=== PATIENT | male | born 1940 | race Caucasian/White ===

== ENCOUNTER 2017-07-20 05:09 | Day surgery (SDC) | payer OTHER, BC ==
[2017-07-07 12:19] VITALS: BMI 23.8
--- NOTE | 2017-07-08 13:02 | PATH ---
Cytology Non-Gynecological Report Patient Name: RAUL DOTY [facility]. Rec. #: [id number] /Age/Gender: 1940 (Age: 77) / M Account: [id number] Location: [facility] Taken: 07/07/2017 Received: 07/07/2017 Reported: 07/08/2017 Physicians: Jesus Bowie M.D. Specimen(s) Received URINE Clinical History Hematuria Final Diagnosis URINE FOR CYTOLOGY: SATISFACTORY FOR EVALUATION. NO MALIGNANT CELLS IDENTIFIED. SCATTERED DEGENERATE UROTHELIAL CELLS. DEGENERATED RED BLOOD CELLS. Electronically Signed Jose Antonio Carrera M.D. Gross Description Received is 15 cc of yellow fluid fresh. Two cytofunnel slides are made.
[~2017-07-20 05:09] MED LIST: POVIDONE-IODINE OINTMENT 10% - 28.4 GM TUBE TP ONE
[2017-07-20] MEDS ORDERED: HEPARIN NA (PORCINE) 5,000 UNITS/ML 1ML VIAL ONE (12:14)
[2017-07-20] MEDS ORDERED: PAPAVERINE HCL 30 MG/1 ML 10 ML VIAL NR ONE (12:14)
[2017-07-20] MEDS ORDERED: LIDOCAINE HCL 1%, 10 MG/ML (20ML VIAL) ONE (12:14)
[2017-07-20] MEDS ORDERED: DESFLURANE GAS 240 ML BOTTLE IH ONE (12:14)
[2017-07-20] MEDS ORDERED: ePHEDrine SULFATE 50 MG/1 ML AMPULE ONE (12:19)
[2017-07-20] MEDS ORDERED: PHENYLEPHRINE HCL 10 MG/1 ML SINGLE DOSE VIAL ONE (12:19)
[2017-07-20] MEDS ORDERED: SUCCINYLCHOLINE CHLORIDE 200 MG/10 ML VIAL ONE (12:20)
[2017-07-20] MEDS ORDERED: PROPOFOL 20 ML ONE ×4 (12:20)
[2017-07-20] MEDS ORDERED: MIDAZOLAM HCL 2 MG/2 ML SINGLE DOSE VIAL ONE (12:20)
[2017-07-20] MEDS ORDERED: LIDOCAINE HCL/PF 2% SDV 5ML VIAL ONE (12:27)
[2017-07-20] MEDS ORDERED: LIDOCAINE HCL 1%, 10 MG/ML (20ML VIAL) INF ONE (13:27)
[2017-07-20] MEDS ORDERED: HEPARIN NA (PORCINE) 5,000 UNITS/ML 1ML VIAL SQ ONE (13:27)
[2017-07-20] MEDS ORDERED: POVIDONE-IODINE OINTMENT 10% - 28.4 GM TUBE ONE (14:08)
[2017-07-20] MEDS ORDERED: POVIDONE-IODINE OINTMENT 10% - 28.4 GM TUBE TP ONE (14:31)
--- NOTE | 2017-07-20 14:42 | OP ---
Operative Note - Note: Operative Date: 07/20/17 Pre-Operative Diagnosis: Renal failure Operation: Creation AV fistula right arm Findings: Patent cephalic and basilic veins Post-Operative Diagnosis: Same as Pre-op Surgeon: Catarino Ribera Timber Robber: Ledy Vazquez Anesthesiologist/ADVERTISING VICE PRESIDENT: Eliud Leon Anesthesia: Fractional
--- NOTE | 2017-07-20 14:44 | HP ---
Satellite [facility] - Chief Complaint History of Present Illness: 77 year old man with renal failure stage 4. He is left handed. History Source: Patient Limitations to Obtaining History: No Limitations - Past Medical History Allergies/Adverse Reactions: Allergies Allergy/AdvReac Type Severity Reaction Status Date / Time No Known Allergies Allergy Verified 07/07/17 12:04 Cardiovascular: Yes: CAD, HTN, Hyperlipdemia - Current Medications Current Medications: Home Medications Medication Instructions Recorded Aspirin [Aspir 81] 81 mg PO DAILY 10/26/16 Amlodipine Besylate [Norvasc -] 10 mg PO DAILY 07/07/17 Isosorbide Mononitrate [Imdur -] 60 mg PO DAILY 07/07/17 Metoprolol Succinate [Toprol Xl -] 25 mg PO DAILY 07/07/17 Simvastatin [Zocor -] 20 mg PO HS 07/07/17 Satellite Physical Exam - Physical Examination Vital Signs: Vital Signs Period Temp Pulse Resp BP Sys/Rausch Pulse Ox Last 24 Hr 98.3 F 62 18 141/79 98 General Appearance: Alert & Oriented x3 ENT: Clear Lung: Clear to auscultation Heart: Regular rate & rhythm Abdomen: Soft Extremities: No edema Satellite Impression/Plan - Impression/Plan Impression: CKD Operative Procedure: Creation AV fistula right arm Date to be Performed: 07/20/17
[2017-07-20] MEDS ORDERED: ACETAMINOPHEN 325 MG TABLET (FP) PO PRN (14:47)
[2017-07-20] MEDS ORDERED: ACETAMINOPHEN WITH CODEINE 300MG/30MG TABLET PO PRN (14:48)
[2017-07-20] MEDS ORDERED: ONDANSETRON 4 MG/2 ML VIAL IVPUSH PRN (14:48)
--- NOTE | 2017-07-20 15:35 | OP ---
DATE OF OPERATION: 07/20/2017 SURGEON: Catarino Ribera MD PATIENT REGISTRATION REPRESENTATIVE: KIRSTEN Carr PROCEDURE: Creation arteriovenous fistula right arm. PREOPERATIVE DIAGNOSIS: Renal failure. POSTOPERATIVE DIAGNOSIS: Renal failure. ANESTHESIA: Fractional. ANESTHESIOLOGIST: Eliud Leon MD OPERATIVE FINDINGS: The right antecubital vein was patent, with runoff to both basilic and cephalic branches in the upper arm. The brachial artery was of normal cerebellar. OPERATIVE PROCEDURE: Following routine patient identification, side and site verification, intravenous sedation was established. The right arm was prepped with ChloraPrep. A Time-out was performed. One percent Xylocaine was infiltrated in the antecubital fossa, and then a longitudinal incision made. The subcutaneous tissues were divided using cautery for hemostasis. The antecubital vein was identified and carefully mobilized from the surrounding tissues. Small side branches were ligated. The cephalic and basilic branches were both preserved proximally. The distal cephalic vein was ligated. The deep communicating branch of the vein was then freed. The wound was deepened over the pulse and the brachial artery was mobilized and secured with a vessel loop. The distal branches were all individually secured. The artery was then occluded with vessel loops and a bulldog clamp. Then a longitudinal arteriotomy was made on the distal brachial artery, measuring approximately 6 mm in length. The vein was then opened through the deep branch and the end spatulated. It was anastomosed [id number] with the artery using running suture of 6-0 Prolene. Prior to completion of the suture line, the artery was allowed to back bleed and flush, and the vein was flushed with heparin solution. The suture line was completed and all vessels were released. There was good flow through the anastomosis with a palpable thrill in the vein proximally. Due to the adequate diameter of the cephalic vein, the decision was made to ligate the basilic vein just proximal to the anastomosis, and this was done with 2-0 silk. The wound was then irrigated and closed with interrupted suture of 3-0 Vicryl on the subcutaneous tissues and skin jacquie. A sterile dressing was applied. The patient was taken to the recovery room in stable condition. Beryl HIGGINBOTHAM/[id number] MTD
[2017-07-20 19:13] VITALS: BP 141/72; PULSE 69; TEMP 97.8
--- NOTE | 2017-07-21 15:54 | SURG ---
Surgery Awning Finisher Note Awning Finisher: Ledy Vazquez PA-C Date of Service: 07/20/17 Diagnosis: Renal failure Procedure: Creation AV fistula right arm I was present for the entirety of the operative procedure. For further detail, please refer to operative report. Visit type - Case Type Case Type: Scheduled Admission - Emergency Emergency Visit: No - New patient This patient is new to me today: Yes Date on this admission: 07/20/17 - Critical Care Critical Care patient: No
== END 2017-07-20 18:30 | disposition home or self-care (01) ==
LOC: JASU-SURG 05:09
PROVIDERS: ATTEND Surgery
PROC: 03170ZD Bypass Right Brachial Artery to Upper Arm Vein, Open Approach (ICD-10-PCS; principal; 2017-07-20 12:00)
DX: I12.0 Hypertensive chronic kidney disease with stage 5 chronic kidney disease or end stage renal disease (principal)
CPT/HCPCS: 88108; 94760; J1644

== ENCOUNTER 2017-07-31 09:13 | Inpatient (IN) | payer OTHER, BC ==
[2017-07-31 09:22] VITALS: BMI 26.9
--- NOTE | 2017-07-31 09:40 | PDOC ---
History of Present Illness <Alen Mcfarlane - Last Filed: 07/31/17 11:50> - General History Source: Patient Exam Limitations: No Limitations - History of Present Illness Initial Comments: 07/31/17 10:31 77 yo male with chronic kidney disease as a result of HTN, Diabetes and Dyslipidemia had fistula placed two weeks ago and saw his nitro worker on this past tuesday. He was feeling well then but feels awful now..... dyspnea, chest discomfort, malaise and fatigue. Called his doctor this morning who told him to come to the ED because he may need dialysis. Timing/Duration: changing over time, other (Getting worse over the past two or three days) Severity: moderate Modifying Factors: improves with: other (Nothing seems to make it worse or better) Associated Symptoms: reports: chest pain, malaise, shortness of breath <Asim Holden - Last Filed: 07/31/17 12:09> - General Chief Complaint: Chest Pain Stated Complaint: KIDNEY COMPLICATIONS Time Seen by Provider: 07/31/17 09:33 Past History <Alen Mcfarlane - Last Filed: 07/31/17 11:50> - Past Medical History Anemia: No Asthma: No Cancer: No Cardiac Disorders: No CVA: No COPD: No CHF: No Dementia: No Diabetes: Yes Dialysis: No (KIDNEY DISEASE) GI Disorders: No Disorders: No HTN: Yes Hypercholesterolemia: Yes Kidney Stones: (ESRD) Liver Disease: No Seizures: No Thyroid Disease: No - Surgical History Abdominal Surgery: Yes (bilat inguinal HERNIA) - Suicide/Smoking/Psychosocial Hx Smoking History: Former smoker Have you smoked in the past 12 months: No If you are a former smoker, when did you quit?: 30 years ago Information on smoking cessation initiated: No Hx Alcohol Use: No Drug/Substance Use Hx: No Substance Use Type: None Hx Substance Use Treatment: No <Asim Holden - Last Filed: 07/31/17 12:09> - Past Medical History Allergies/Adverse Reactions: Allergies Allergy/AdvReac Type Severity Reaction Status Date / Time No Known Allergies Allergy Verified 07/31/17 10:28 Home Medications: Ambulatory Orders Aspirin [Aspir 81] 81 mg PO DAILY 10/26/16 Amlodipine Besylate [Norvasc -] 10 mg PO DAILY 07/07/17 Isosorbide Mononitrate [Imdur -] 60 mg PO DAILY 07/07/17 Metoprolol Succinate [Toprol Xl -] 25 mg PO DAILY 07/07/17 Simvastatin [Zocor -] 20 mg PO HS 07/07/17 Cholecalciferol (Vitamin D3) [Vitamin D3 -] 400 unit PO DAILY 07/31/17 Review of Systems - Review of Systems Able to Perform ROS?: Yes Is the patient limited Urdu proficient: No Constitutional: Yes: See HPI HEENTM: No: Symptoms Reported Respiratory: Yes: See HPI Cardiac (ROS): Yes: See HPI ABD/GI: No: Symptoms Reported : No: Symptoms Reported Musculoskeletal: No: Symptoms Reported Integumentary: No: Symptoms Reported Neurological: No: Symptoms reported Psychiatric: No: Anxiety, Depression Endocrine: No: Symptoms Reported Hematologic/Lymphatic: No: Symptoms Reported All Other Systems: Reviewed and Negative <Asim Holden - Last Filed: 07/31/17 12:09> *Physical Exam - Vital Signs Last Vital Signs Temp Pulse Resp BP Pulse Ox 98.7 F 87 22 157/88 96 07/31/17 09:18 07/31/17 11:11 07/31/17 11:11 07/31/17 11:11 07/31/17 11:11 <Alen Mcfarlane - Last Filed: 07/31/17 11:50> - Vital Signs Last Vital Signs Temp Pulse Resp BP Pulse Ox 98.7 F 101 H 16 159/91 100 07/31/17 09:18 07/31/17 09:18 07/31/17 09:18 07/31/17 09:18 07/31/17 09:18 - Physical Exam Comments: 07/31/17 10:35 No conversational dyspnea // No orthopnea General Appearance: Yes: Nourished, Appropriately Dressed HEENT: positive: Normal ENT Inspection, Pharynx Normal, Other (NO Obvious JVD) Neck: positive: Supple. negative: Tender Respiratory/Chest: positive: Lungs Clear, Normal Breath Sounds. negative: Accessory Muscle Use Cardiovascular: positive: Regular Rhythm, Regular Rate. negative: JVD, Murmur Gastrointestinal/Abdominal: positive: Normal Bowel Sounds, Flat, Soft Lymphatic: negative: Adenopathy, Tenderness Musculoskeletal: positive: Normal Inspection Extremity: positive: Normal Capillary Refill, Normal Inspection Integumentary: positive: Normal Color, Dry, Warm Neurologic: positive: shaft repairer II-XII NML intact, Fully Oriented, Normal Mood/Affect <Asim Holden - Last Filed: 07/31/17 12:09> ED Treatment Course - LABORATORY CBC & Chemistry Diagram: 07/31/17 10:20 07/31/17 10:20 - ADDITIONAL ORDERS Additional order review: Laboratory Results 07/31/17 07/31/17 07/31/17 10:20 10:20 10:20 PT with INR 12.60 H INR 1.14 Sodium 140 Potassium 3.6 Chloride 109 H Carbon Dioxide 17 L D Anion Gap 14 BUN 93 H Creatinine 8.6 H* Creat Clearance w eGFR 6.03 Random Glucose 61 L D Lactic Acid Calcium 8.4 L Total Bilirubin 0.5 D AST 23 D ALT 22 Alkaline Phosphatase 94 Creatine Kinase 217 Troponin I 2.42 H* B-Natriuretic Peptide Cancelled 86688.35 H Total Protein 6.8 Albumin 3.1 L 07/31/17 09:46 PT with INR INR Sodium Potassium Chloride Carbon Dioxide Anion Gap BUN Creatinine Creat Clearance w eGFR Random Glucose Lactic Acid 0.7 Calcium Total Bilirubin AST ALT Alkaline Phosphatase Creatine Kinase Troponin I B-Natriuretic Peptide Total Protein Albumin 07/31/17 10:20 RBC 3.51 L MCV 85.8 MCHC 33.2 RDW 15.4 MPV 8.4 Neutrophils % 81.0 D Lymphocytes % 10.7 D Monocytes % 6.7 Eosinophils % 1.1 Basophils % 0.5 - Medications Given in the ED: ED Medications Discontinued Medications Generic Name Dose Route Start Last Admin Trade Name Freq PRN Reason Stop Dose Admin Metoprolol Tartrate 50 mg 07/31/17 11:31 07/31/17 11:41 Lopressor - PO 07/31/17 11:32 50 mg ONCE ONE Administration Nitroglycerin 0.4 mg 07/31/17 11:28 07/31/17 11:41 Nitrostat - SL 07/31/17 11:29 0.4 mg ONCE ONE Administration Ondansetron HCl 4 mg 07/31/17 09:54 07/31/17 10:36 Zofran Injection IVPUSH 07/31/17 09:55 4 mg ONCE ONE Administration <Alen Mcfarlane - Last Filed: 07/31/17 11:50> - LABORATORY CBC & Chemistry Diagram: 07/31/17 10:20 07/31/17 10:20 <Asim Holden - Last Filed: 07/31/17 12:09> Medical Decision Making - Medical Decision Making 07/31/17 11:[address] Dickens at 11:[address] Subramanian returned the page at 11:37 am Page sent to Dr. Bray at 11:20 am Page returned at 11:30 am Page sent to Dr. Roa at 11:[address] Tsai returned the page at 11:40 am Page sent to Dr. Bhandari at 11:[address] Bhandari returned the page at 11:37 am <Alen Mcfarlane - Last Filed: 07/31/17 11:50> - Medical Decision Making 07/31/17 11:[address] depression in V4-V5, No Old EKG for comparison, Troponin Elevated as well.... will consult Dr. Bray Will speak with PCP (Marlee) for admission Will speak with Nephrology and Vascular Surgery about Dialysis Will work towards admission and Dialysis 07/31/17 12:07 Cardiology wants patient to be totally pain free, Nitro and Lopressor Anticoagulated on Plavix and Heparin Spoke with Dr Jesus Gallo, Nephrology, no need for urgent dialysis (can delay catheter placement) Spoke with Vascular (aware of situation) Tried to speak with Bradford the [employer] in the ICU - still waiting to connect. Will admit to ICU <Asim Holden - Last Filed: 07/31/17 12:09> *DC/Admit/Observation/Transfer <Alen Mcfarlane - Last Filed: 07/31/17 11:50> - Discharge Dispostion Admit: Yes <Asim Holden - Last Filed: 07/31/17 12:09> Diagnosis at time of Disposition: Non-ST elevation RI (NSTEMI), End stage chronic kidney disease, Dyslipidemia Diabetes Qualifiers: Diabetes mellitus type: type 2 Diabetes mellitus complication status: with kidney complications Diabetes mellitus complication detail: with chronic kidney disease Diabetes mellitus terminal gauger insulin use: without terminal gauger use Chronic kidney disease stage: stage 5, not on chronic dialysis Qualified Code(s): E11.22 - Type 2 diabetes mellitus with diabetic chronic kidney disease Volume overload Qualifiers: Hypervolemia type: unspecified Qualified Code(s): E87.70 - Fluid overload, unspecified Hypertension Qualifiers: Hypertension type: essential hypertension Qualified Code(s): I10 - Essential ( primary) hypertension - Discharge Dispostion Condition at time of disposition: Improved
[2017-07-31] MEDS ORDERED: ONDANSETRON 4 MG/2 ML VIAL IVPUSH ONE (09:54)
[2017-07-31 10:30] LABS: BASOPHIL 0.5 % (0-2.0); EOSINOPHIL 1.1 % (0-4.5); MCH 28.5 pg (25.7-33.7); MCHC 33.2 g/dl (32.0-35.9); MEAN CELL VOLUME 85.8 fl (80-96); MEAN PLT VOLUME 8.4 fl (7.5-11.1); PLATELET COUNT 221 K/MM3 (134-434); RDW 15.4 % (11.9-15.9)
[2017-07-31] MEDS ORDERED: ONDANSETRON 4 MG/2 ML VIAL ONE (10:33)
[2017-07-31 10:43] LABS: INR 1.14 (0.82-1.09); PROTHROMBIN TIME (PATIENT) 12.6 SEC (9.98-11.88)
[2017-07-31 10:50] LABS: ALBUMIN 3.1 g/dl (3.4-5.0); ANION GAP 14 (8-16); BILIRUBIN,TOTAL 0.5 mg/dL (0.2-1.0); CALCIUM 8.4 mg/dL (8.5-10.1); CO2 17 mmol/L (21-32); GLUCOSE,RANDOM 61 mg/dL (74-106); SGOT/AST 23 U/L (15-37); SGPT/ALT 22 U/L (12-78); TOT PROT 6.8 g/dl (6.4-8.2)
[2017-07-31 11:04] LABS: ALK PHOS 94 U/L (45-117); CPK 217 IU/L (39-308)
[2017-07-31 11:06] LABS: CREATININE 8.6 mg/dL (0.7-1.3); TROPONIN I 2.42 ng/ml (0.00-0.05)
[2017-07-31] MEDS ORDERED: NITROGLYCERIN SUBLINGUAL 1/150 0.4 MG TAB SL ONE ×3 (11:28→12:39)
[2017-07-31] MEDS ORDERED: METOPROLOL TARTRATE 50 MG TABLET (FP) PO ONE (11:31)
[2017-07-31] MEDS ORDERED: METOPROLOL TARTRATE 50 MG TABLET (FP) ONE (11:37)
[2017-07-31] MEDS ORDERED: HEPARIN NA (PORCINE) 5,000 UNITS/ML 1ML VIAL IVPUSH PRN ×2 (11:47)
[2017-07-31] MEDS ORDERED: CLOPIDOGREL BISULFATE 300 MG TABLET PO ONE (11:47)
[2017-07-31] MEDS ORDERED: CLOPIDOGREL BISULFATE 300 MG TABLET ONE (11:54)
[2017-07-31] MEDS ORDERED: HEPARIN NA (PORCINE) 5,000 UNITS/ML 1ML VIAL ONE (11:55)
[2017-07-31] MEDS: HEPARIN INFUSION - 500 ML IVPB SCH (12:00)
[2017-07-31] MEDS ORDERED: FUROSEMIDE 40 MG/4 ML INJECTABLE VIAL IVPUSH ONE (12:02)
[2017-07-31] MEDS ORDERED: METOLAZONE 10 MG TABLET PO ONE (12:02)
[2017-07-31] MEDS ORDERED: HEPARIN INFUSION - 500 ML IVPB ONE (12:11)
[2017-07-31 12:36] LABS: URINE APPEARANCE CLEAR; URINE BILIRUBIN NEGATIVE (NEGATIVE); URINE BLOOD 1+ (NEGATIVE); URINE COLOR STRAW; URINE GLUCOSE (UA) 1+ (NEGATIVE); URINE KETONE TRACE (NEGATIVE); URINE NITRITE NEGATIVE (NEGATIVE); URINE UROBILINOGEN NEGATIVE mg/dL (0.2-1.0)
[2017-07-31 12:39] LABS: URINE PROTEIN 2+ (NEGATIVE)
[2017-07-31 12:50] LABS: URINE BACTERIA RARE /hpf (NONE SEEN); URINE RBC <1 /hpf (0-3); URINE WBC 1 /hpf (3-5)
[2017-07-31] MEDS ORDERED: FUROSEMIDE 40 MG/4 ML INJECTABLE VIAL IVPB ONE (14:12)
--- NOTE | 2017-07-31 14:41 | CON.NEP ---
Consult - Past Medical History Cardio/Vascular: Yes: CAD, HTN, Hyperlipdemia - Alcohol/Substance Use Hx Alcohol Use: No - Smoking History Smoking history: Former smoker Have you smoked in the past 12 months: No If you are a former smoker, when did you quit?: 30 years ago Home Medications - Allergies Allergies/Adverse Reactions: Allergies Allergy/AdvReac Type Severity Reaction Status Date / Time No Known Allergies Allergy Verified 07/31/17 10:28 - Home Medications Home Medications: Ambulatory Orders Aspirin [Aspir 81] 81 mg PO DAILY 10/26/16 Amlodipine Besylate [Norvasc -] 10 mg PO DAILY 07/07/17 Isosorbide Mononitrate [Imdur -] 60 mg PO DAILY 07/07/17 Metoprolol Succinate [Toprol Xl -] 25 mg PO DAILY 07/07/17 Simvastatin [Zocor -] 20 mg PO HS 07/07/17 Cholecalciferol (Vitamin D3) [Vitamin D3 -] 400 unit PO DAILY 07/31/17 Nephrology Consult - Height Height: 5 ft 3 in - Weight Weight: 152 lb - BMI Body Mass Index (BMI): 26.9 - Lab Results Anion Gap: Anion Gap Anion Gap 14 (8-16) 07/31/17 10:20 - Physical Examination Vital Signs: Vital Signs Temperature 98.5 F 07/31/17 13:23 Pulse Rate 74 07/31/17 13:23 Respiratory Rate 19 07/31/17 13:23 Blood Pressure 140/78 07/31/17 13:23 O2 Sat by Pulse Oximetry (%) 100 07/31/17 13:23 Assessment/Plan CKD5 r/o uremic symptoms- Recent nausea/vomiting on tuesday 5 days ago, not continuous, resolved after one day clinically stable, no urgent indication for dialysis fluid overload with exertional dyspnea and by CXR and BNP levels RUE AVF not yet ready (2 weeks old ACS - st and T wave depression, elevated TNI and BNP can occur in setting of renal failure with fluid overload - no peripheral edema HTN Neuro intact Plan- will need HD during this admission needs access for HD if he goes for cath, he will get HD post cath
[2017-07-31 14:51] LABS: URINE LEUK ESTERASE Negative (NEGATIVE)
--- NOTE | 2017-07-31 14:55 | CONSULT ---
Consult Referred by:: Pulm/CCM Reason for Consultation:: hypoxia, PR, ESRD - History of Present Illness Chief Complaint: chest pain and SOB History of Present Illness: This is a 77 yo man DM, CAD, CKD: stage 5 s/p recent AV fistula, HTN, HLD who developed progressive orthopnea, SOB/JACOBO with intermittent progressive chest pain over the last 24hrs. In ED patient hypertensive ([id number]) w/ CP t/w nitro SL x3 and lopressor 50mg po. Lasix 40mg and zaroxolyn given. Lab significant for SCr: 8.6, BUN: 93, troponin: 2.42, BNP: 17k. EKG: new ST depression v4-5. Cardiology was called. Plavix po and heparin gtt started. Nephrology consulted. - History Source History Provided By: Patient, Family Member, Medical Record - Past Medical History Cardio/Vascular: Yes: CAD, HTN, Hyperlipdemia Renal/: Yes: Renal Inusuff (stage 5) - Alcohol/Substance Use Hx Alcohol Use: No - Smoking History Smoking history: Former smoker Have you smoked in the past 12 months: No If you are a former smoker, when did you quit?: 30 years ago Home Medications - Allergies Allergies/Adverse Reactions: Allergies Allergy/AdvReac Type Severity Reaction Status Date / Time No Known Allergies Allergy Verified 07/31/17 10:28 - Home Medications Home Medications: Ambulatory Orders Aspirin [Aspir 81] 81 mg PO DAILY 10/26/16 Amlodipine Besylate [Norvasc -] 10 mg PO DAILY 07/07/17 Isosorbide Mononitrate [Imdur -] 60 mg PO DAILY 07/07/17 Metoprolol Succinate [Toprol Xl -] 25 mg PO DAILY 07/07/17 Simvastatin [Zocor -] 20 mg PO HS 07/07/17 Cholecalciferol (Vitamin D3) [Vitamin D3 -] 400 unit PO DAILY 07/31/17 Family Disease History - Family Disease History Family History: Unremarkable Review of Systems - Review of Systems Constitutional: reports: Lethargy, Malaise Cardiovascular: reports: Chest Pain, Shortness of Breath, Other (orthopnea, PND) Respiratory: reports: SOB on Exertion Gastrointestinal: reports: Nausea Neurological: reports: No Symptoms Physical Exam Vital Signs: Vital Signs Temperature 98.5 F 07/31/17 13:23 Pulse Rate 74 07/31/17 13:23 Respiratory Rate 19 07/31/17 13:23 Blood Pressure 140/78 07/31/17 13:23 O2 Sat by Pulse Oximetry (%) 100 07/31/17 13:23 Constitutional: Yes: Moderate Distress Eyes: Yes: EOM Intact Cardiovascular: Yes: S1, S2 Respiratory: Yes: On Nasal O2, Rales, Wheezes Gastrointestinal: Yes: Normal Bowel Sounds, Soft Edema: LLE: 1+, RLE: 1+ Integumentary: Yes: WNL Neurological: Yes: Alert, Oriented Labs: CBCD WBC 9.0 K/mm3 (4.0-10.0) D 07/31/17 10:20 RBC 3.51 M/mm3 (4.00-5.60) L 07/31/17 10:20 Hgb 10.0 GM/dL (11.7-16.9) L 07/31/17 10:20 Hct 30.1 % (35.4-49) L 07/31/17 10:20 MCV 85.8 fl (80-96) 07/31/17 10:20 MCHC 33.2 g/dl (32.0-35.9) 07/31/17 10:20 RDW 15.4 % (11.9-15.9) 07/31/17 10:20 Plt Count 221 K/MM3 (134-434) 07/31/17 10:20 MPV 8.4 fl (7.5-11.1) 07/31/17 10:20 CMP Sodium 140 mmol/L (136-145) 07/31/17 10:20 Potassium 3.6 mmol/L (3.5-5.1) 07/31/17 10:20 Chloride 109 mmol/L (98-107) H 07/31/17 10:20 Carbon Dioxide 17 mmol/L (21-32) L D 07/31/17 10:20 Anion Gap 14 (8-16) 07/31/17 10:20 BUN 93 mg/dL (7-18) H 07/31/17 10:20 Creatinine 8.6 mg/dL (0.7-1.3) H* 07/31/17 10:20 Creat Clearance w eGFR 6.03 (>60) 07/31/17 10:20 Random Glucose 61 mg/dL (74-106) L D 07/31/17 10:20 Calcium 8.4 mg/dL (8.5-10.1) L 07/31/17 10:20 Total Bilirubin 0.5 mg/dL (0.2-1.0) D 07/31/17 10:20 AST 23 U/L (15-37) D 07/31/17 10:20 ALT 22 U/L (12-78) 07/31/17 10:20 Alkaline Phosphatase 94 U/L (45-117) 07/31/17 10:20 Total Protein 6.8 g/dl (6.4-8.2) 07/31/17 10:20 Albumin 3.1 g/dl (3.4-5.0) L 07/31/17 10:20 CARDIAC ENZYMES Creatine Kinase 217 IU/L (39-308) 07/31/17 10:20 Troponin I 2.42 ng/ml (0.00-0.05) H* 07/31/17 10:20 Imaging - Results Chest X-ray: Report Reviewed, Image Reviewed (PVC) Problem List - Problems (1) Diabetes Code(s): E11.9 - TYPE 2 DIABETES MELLITUS WITHOUT COMPLICATIONS Qualifiers: Diabetes mellitus type: type 2 Diabetes mellitus complication status: with kidney complications Diabetes mellitus complication detail: with chronic kidney disease Diabetes mellitus termite renewal inspector insulin use: without care home use Chronic kidney disease stage: stage 5, not on chronic dialysis Qualified Code(s): E11.22 - Type 2 diabetes mellitus with diabetic chronic kidney disease; E11.22 - Type 2 diabetes mellitus with diabetic chronic kidney disease; E11.22 - Type 2 diabetes mellitus with diabetic chronic kidney disease; E11.22 - Type 2 diabetes mellitus with diabetic chronic kidney disease; E11.22 - Type 2 diabetes mellitus with diabetic chronic kidney disease; N18.1 - Chronic kidney disease, stage 1; N18.1 - Chronic kidney disease, stage 1; Z79.4 - snf (current) use of insulin; Z79.4 - terminal makeup operator (current) use of insulin; Z79.4 - snf (current) use of insulin; Z79.4 - terminal makeup operator (current) use of insulin (2) Dyslipidemia Code(s): E78.5 - HYPERLIPIDEMIA, UNSPECIFIED (3) End stage chronic kidney disease Code(s): N18.6 - END STAGE RENAL DISEASE Z99.2 - DEPENDENCE ON RENAL DIALYSIS (4) Hypertension Code(s): I10 - ESSENTIAL (PRIMARY) HYPERTENSION Qualifiers: Hypertension type: essential hypertension Qualified Code(s): I10 - Essential (primary) hypertension; I10 - Essential (primary) hypertension; I10 - Essential (primary) hypertension (5) Non-ST elevation PR (NSTEMI) Code(s): I21.4 - NON-ST ELEVATION (NSTEMI) MYOCARDIAL INFARCTION (6) Volume overload Code(s): E87.70 - FLUID OVERLOAD, UNSPECIFIED Qualifiers: Hypervolemia type: unspecified Qualified Code(s): E87.70 - Fluid overload, unspecified; E87.70 - Fluid overload, unspecified (7) Hypoxia Code(s): R09.02 - HYPOXEMIA Assessment/Plan a/p: 77 yo man DM, CKD stage 5 who had progressive orthopnea, JACOBO/SOB and intermittent CP likely w/ recent PR now with hypoxia r/t pulmonary vascular congestion -Cardiology consulted -Lopressor 50mg q6hr Nitro for BP goal 120-140 -Heparin gtt -plavix/ASA/statin -trend troponin -possible transfer for cardiac cath -EKG/TTE -Renal consulted -no acute indication for HD but will likely need this admission, will need stable cardiac exam prior to iHD initiation -will attempt high dose lasix -will need dialysis cath for HD -GI prophylaxis given anticoagulation -CPAP for pulmonary edema -O2 for sat >92% -normal transfusion thresholds Boerem ACNP Pulm/CCM CCT: 45m
[2017-07-31] MEDS ORDERED: FAMOTIDINE 20 MG/50 ML IVPB 50 ML IVPB SCH (15:00)
[2017-07-31] MEDS ORDERED: ASPIRIN 325 MG TABLET PO ONE (15:06)
--- NOTE | 2017-07-31 15:19 | EKG ---
Test Reason : Blood Pressure : / mmHG Vent. Rate : 085 BPM Atrial Rate : 085 BPM P-R Int : 140 ms QRS Dur : 098 ms QT Int : 418 ms P-R-T Axes : 032 -33 020 degrees QTc Int : 497 ms NORMAL SINUS RHYTHM POSSIBLE LEFT ATRIAL ENLARGEMENT (RBBB AND LEFT ANTERIOR FASCICULAR BLOCK) LEFT VENTRICULAR HYPERTROPHY PROLONGED QT ABNORMAL ECG WHEN COMPARED WITH ECG OF 31-JUL-2017 09:30, ST NO LONGER DEPRESSED IN ANTERIOR LEADS NONSPECIFIC T WAVE ABNORMALITY NOW EVIDENT IN INFERIOR LEADS REPEAT EKG IF CLINICALLY INDICATED Confirmed by MEGHANA LOREDO MD ([id number]) on 07/31/2017 3:19:15 PM Referred By: Lashay JEAN-BAPTISTE Confirmed By:MEGHANA LOREDO MD
--- NOTE | 2017-07-31 15:31 | EKG ---
Test Reason : Blood Pressure : / mmHG Vent. Rate : 099 BPM Atrial Rate : 099 BPM P-R Int : 144 ms QRS Dur : 106 ms QT Int : 384 ms P-R-T Axes : 031 -37 082 degrees QTc Int : 492 ms NORMAL SINUS RHYTHM POSSIBLE LEFT ATRIAL ENLARGEMENT LEFT AXIS DEVIATION LEFT ANTERIOR HEMIBLOCK MARKED ST ABNORMALITY, POSSIBLE ANTEROLATERAL SUBENDOCARDIAL INJURY PROLONGED QT ABNORMAL ECG NO PREVIOUS ECGS AVAILABLE FOLLOW EKG AND CLINICAL CORRELATION IS RECOMMENDED Confirmed by MEGHANA LOREDO MD ([id number] on 07/31/2017 3:31:00 PM Referred By: Confirmed By:MEGHANA LOREDO MD
[2017-07-31] MEDS: NITROGLYCERIN 25MG/D5W 250ML 250 ML IVPB SCH (15:50)
--- NOTE | 2017-07-31 18:19 | HP ---
Admitting History and Physical - Primary Care Physician PCP: Rehana Dickens - Admission Chief Complaint: Shortness of breath History of Present Illness: 77 yo male with significant past medical history of DM, CAD, CKD: stage 5 s/p recent AV fistula, HTN, HLD, presented to the ER with shortness of breath on exertion, progressive orthopnea and intermittent progressive chest pain over the last 24hrs. In ED patient hypertensive ([id number]) w/ CP t/w nitro SL x3 and lopressor 50mg po. Lasix 40mg and zaroxolyn given. Lab significant for SCr: 8.6 , BUN: 93, troponin: 2.42, BNP: 17k. EKG: new ST depression v4-5. Cardiology was called. Plavix po and heparin gtt started. Nephrology consulted. History Source: Family Member, Medical Record Limitations to Obtaining History: Clinical Condition, Physical Impairment - Past Medical History Cardiovascular: Yes: CAD, HTN, Hyperlipdemia Renal/: Yes: Renal Inusuff (stage 5) - Smoking History Smoking history: Former smoker Have you smoked in the past 12 months: No If you are a former smoker, when did you quit?: 30 years ago - Alcohol/Substance Use Hx Alcohol Use: No Home Medications - Allergies Allergies/Adverse Reactions: Allergies Allergy/AdvReac Type Severity Reaction Status Date / Time No Known Allergies Allergy Verified 07/31/17 10:28 - Home Medications Home Medications: Ambulatory Orders Aspirin [Aspir 81] 81 mg PO DAILY 10/26/16 Amlodipine Besylate [Norvasc -] 10 mg PO DAILY 07/07/17 Isosorbide Mononitrate [Imdur -] 60 mg PO DAILY 07/07/17 Metoprolol Succinate [Toprol Xl -] 25 mg PO DAILY 07/07/17 Simvastatin [Zocor -] 20 mg PO HS 07/07/17 Cholecalciferol (Vitamin D3) [Vitamin D3 -] 400 unit PO DAILY 07/31/17 Review of Systems - Review of Systems Constitutional: reports: Weakness Eyes: reports: No Symptoms HENT: reports: Hearing Loss Neck: reports: No Symptoms Cardiovascular: reports: Chest Pain, Shortness of Breath Respiratory: reports: Orthopnea, SOB on Exertion Gastrointestinal: reports: No Symptoms Genitourinary: reports: No Symptoms Musculoskeletal: reports: No Symptoms Neurological: reports: No Symptoms Endocrine: reports: No Symptoms Hematology/Lymphatic: reports: No Symptoms Physical Examination Vital Signs: Vital Signs Temperature 98.5 F 07/31/17 13:23 Pulse Rate 74 07/31/17 13:23 Respiratory Rate 19 07/31/17 13:23 Blood Pressure 140/78 07/31/17 13:23 O2 Sat by Pulse Oximetry (%) 99 07/31/17 17:23 Constitutional: Yes: Anxious, Moderate Distress Eyes: Yes: Conjunctiva Clear, EOM Intact HENT: Yes: Atraumatic, Normocephalic Neck: Yes: Supple, Trachea Midline Cardiovascular: Yes: Regular Rate and Rhythm Respiratory: Yes: Dullness (B/L Lung base) Gastrointestinal: Yes: Normal Bowel Sounds, Soft Peripheral Pulses WNL: Yes Neurological: Yes: Alert, Oriented ...Motor Strength: WNL Psychiatric: Yes: Alert, Oriented Imaging - Results Chest X-ray: Report Reviewed Problem List - Problems (1) Non-ST elevation MS (NSTEMI) Assessment/Plan: Abnormal EKG. Elevated Troponins. Cardiology consulted. On Heprain gtt Continue aspirin/plavix/statin. Continue metoprolol. Possible transfer for cardiac cath. Code(s): I21.4 - NON-ST ELEVATION (NSTEMI) MYOCARDIAL INFARCTION (2) End stage chronic kidney disease Assessment/Plan: Renal consult noted. S/P V fistula 2 weeks ago. Not ready yet. Will need dialysis this admission. Code(s): N18.6 - END STAGE RENAL DISEASE Z99.2 - DEPENDENCE ON RENAL DIALYSIS (3) Diabetes Assessment/Plan: Continue ISS and current meds. Code(s): E11.9 - TYPE 2 DIABETES MELLITUS WITHOUT COMPLICATIONS Qualifiers: Diabetes mellitus type: type 2 Diabetes mellitus complication status: with kidney complications Diabetes mellitus complication detail: with chronic kidney disease Diabetes mellitus termite renewal inspector insulin use: without termite renewal inspector use Chronic kidney disease stage: stage 5, not on chronic dialysis Qualified Code(s): E11.22 - Type 2 diabetes mellitus with diabetic chronic kidney disease; E11.22 - Type 2 diabetes mellitus with diabetic chronic kidney disease; E11.22 - Type 2 diabetes mellitus with diabetic chronic kidney disease; E11.22 - Type 2 diabetes mellitus with diabetic chronic kidney disease; E11.22 - Type 2 diabetes mellitus with diabetic chronic kidney disease; N18.1 - Chronic kidney disease, stage 1; N18.1 - Chronic kidney disease, stage 1; Z79.4 - shelter (current) use of insulin; Z79.4 - termite treater (current) use of insulin; Z79.4 - termite treater (current) use of insulin; Z79.4 - termite treater (current) use of insulin (4) Dyslipidemia Assessment/Plan: Continue atorvastatin. Code(s): E78.5 - HYPERLIPIDEMIA, UNSPECIFIED (5) Hypertension Assessment/Plan: Continue metoprolol Code(s): I10 - ESSENTIAL (PRIMARY) HYPERTENSION Qualifiers: Hypertension type: essential hypertension Qualified Code(s): I10 - Essential (primary) hypertension; I10 - Essential (primary) hypertension; I10 - Essential (primary) hypertension (6) ACS (acute coronary syndrome) Code(s): I24.9 - ACUTE ISCHEMIC HEART DISEASE, UNSPECIFIED
--- NOTE | 2017-07-31 18:35 | CON.CARD ---
Cardiology Consult (text) - Consultation Consultation Note: CC: CP/nstemi 77 yo with h/o cad (s/p mild mi 1990 per pt tx with cath/angioplasty), htn, hl, carotid dz s/p left cea 02/2017, ESRD s/p AV fisutula last month in anticipation of HD initiation, htn, hld, dm here with cp/nstemi. Central non-radiating cp. acute onset last night. Intermittent sx's severe enough to prevent him from sleeping. Mild improvement with sitting up and resolution with burping. Similar to pain he had with his last DC in 1990. Recently with renee walking minimal distance, unchanged. Denies orthopnea. Denies recent cp with exertion. In ED was tachycardic, + CP --> nitro SL x3 and lopressor 50mg po with resolution of chest discomfort and resolution of tachycardia. plavix, asa, heparin drip administered. CXR with congestion --> Lasix 40mg iv x 1 and zaroxolyn 10 mg PO x1 given with poor uop response. In ICU, . Currently patient is tachypneic but states his breathing is at baseline. No recurrence of CP since arriving in ICU. In ICU lasix 120 mg IV x 1 given with good uop response. BP's still not at goal so nitroglycerin drip started. pmhx/pshx: per hip Social hx; Former smoker fam hx: no hx of heart disease ros: per hpi Ambulatory Orders Aspirin [Aspir 81] 81 mg PO DAILY 10/26/16 Amlodipine Besylate [Norvasc -] 10 mg PO DAILY 07/07/17 Isosorbide Mononitrate [Imdur -] 60 mg PO DAILY 07/07/17 Metoprolol Succinate [Toprol Xl -] 25 mg PO DAILY 07/07/17 Simvastatin [Zocor -] 20 mg PO HS 07/07/17 Cholecalciferol (Vitamin D3) [Vitamin D3 -] 400 unit PO DAILY 07/31/17 Current Medications Aspirin (Ecotrin -) 81 mg PO DAILY [facility]U Atorvastatin Calcium (Lipitor -) 80 mg PO HS MAU Clopidogrel Bisulfate (Plavix -) 75 mg PO DAILY MAU Heparin Sodium (Porcine) (Heparin -) 1,000 unit IVPUSH PRN PRN PRN Reason: Heparin Heparin Sodium (Porcine) (Heparin -) 5,000 unit IVPUSH PRN PRN PRN Reason: Heparin Last Admin: 07/31/17 12:14 Dose: 5,000 unit Heparin Sodium/Dextrose (Heparin Infusion -) 500 mls @ 20 mls/hr IVPB TITR MAU ; 1,000 UNITS/HR PRN Reason: Protocol Last Admin: 07/31/17 12:00 Dose: 20 mls/hr Famotidine/Sodium Chloride (Pepcid 20 Mg Premixed Ivpb -) 50 mls @ 100 mls/hr IVPB Q2D MAU Last Admin: 07/31/17 15:50 Dose: 100 mls/hr Nitroglycerin/Dextrose (Nitroglycerin 25mg/D5w 250ml) 250 mls @ 6 mls/hr IVPB TITR MAU; 10 MCG/MIN PRN Reason: Protocol Last Admin: 07/31/17 15:50 Dose: 6 mls/hr Sodium Bicarbonate (Sodium Bicarbonate -) 650 mg PO TID MAU Vital Signs - 24 hr 07/31/17 07/31/17 07/31/17 09:18 09:46 09:50 Temperature 98.7 F Pulse Rate 101 H Pulse Rate [ Apical] Respiratory 16 Rate Blood Pressure 159/91 Blood Pressure [Left Arm] O2 Sat by Pulse 100 100 100 Oximetry (%) 07/31/17 07/31/17 07/31/17 11:11 11:55 12:32 Temperature Pulse Rate Pulse Rate [ 87 89 70 Apical] Respiratory 22 24 18 Rate Blood Pressure Blood Pressure 157/88 136/75 133/87 [Left Arm] O2 Sat by Pulse 96 96 Oximetry (%) 07/31/17 07/31/17 13:23 17:23 Temperature 98.5 F Pulse Rate Pulse Rate [ 74 Apical] Respiratory 19 Rate Blood Pressure Blood Pressure 140/78 [Left Arm] O2 Sat by Pulse 100 99 Oximetry (%) Intake & Output 07/29/17 07/30/17 07/31/17 08/01/17 07:59 07:59 07:59 07:59 Intake Total 168 Output Total 100 Balance 68 Weight 152 lb nad, calm tachypneic (RR 30) jvd increased, neck supple bibasilar rales, nl effort rrr nl s1, s2. no mrg. displaced pmi + bs soft nt nd ext without e/c/c diminished dp/pt no carotid bruit aaox3 no jaundice, diaphoresis. CBC, BMP 07/31/17 10:20 07/31/17 10:20 Laboratory Tests 07/31/17 07/31/17 09:46 10:20 Lactic Acid 0.7 Total Bilirubin 0.5 D AST 23 D ALT 22 Alkaline Phosphatase 94 Creatine Kinase 217 Creatine Kinase Index 5.8 H CK-MB (CK-2) 12.766 H Troponin I 2.42 H* B-Natriuretic Peptide 60263.35 H Albumin 3.1 L EKG 07/31 #1: nsr, 99 bpm. lad. prolonged qt. New downsloping STD in the anterolateral leads. EKG 07/31 #2: nsr, 85 bpm. lad. prolonged qt. anterolateral changes still present but much improved. tele: sr cxr: cm. congestion. possible RLL infiltrate. echo 10/2016: nl lv/rv, no sig valve path mibi 10/2016: nl mpi, nl lvef.eg 77 yo with h/o cad (s/p mild mi 1990 per pt tx with cath/angioplasty), htn, hl, carotid dz s/p left cea 02/2017, ESRD s/p AV fisutula last month in anticipation of HD initiation, htn, hld, dm here with cp/nstemi. CP/nstemi/known cad - Initial EKG borderline tachycardic with new ekg changes (improved on follow up ekg after heart rate slowed). - ACS protocol: asa, plavix, heparin, statin. nitroglycerin to keep patient cp free and sys bp < 140. Can add metoprolol tartrate 25 mg or 50 mg (depending on bp) TID to maintain HR < 70. - s/p lasix 120 mg x 1 today with good uop response. Would repeat dose tomorrow. Can use bipap if needed. - discussed recommendation for cardiac catheterization with patient and family. Patient states he would like to be dnr/dni. Counseled patient on the need to temporarily reverse dnr/dni jordy-procedure in order to get cardiac catheterization. However, patient currently declining. --> con't medical management of nstemi per patient preference. - repeat echo in am. - HD initiation per renal and when stable from perspective of nstemi. htn - as above Hl - con't statin s/p L CEA 02/2017 - no neurologic sx's. anti-platelets, statin as above ESRD s/p AV fistula last month in anticipation of HD initiation (not yet mature) - timing of HD intiation per renal. Currently no need for emergent HD. Recommend deferring for today until there is more information on clinical course.
[2017-07-31] MEDS ORDERED: POTASSIUM CHLORIDE TABS 20 MEQ TABLET.ER (FP) PO ONE (19:07)
[2017-07-31 19:53] LABS: TROPONIN I 5.11 ng/ml (0.00-0.05)
[2017-07-31] MEDS: SODIUM BICARBONATE 650 MG TABLET PO SCH (21:49)
[2017-07-31] MEDS: METOPROLOL TARTRATE 25 MG TABLET (FP) PO SCH (21:49)
[2017-07-31] MEDS: ATORVASTATIN CA 80 MG TABLET (FP) PO SCH (21:49)
[2017-08-01 02:06] LABS: TROPONIN I 6.94 ng/ml (0.00-0.05)
[2017-08-01 05:58] LABS: BASOPHIL 0.2 % (0-2.0); EOSINOPHIL 0.6 % (0-4.5); MCH 28.6 pg (25.7-33.7); MCHC 33.2 g/dl (32.0-35.9); MEAN CELL VOLUME 86.2 fl (80-96); NEUTROPHILS 79.9 % (42.8-82.8); PLATELET COUNT 212 K/MM3 (134-434); RDW 15.4 % (11.9-15.9); WHITE BLOOD COUNT 9.6 K/mm3 (4.0-10.0)
[2017-08-01] MEDS: SODIUM BICARBONATE 650 MG TABLET PO SCH ×3 (06:13→21:41)
[2017-08-01] MEDS: METOPROLOL TARTRATE 25 MG TABLET (FP) PO SCH ×3 (06:13→21:41)
--- NOTE | 2017-08-01 09:17 | PN ---
Physical Exam: SUBJECTIVE: Patient seen and examined at bedside. He states he has been experiencing the "gas" pains that caused him to come to hospital. He restates his desire to not have cardiac catheterization at this time. OBJECTIVE: Vital Signs Period Temp Pulse Resp BP Sys/Rausch Pulse Ox Last 24 Hr 98.5 F-100.4 F 70-88 18-26 133-153/74-90 98-100 GENERAL: The patient is awake, alert, and fully oriented, in no acute distress. HEAD: Normal with no signs of trauma. EYES: PERRL, extraocular movements intact, sclera anicteric, conjunctiva clear. No ptosis. NECK: Trachea midline, full range of motion, supple. No JVD. LUNGS: Breath sounds equal, clear to auscultation bilaterally, no wheezes, no crackles, no accessory muscle use. HEART: Regular rate and rhythm, S1, S2 without murmur, rub or gallop. ABDOMEN: Soft, nontender, nondistended, normoactive bowel sounds, no guarding, no rebound, no hepatosplenomegaly, no masses. (+) flatus. EXTREMITIES: 1+ pulses, warm, well-perfused, no edema. NEUROLOGICAL: Cranial nerves II through XII grossly intact. Normal speech, gait not observed. PSYCH: Normal mood, normal affect. SKIN: Warm, dry, normal turgor, no rashes or lesions noted Laboratory Results - last 24 hr 07/31/17 07/31/17 08/01/17 17:54 17:54 01:00 WBC RBC Hgb Hct MCV MCH MCHC RDW Plt Count MPV Neutrophils % Lymphocytes % Monocytes % Eosinophils % Basophils % PTT (Actin FS) 55.3 H Creatine Kinase 259 292 Creatine Kinase Index 8.0 H* 5.4 H CK-MB (CK-2) 20.813 H 16.000 H Troponin I 5.11 H* D 6.94 H* D 08/01/17 05:00 WBC 9.6 RBC 3.51 L Hgb 10.0 L Hct 30.2 L MCV 86.2 MCH 28.6 MCHC 33.2 RDW 15.4 Plt Count 212 MPV 9.0 Neutrophils % 79.9 Lymphocytes % 9.9 Monocytes % 9.4 Eosinophils % 0.6 Basophils % 0.2 PTT (Actin FS) Creatine Kinase Creatine Kinase Index CK-MB (CK-2) Troponin I Active Medications Generic Name Dose Route Start Last Admin Trade Name Freq PRN Reason Stop Dose Admin Aspirin 81 mg 08/01/17 10:00 Ecotrin - PO DAILY MAU Atorvastatin Calcium 80 mg 07/31/17 22:00 07/31/17 21:49 Lipitor - PO 80 mg HS MAU Administration Clopidogrel Bisulfate 75 mg 08/01/17 10:00 Plavix - PO DAILY MAU Furosemide 120 mg 08/01/17 10:00 Lasix Injection - IVPUSH DAILY MAU Heparin Sodium (Porcine) 1,000 unit 07/31/17 11:47 Heparin - IVPUSH PRN PRN Heparin Heparin Sodium (Porcine) 5,000 unit 07/31/17 11:47 07/31/17 12:14 Heparin - IVPUSH 5,000 unit PRN PRN Administration Heparin Heparin Sodium/Dextrose 500 mls @ 20 mls/hr 07/31/17 12:00 07/31/17 12:00 Heparin Infusion - IVPB 20 mls/hr TITR MAU Administration Protocol 1,000 UNITS/HR Nitroglycerin/Dextrose 250 mls @ 6 mls/hr 07/31/17 15:15 07/31/17 15:50 Nitroglycerin 25mg/D5w 250ml IVPB 6 mls/hr TITR MAU Administration Protocol 10 MCG/MIN Metoprolol Tartrate 25 mg 07/31/17 22:00 08/01/17 06:13 Lopressor - PO 25 mg TID MAU Administration Sodium Bicarbonate 650 mg 07/31/17 22:00 08/01/17 06:13 Sodium Bicarbonate - PO 650 mg TID AMU Administration echo 07/31/2017: nl lv/rv, no sig valve path ASSESSMENT/PLAN: A: 77yo man with NSTEMI. Refusing catheterization at this time. Will continue with medical treatment. P: NSTEMI - heparin gtt - metoprolol - Plavix - ASA - continuous cardiac monitoring - Lipitor - pt still refusing Cardiac cath - no significant change to EKG- QT prolonged - echo unchanged CAD - see above ESRD - right forearm AVF present. jacquie removed today. Needs maturation prior to use. - HD per renal - appreciate renal consult HTN - metoprolol - Lasix - Imdur F/E/N - low Na diet - replete prn PPX - heparin gtt Dispo- continues to request medical management of NSTEMI. Refusing cath. Code Status- DNR/DNI Visit type - Emergency Visit Emergency Visit: Yes ED Registration Date: 07/31/17 Care time: The patient presented to the Emergency Department on the above date and was hospitalized for further evaluation of their emergent condition. - New Patient This patient is new to me today: Yes Date on this admission: 08/01/17 - Critical Care Critical Care patient: Yes Total Critical Care Time (in minutes): 30 Critical Care Statement: The care of this patient involved high complexity decision making to prevent further life threatening deterioration of the patient 's condition and/or to evaluate & treat vital organ system(s) failure or risk of failure.
[2017-08-01] MEDS: FUROSEMIDE 40 MG/4 ML INJECTABLE VIAL IVPUSH SCH (09:59)
[2017-08-01] MEDS: CLOPIDOGREL BISULFATE 75 MG TABLET (FP) PO SCH (09:59)
[2017-08-01] MEDS: ASPIRIN COATED 81 MG TABLET.EC PO SCH (10:00)
[2017-08-01] MEDS: HEPARIN INFUSION - 500 ML IVPB SCH (10:00)
[2017-08-01] MEDS: HEPARIN NA (PORCINE) 5,000 UNITS/ML 1ML VIAL IVPUSH PRN (10:03)
[2017-08-01 11:15] LABS: ALBUMIN 2.7 g/dl (3.4-5.0); ANION GAP 14 (8-16); CALCIUM 7.9 mg/dL (8.5-10.1); CO2 20 mmol/L (21-32)
--- NOTE | 2017-08-01 11:16 | PN ---
Progress Note (short form) - Note Progress Note: Consultation Note: CC: CP/nstemi Current Medications Aspirin (Ecotrin -) 81 mg PO DAILY [facility] Last Admin: 08/01/17 10:00 Dose: 81 mg Atorvastatin Calcium (Lipitor -) 80 mg PO HS [facility] Last Admin: 07/31/17 21:49 Dose: 80 mg Clopidogrel Bisulfate (Plavix -) 75 mg PO DAILY [facility] Last Admin: 08/01/17 09:59 Dose: 75 mg Furosemide (Lasix Injection -) 120 mg IVPUSH DAILY [facility] Last Admin: 08/01/17 09:59 Dose: 120 mg Heparin Sodium (Porcine) (Heparin -) 1,000 unit IVPUSH PRN PRN PRN Reason: Heparin Last Admin: 08/01/17 10:03 Dose: 1,000 unit Heparin Sodium (Porcine) (Heparin -) 5,000 unit IVPUSH PRN PRN PRN Reason: Heparin Last Admin: 07/31/17 12:14 Dose: 5,000 unit Heparin Sodium/Dextrose (Heparin Infusion -) 500 mls @ 20 mls/hr IVPB TITR MAU ; 1,000 UNITS/HR PRN Reason: Protocol Last Admin: 07/31/17 12:00 Dose: 20 mls/hr Nitroglycerin/Dextrose (Nitroglycerin 25mg/D5w 250ml) 250 mls @ 6 mls/hr IVPB TITR MAU; 10 MCG/MIN PRN Reason: Protocol Last Admin: 07/31/17 15:50 Dose: 6 mls/hr Metoprolol Tartrate (Lopressor -) 25 mg PO TID [facility] Last Admin: 08/01/17 06:13 Dose: 25 mg Sodium Bicarbonate (Sodium Bicarbonate -) 650 mg PO TID [facility] Last Admin: 08/01/17 06:13 Dose: 650 mg Vital Signs - 24 hr 07/31/17 07/31/17 07/31/17 11:55 12:32 13:23 Temperature 98.5 F Pulse Rate Pulse Rate [ 89 70 74 Apical] Respiratory 24 18 19 Rate Blood Pressure Blood Pressure 136/75 133/87 140/78 [Left Arm] O2 Sat by Pulse 96 100 Oximetry (%) 07/31/17 07/31/17 07/31/17 17:23 20:02 20:40 Temperature 100.4 F H Pulse Rate 80 Pulse Rate [ Apical] Respiratory 23 23 Rate Blood Pressure 136/74 Blood Pressure [Left Arm] O2 Sat by Pulse 99 98 Oximetry (%) 07/31/17 08/01/17 08/01/17 22:00 00:00 02:00 Temperature 99.9 F H 99.8 F H Pulse Rate 86 88 80 Pulse Rate [ Apical] Respiratory 26 H 24 24 Rate Blood Pressure 148/81 141/80 153/90 Blood Pressure [Left Arm] O2 Sat by Pulse Oximetry (%) 08/01/17 08/01/17 08/01/17 04:00 06:00 08:00 Temperature 99.8 F H Pulse Rate 85 88 82 Pulse Rate [ Apical] Respiratory 22 20 33 H Rate Blood Pressure 133/75 143/80 135/76 Blood Pressure [Left Arm] O2 Sat by Pulse Oximetry (%) 08/01/17 08/01/17 09:56 10:00 Temperature 99.0 F Pulse Rate 81 80 Pulse Rate [ Apical] Respiratory 33 H Rate Blood Pressure 142/82 Blood Pressure [Left Arm] O2 Sat by Pulse 95 Oximetry (%) Intake & Output 07/30/17 07/31/17 08/01/17 08/02/17 07:59 07:59 07:59 07:59 Intake Total 480 Output Total 1700 Balance -1220 Weight 145 lb 4.554 oz nad, calm tachypneic (RR 30) jvd increased, neck supple bibasilar rales, nl effort rrr nl s1, s2. no mrg. displaced pmi + bs soft nt nd ext without e/c/c diminished dp/pt no carotid bruit aaox3 no jaundice, diaphoresis. CBC, BMP 08/01/17 05:00 08/01/17 05:00 EKG 07/31 #1: nsr, 99 bpm. lad. prolonged qt. New downsloping STD in the anterolateral leads. EKG 07/31 #2: nsr, 85 bpm. lad. prolonged qt. anterolateral changes still present but much improved. tele: sr cxr: cm. congestion. possible RLL infiltrate. echo 10/2016: nl lv/rv, no sig valve path mibi 10/2016: nl mpi, nl lvef.eg 77 yo with h/o cad (s/p mild mi 1990 per pt tx with cath/angioplasty), htn, hl, carotid dz s/p left cea 02/2017, ESRD s/p AV fisutula last month in anticipation of HD initiation, htn, hld, dm here with cp/nstemi. CP/nstemi/known cad - Initial EKG borderline tachycardic with new ekg changes (improved on follow up ekg after heart rate slowed). - 07/31: ACS protocol: asa, plavix, heparin, statin. nitroglycerin to keep patient cp free and sys bp < 140. Can add metoprolol tartrate 25 mg or 50 mg ( depending on bp) TID to maintain HR < 70. s/p lasix 120 mg x 1 today with good uop response. Would repeat dose tomorrow. Can use bipap if needed. - 08/01: ACS protocol, day 2 of heparin, con't. Echo today to assess EF and evaluate for ischemic MR. Will uptitrate lopressor for goal HR < 70. Begin weaning nitro drip. Addition of anti-anginal/anti-hypertensive depending on EF. Con't lasix 120 mg IV daily for pulmonary edema. - discussed recommendation for cardiac catheterization with patient and family. Patient states he would like to be dnr/dni. Counseled patient on the need to temporarily reverse dnr/dni jordy-procedure in order to get cardiac catheterization. However, patient currently declining. --> con't medical management of nstemi per patient preference. If EF is normal and no ischemic MR than not unreasonable to pursue conservative strategy. - HD initiation per renal and when stable from perspective of nstemi. htn - as above, goal sys < 140 Hl - con't statin s/p L CEA 02/2017 - no neurologic sx's. anti-platelets, statin as above ESRD s/p AV fistula last month in anticipation of HD initiation (not yet mature) - timing of HD intiation per renal. Currently no need for emergent HD. Recommend deferring for today until there is more information on clinical course. prolonged qt - appreciate renal input for electrolyte repletion, K > 4.0, mg > 2.0. - avoid qt prolonging drugs (PPI, zofran). Will d/c famotidine. - close tele monitoring. Repeat ekg in am.
[2017-08-01 11:20] LABS: BILIRUBIN,TOTAL 0.6 mg/dL (0.2-1.0); GLUCOSE,RANDOM 93 mg/dL (74-106); MAGNESIUM 2.1 mg/dL (1.8-2.4); PHOSPHOROUS 6.6 mg/dL (2.5-4.9); SGOT/AST 33 U/L (15-37); SGPT/ALT 21 U/L (12-78); TOT PROT 6.1 g/dl (6.4-8.2)
[2017-08-01] MEDS ORDERED: POTASSIUM CHLORIDE TABS 20 MEQ TABLET.ER (FP) PO ONE ×2 (11:25→13:30)
[2017-08-01] MEDS ORDERED: METOPROLOL TARTRATE 25 MG TABLET (FP) PO ONE (11:26)
--- NOTE | 2017-08-01 11:28 | PN ---
Progress Note, Physician History of Present Illness: Pt seen and examined at bedside. He is awake and alert. He denies chest pain or shortness of breath. - Current Medication List Current Medications: Active Medications Aspirin (Ecotrin -) 81 mg PO DAILY [facility] Last Admin: 08/01/17 10:00 Dose: 81 mg Atorvastatin Calcium (Lipitor -) 80 mg PO HS [facility] Last Admin: 07/31/17 21:49 Dose: 80 mg Clopidogrel Bisulfate (Plavix -) 75 mg PO DAILY [facility] Last Admin: 08/01/17 09:59 Dose: 75 mg Furosemide (Lasix Injection -) 120 mg IVPUSH DAILY [facility] Last Admin: 08/01/17 09:59 Dose: 120 mg Heparin Sodium (Porcine) (Heparin -) 1,000 unit IVPUSH PRN PRN PRN Reason: Heparin Last Admin: 08/01/17 10:03 Dose: 1,000 unit Heparin Sodium (Porcine) (Heparin -) 5,000 unit IVPUSH PRN PRN PRN Reason: Heparin Last Admin: 07/31/17 12:14 Dose: 5,000 unit Heparin Sodium/Dextrose (Heparin Infusion -) 500 mls @ 20 mls/hr IVPB TITR [facility]U ; 1,000 UNITS/HR PRN Reason: Protocol Last Admin: 07/31/17 12:00 Dose: 20 mls/hr Nitroglycerin/Dextrose (Nitroglycerin 25mg/D5w 250ml) 250 mls @ 6 mls/hr IVPB TITR [facility]U; 10 MCG/MIN PRN Reason: Protocol Last Admin: 07/31/17 15:50 Dose: 6 mls/hr Metoprolol Tartrate (Lopressor -) 25 mg PO TID [facility] Last Admin: 08/01/17 06:13 Dose: 25 mg Sodium Bicarbonate (Sodium Bicarbonate -) 650 mg PO TID [facility] Last Admin: 08/01/17 06:13 Dose: 650 mg - Objective Vital Signs: Vital Signs Temperature 99.0 F 08/01/17 10:00 Pulse Rate 80 08/01/17 10:00 Respiratory Rate 33 H 08/01/17 10:00 Blood Pressure 142/82 08/01/17 10:00 O2 Sat by Pulse Oximetry (%) 95 08/01/17 09:56 Constitutional: Yes: Calm Eyes: Yes: Conjunctiva Clear HENT: Yes: Atraumatic Neck: Yes: Supple Cardiovascular: Yes: S1, S2 Respiratory: Yes: On Nasal O2 Gastrointestinal: Yes: Soft Genitourinary: Yes: WNL Extremities: Yes: Other (right arm fistula with thrill and bruit) Edema: No Neurological: Yes: Oriented Psychiatric: Yes: Oriented Labs: CBC, BMP 08/01/17 05:00 08/01/17 05:00 INR, PTT INR 1.14 (0.82-1.09) 07/31/17 10:20 - ....Imaging Chest X-ray: Report Reviewed Problem List - Problems (1) ACS (acute coronary syndrome) Code(s): I24.9 - ACUTE ISCHEMIC HEART DISEASE, UNSPECIFIED (2) Diabetes Code(s): E11.9 - TYPE 2 DIABETES MELLITUS WITHOUT COMPLICATIONS Qualifiers: Diabetes mellitus type: type 2 Diabetes mellitus complication status: with kidney complications Diabetes mellitus complication detail: with chronic kidney disease Diabetes mellitus half-way insulin use: without superintendent terminal use Chronic kidney disease stage: stage 5, not on chronic dialysis Qualified Code(s): E11.22 - Type 2 diabetes mellitus with diabetic chronic kidney disease; E11.22 - Type 2 diabetes mellitus with diabetic chronic kidney disease; E11.22 - Type 2 diabetes mellitus with diabetic chronic kidney disease; E11.22 - Type 2 diabetes mellitus with diabetic chronic kidney disease; E11.22 - Type 2 diabetes mellitus with diabetic chronic kidney disease; N18.1 - Chronic kidney disease, stage 1; N18.1 - Chronic kidney disease, stage 1; Z79.4 - FPC (current) use of insulin; Z79.4 - extermination supervisor (current) use of insulin; Z79.4 - extermination supervisor (current) use of insulin; Z79.4 - FPC (current) use of insulin (3) Dyslipidemia Code(s): E78.5 - HYPERLIPIDEMIA, UNSPECIFIED (4) Hypertension Code(s): I10 - ESSENTIAL (PRIMARY) HYPERTENSION Qualifiers: Hypertension type: essential hypertension Qualified Code(s): I10 - Essential (primary) hypertension; I10 - Essential (primary) hypertension; I10 - Essential (primary) hypertension (5) Non-ST elevation PR (NSTEMI) Code(s): I21.4 - NON-ST ELEVATION (NSTEMI) MYOCARDIAL INFARCTION (6) CKD (chronic kidney disease) stage 5, 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 ml/min Code(s): N18.5 - CHRONIC KIDNEY DISEASE, STAGE 5 Assessment/Plan Current Medications Generic Name Dose Route Start Last Admin Trade Name Tru PRN Reason Stop Dose Admin Aspirin 81 mg 08/01/17 10:00 08/01/17 10:00 Ecotrin - PO 81 mg DAILY [facility] Administration Atorvastatin Calcium 80 mg 07/31/17 22:00 07/31/17 21:49 Lipitor - PO 80 mg HS [facility] Administration Clopidogrel Bisulfate 75 mg 08/01/17 10:00 08/01/17 09:59 Plavix - PO 75 mg DAILY [facility] Administration Furosemide 120 mg 08/01/17 10:00 08/01/17 09:59 Lasix Injection - IVPUSH 120 mg DAILY [facility] Administration Heparin Sodium (Porcine) 1,000 unit 07/31/17 11:47 08/01/17 10:03 Heparin - IVPUSH 1,000 unit PRN PRN Administration Heparin Heparin Sodium (Porcine) 5,000 unit 07/31/17 11:47 07/31/17 12:14 Heparin - IVPUSH 5,000 unit PRN PRN Administration Heparin Heparin Sodium/Dextrose 500 mls @ 20 mls/hr 07/31/17 12:00 07/31/17 12:00 Heparin Infusion - IVPB 20 mls/hr TITR [facility] Administration Protocol 1,000 UNITS/HR Nitroglycerin/Dextrose 250 mls @ 6 mls/hr 07/31/17 15:15 07/31/17 15:50 Nitroglycerin 25mg/D5w 250ml IVPB 6 mls/hr TITR [facility] Administration Protocol 10 MCG/MIN Metoprolol Tartrate 25 mg 07/31/17 22:00 08/01/17 06:13 Lopressor - PO 25 mg TID [facility] Administration Sodium Bicarbonate 650 mg 07/31/17 22:00 08/01/17 06:13 Sodium Bicarbonate - PO 650 mg TID [facility] Administration Impression 1. CKD 2. NSTEMI 3. HTN 4. hyperlipidemia 5. CAD Plan - will continue to monitor - no need for emergent HD - cardiology follow up - troponin continues to rise - discussed possibility of HD in the near future, will hold off until he stabilizes from a cardiac point of view - discussed with Dr Díaz as well - will follow Dr Roa
[2017-08-01 11:35] LABS: ALK PHOS 81 U/L (45-117); CPK 280 IU/L (39-308)
[2017-08-01 11:41] LABS: CREATININE 9.1 mg/dL (0.7-1.3); TROPONIN I 6.57 ng/ml (0.00-0.05)
--- NOTE | 2017-08-01 12:33 | PN ---
Teaching Attending Note Name of Resident: Bran Ayoub ATTENDING PHYSICIAN STATEMENT I saw and evaluated the patient. I reviewed the resident's note and discussed the case with the resident. I agree with the resident's findings and plan as documented. SUBJECTIVE: Pt seen and examined in the ICU. Remains on nitro gtt. Denies shortness of breath or chest pain but visibly tachypneic. OBJECTIVE: Last Vital Signs Temp Pulse Resp BP Pulse Ox 99.0 F 80 33 H 142/82 95 08/01/17 10:00 08/01/17 10:00 08/01/17 10:00 08/01/17 10:00 08/01/17 09:56 Intake & Output 07/29/17 07/30/17 07/31/17 08/01/17 23:59 23:59 23:59 23:59 Intake Total 168 312 Output Total 1300 400 Balance -1132 -88 Weight 152 lb 145 lb 4.554 oz Gen: mildly tachypneic at rest Heart: RRR Lung: decreased breath sounds at the bases Abd: soft, nontender Ext: no edema CBC, BMP 08/01/17 05:00 08/01/17 05:00 Active Medications Aspirin (Ecotrin -) 81 mg PO DAILY [facility] Last Admin: 08/01/17 10:00 Dose: 81 mg Atorvastatin Calcium (Lipitor -) 80 mg PO HS [facility] Last Admin: 07/31/17 21:49 Dose: 80 mg Clopidogrel Bisulfate (Plavix -) 75 mg PO DAILY [facility] Last Admin: 08/01/17 09:59 Dose: 75 mg Furosemide (Lasix Injection -) 120 mg IVPUSH DAILY [facility] Last Admin: 08/01/17 09:59 Dose: 120 mg Heparin Sodium (Porcine) (Heparin -) 1,000 unit IVPUSH PRN PRN PRN Reason: Heparin Last Admin: 08/01/17 10:03 Dose: 1,000 unit Heparin Sodium (Porcine) (Heparin -) 5,000 unit IVPUSH PRN PRN PRN Reason: Heparin Last Admin: 07/31/17 12:14 Dose: 5,000 unit Heparin Sodium/Dextrose (Heparin Infusion -) 500 mls @ 20 mls/hr IVPB TITR [facility] ; 1,000 UNITS/HR PRN Reason: Protocol Last Admin: 07/31/17 12:00 Dose: 20 mls/hr Nitroglycerin/Dextrose (Nitroglycerin 25mg/D5w 250ml) 250 mls @ 6 mls/hr IVPB TITR [facility]; 10 MCG/MIN PRN Reason: Protocol Last Admin: 07/31/17 15:50 Dose: 6 mls/hr Metoprolol Tartrate (Lopressor -) 50 mg PO TID [facility] Sodium Bicarbonate (Sodium Bicarbonate -) 650 mg PO TID [facility] Last Admin: 08/01/17 06:13 Dose: 650 mg ASSESSMENT AND PLAN: Acute NSTEMI Acute Pulmonary Edema Hypertensive Urgency CKD 5 DM - IV lasix - monitor urine output, creatinine - monitor CXR - resume home imdur - taper off nitro gtt - echocardiogram - trend cardiac enzymes to document peak - O2 to keep SpO2 >90% - discussed benefits of cardiac catheterization but pt continues to decline intervention - ASA, plavix - beta angelina, statin - heparin gtt per cardiology - HD per renal - continue ICU monitoring critical care time spent in reviewing chart, evaluating patient and formulating plan 35 min
--- NOTE | 2017-08-01 15:02 | PN ---
Physical Exam: SUBJECTIVE: 77 yo with h/o HTN, CAD s/p angioplasty 1990, HLD, s/p L carotid endaterectomy , ESRD s/p AV fisutula who presents with CP/NSTEMI. Patient with no complaints overnight. Patient hemodynamically stable and afebrile. Currently denies SOB, cough, pain, N/V, fevers/chills, dysuria, or urinary complaints. OBJECTIVE: Vital Signs Period Temp Pulse Resp BP Sys/Rausch Pulse Ox Last 24 Hr 99.0 F-100.4 F 78-88 20-33 133-153/74-90 95-99 GENERAL: The patient is awake, alert, and fully oriented, in no acute distress. HEAD: Normal with no signs of trauma. NECK: Trachea midline, full range of motion, supple. LUNGS: Breath sounds equal, clear to auscultation bilaterally, no wheezes, no crackles, no accessory muscle use. HEART: Regular rate and rhythm, S1, S2 without murmur, rub or gallop. ABDOMEN: Soft, nontender, nondistended, normoactive bowel sounds, no guarding, no rebound, no hepatosplenomegaly, no masses. EXTREMITIES: 2+ pulses, warm, well-perfused, no edema. PSYCH: Normal mood, normal affect. SKIN: Warm, dry, normal turgor, no rashes or lesions noted Laboratory Results - last 24 hr 07/31/17 07/31/17 08/01/17 17:54 17:54 01:00 WBC RBC Hgb Hct MCV MCH MCHC RDW Plt Count MPV Neutrophils % Lymphocytes % Monocytes % Eosinophils % Basophils % PTT (Actin FS) 55.3 H Sodium Potassium Chloride Carbon Dioxide Anion Gap BUN Creatinine Creat Clearance w eGFR Random Glucose Calcium Phosphorus Magnesium Total Bilirubin AST ALT Alkaline Phosphatase Creatine Kinase 259 292 Creatine Kinase Index 8.0 H* 5.4 H CK-MB (CK-2) 20.813 H 16.000 H Troponin I 5.11 H* D 6.94 H* D Total Protein Albumin 08/01/17 08/01/17 08/01/17 05:00 05:00 08:20 WBC 9.6 RBC 3.51 L Hgb 10.0 L Hct 30.2 L MCV 86.2 MCH 28.6 MCHC 33.2 RDW 15.4 Plt Count 212 MPV 9.0 Neutrophils % 79.9 Lymphocytes % 9.9 Monocytes % 9.4 Eosinophils % 0.6 Basophils % 0.2 PTT (Actin FS) 47.5 H Sodium 140 Potassium 3.5 Chloride 106 Carbon Dioxide 20 L Anion Gap 14 BUN 98 H Creatinine 9.1 H* Creat Clearance w eGFR 5.88 Random Glucose 93 D Calcium 7.9 L Phosphorus 6.6 H Magnesium 2.1 Total Bilirubin 0.6 AST 33 D ALT 21 Alkaline Phosphatase 81 Creatine Kinase 280 Creatine Kinase Index 4.8 CK-MB (CK-2) 13.712 H Troponin I 6.57 H* Total Protein 6.1 L Albumin 2.7 L Active Medications Generic Name Dose Route Start Last Admin Trade Name Freq PRN Reason Stop Dose Admin Aspirin 81 mg 08/01/17 10:00 08/01/17 10:00 Ecotrin - PO 81 mg DAILY [facility] Administration Atorvastatin Calcium 80 mg 07/31/17 22:00 07/31/17 21:49 Lipitor - PO 80 mg HS [facility] Administration Clopidogrel Bisulfate 75 mg 08/01/17 10:00 08/01/17 09:59 Plavix - PO 75 mg DAILY [facility] Administration Furosemide 120 mg 08/01/17 10:00 08/01/17 09:59 Lasix Injection - IVPUSH 120 mg DAILY [facility] Administration Heparin Sodium (Porcine) 1,000 unit 07/31/17 11:47 08/01/17 10:03 Heparin - IVPUSH 1,000 unit PRN PRN Administration Heparin Heparin Sodium (Porcine) 5,000 unit 07/31/17 11:47 07/31/17 12:14 Heparin - IVPUSH 5,000 unit PRN PRN Administration Heparin Heparin Sodium/Dextrose 500 mls @ 20 mls/hr 07/31/17 12:00 08/01/17 10:00 Heparin Infusion - IVPB 0.44 mls/hr TITR [facility] Administration Protocol 1,000 UNITS/HR Nitroglycerin/Dextrose 250 mls @ 6 mls/hr 07/31/17 15:15 07/31/17 15:50 Nitroglycerin 25mg/D5w 250ml IVPB 6 mls/hr TITR [facility] Administration Protocol 10 MCG/MIN Metoprolol Tartrate 50 mg 08/01/17 14:00 08/01/17 14:21 Lopressor - PO 50 mg TID [facility] Administration Sodium Bicarbonate 650 mg 07/31/17 22:00 08/01/17 14:20 Sodium Bicarbonate - PO 650 mg TID [facility] Administration ASSESSMENT/PLAN: 77 yo with h/o HTN, CAD s/p angioplasty 1990, HLD, s/p L carotid endaterectomy , ESRD s/p AV fisutula who presents with CP/NSTEMI. Cardiac: NSTEMI/Angina - ED EKG borderline revealed tachycardic with new ekg changes. - (07/31) Per ACS protocol started ASA, Statin, Heparin, Plavix. - S/p lasix 120 mg x 1 today with increased UOP. - Will uptitrate lopressor for goal HR < 70. Begin weaning nitro drip. Addition of anti-anginal/anti-hypertensive depending on EF. Con't lasix 120 mg IV daily for pulmonary edema. - Echo (08/01) Global hypokinesis - Patient continues to refuse cardiac catherization ( 08/01). States he would like to remain DNR/DNI. - Pt. was counseled on need to temporarily reverse DNR/DNI procedure in order to get cardiac catheterization,but patient continuously declines - Cont medical management of NSTEMI per patient preference. - HD initiation per renal and when stable from perspective of NSTEMI. Plan: -Cont lasix 120 mg IV QD for pulmonary edema. - Consider Metoprolol tartrate 25 mg - 50 mg TID to maintain HR < 70 - Bipap PRN - Echo HTN - Maintain SBP < 140 with Imdur HLD: Cont Statin ESRD s/p AV fistula 1 month ago - HD intiation per renal. - Currently non emergent HD. FEN: No IVF, Lytes PRN K > 4.0, mg > 2.0. , Dispo: Continue ICU Course Visit type - Emergency Visit Emergency Visit: Yes ED Registration Date: 07/31/17 Care time: The patient presented to the Emergency Department on the above date and was hospitalized for further evaluation of their emergent condition. - New Patient This patient is new to me today: Yes Date on this admission: 08/01/17 - Critical Care Critical Care patient: Yes Total Critical Care Time (in minutes): 35 Critical Care Statement: The care of this patient involved high complexity decision making to prevent further life threatening deterioration of the patient 's condition and/or to evaluate & treat vital organ system(s) failure or risk of failure.
--- NOTE | 2017-08-01 15:09 | EKG ---
Test Reason : Blood Pressure : / mmHG Vent. Rate : 076 BPM Atrial Rate : 076 BPM P-R Int : 138 ms QRS Dur : 104 ms QT Int : 454 ms P-R-T Axes : 025 -41 -55 degrees QTc Int : 510 ms NORMAL SINUS RHYTHM POSSIBLE LEFT ATRIAL ENLARGEMENT LEFT AXIS DEVIATION LEFT VENTRICULAR HYPERTROPHY WITH REPOLARIZATION ABNORMALITY PROLONGED QT ABNORMAL ECG WHEN COMPARED WITH ECG OF 31-JUL-2017 15:08, NO SIGNIFICANT CHANGE WAS FOUND Confirmed by RICH PALUMBO, SARA ([id number]) on 08/01/2017 3:09:04 PM Referred By: Confirmed By:ASRA VILLANUEVA MD
[2017-08-01] MEDS: ISOSORBIDE MONONITRATE 30 MG TAB.SR.24H (FP) PO SCH ×2 (17:09→21:41)
[2017-08-01] MEDS ORDERED: ACETAMINOPHEN 325 MG TABLET (FP) PO PRN (17:15)
[2017-08-01] MEDS: NITROGLYCERIN 25MG/D5W 250ML 250 ML IVPB SCH (18:29)
[2017-08-01 18:38] LABS: TROPONIN I 4.69 ng/ml (0.00-0.05)
[2017-08-01] MEDS: ATORVASTATIN CA 80 MG TABLET (FP) PO SCH (21:41)
[2017-08-01] MEDS: hydrALAZINE HCL 10 MG TABLET PO SCH (22:17)
[2017-08-02 06:09] LABS: BASOPHIL 0.5 % (0-2.0); EOSINOPHIL 4.7 % (0-4.5); MCH 28.9 pg (25.7-33.7); MCHC 33.9 g/dl (32.0-35.9); MEAN CELL VOLUME 85.5 fl (80-96); MEAN PLT VOLUME 9.2 fl (7.5-11.1); NEUTROPHILS 69.2 % (42.8-82.8); PLATELET COUNT 208 K/MM3 (134-434); RDW 15.2 % (11.9-15.9); WHITE BLOOD COUNT 7.8 K/mm3 (4.0-10.0)
[2017-08-02] MEDS: SODIUM BICARBONATE 650 MG TABLET PO SCH ×3 (06:30→21:18)
[2017-08-02] MEDS: METOPROLOL TARTRATE 25 MG TABLET (FP) PO SCH ×3 (06:30→21:17)
[2017-08-02 07:53] LABS: ANION GAP 19 (8-16); CALCIUM 7.6 mg/dL (8.5-10.1); CO2 20 mmol/L (21-32); GLUCOSE,RANDOM 116 mg/dL (74-106); MAGNESIUM 2.3 mg/dL (1.8-2.4); PHOSPHOROUS 8.3 mg/dL (2.5-4.9)
[2017-08-02] MEDS: HEPARIN NA (PORCINE) 5,000 UNITS/ML 1ML VIAL IVPUSH PRN (08:21)
[2017-08-02 08:26] LABS: CREATININE 9.6 mg/dL (0.7-1.3)
[2017-08-02] MEDS: FUROSEMIDE 40 MG/4 ML INJECTABLE VIAL IVPUSH SCH (09:08)
[2017-08-02] MEDS ORDERED: PT OWN MED DRAWER 7, Y5N ONE (09:18)
[2017-08-02] MEDS: ASPIRIN COATED 81 MG TABLET.EC PO SCH (09:20)
[2017-08-02] MEDS: CLOPIDOGREL BISULFATE 75 MG TABLET (FP) PO SCH (09:20)
[2017-08-02] MEDS: ISOSORBIDE MONONITRATE 30 MG TAB.SR.24H (FP) PO SCH ×2 (09:21→21:18)
[2017-08-02] MEDS: hydrALAZINE HCL 10 MG TABLET PO SCH ×2 (09:21→21:18)
[2017-08-02] MEDS ORDERED: POTASSIUM CHLORIDE TABS 20 MEQ TABLET.ER (FP) PO ONE (10:00)
--- NOTE | 2017-08-02 11:00 | PN ---
Progress Note, Physician Chief Complaint: Mr Araya is without complaint. No cp, sob, n/v. Says he is feeling fine. - Current Medication List Current Medications: Active Medications Acetaminophen (Tylenol -) 325 mg PO Q4H PRN PRN Reason: FEVER OR PAIN Aspirin (Ecotrin -) 81 mg PO DAILY [facility] Last Admin: 08/02/17 09:20 Dose: 81 mg Atorvastatin Calcium (Lipitor -) 80 mg PO HS [facility] Last Admin: 08/01/17 21:41 Dose: 80 mg Clopidogrel Bisulfate (Plavix -) 75 mg PO DAILY [facility] Last Admin: 08/02/17 09:20 Dose: 75 mg Furosemide (Lasix Injection -) 120 mg IVPUSH DAILY [facility] Last Admin: 08/02/17 09:08 Dose: 120 mg Heparin Sodium (Porcine) (Heparin -) 1,000 unit IVPUSH PRN PRN PRN Reason: Heparin Last Admin: 08/02/17 08:21 Dose: 1,000 unit Heparin Sodium (Porcine) (Heparin -) 5,000 unit IVPUSH PRN PRN PRN Reason: Heparin Last Admin: 07/31/17 12:14 Dose: 5,000 unit Hydralazine HCl (Apresoline -) 10 mg PO BID [facility] Last Admin: 08/02/17 09:21 Dose: 10 mg Heparin Sodium/Dextrose (Heparin Infusion -) 500 mls @ 20 mls/hr IVPB TITR [facility] ; 1,000 UNITS/HR PRN Reason: Protocol Last Titration: 08/02/17 08:11 Dose: 24 units/hr Nitroglycerin/Dextrose (Nitroglycerin 25mg/D5w 250ml) 250 mls @ 6 mls/hr IVPB TITR [facility]; 10 MCG/MIN PRN Reason: Protocol Last Admin: 08/01/17 18:29 Dose: Not Given Isosorbide Mononitrate (Imdur -) 30 mg PO BID [facility] Last Admin: 08/02/17 09:21 Dose: 30 mg Metoprolol Tartrate (Lopressor -) 50 mg PO TID [facility] Last Admin: 08/02/17 06:30 Dose: 50 mg Sodium Bicarbonate (Sodium Bicarbonate -) 650 mg PO TID [facility] Last Admin: 08/02/17 06:30 Dose: 650 mg - Objective Vital Signs: Vital Signs Temperature 36.9 C 08/02/17 08:00 Pulse Rate 68 08/02/17 08:00 Respiratory Rate 20 08/02/17 06:00 Blood Pressure 143/79 08/02/17 08:00 O2 Sat by Pulse Oximetry (%) 100 08/02/17 10:17 Constitutional: Yes: Well Nourished, No Distress, Calm Cardiovascular: Yes: Regular Rate and Rhythm. No: Gallop, Murmur, Rub Respiratory: Yes: Regular, CTA Bilaterally. No: Rales, Rhonchi, Wheezes Gastrointestinal: Yes: Normal Bowel Sounds, Soft. No: Distention, Tenderness Extremities: Yes: WNL Edema: No Labs: CBC, BMP 08/02/17 05:00 08/02/17 05:00 INR, PTT INR 1.14 (0.82-1.09) 07/31/17 10:20 Problem List - Problems (1) Non-ST elevation NC (NSTEMI) Assessment/Plan: -being followed by cardiology and trending troponin -patient does not want cardiac catheterization at this time -continue medical management including aspirin, plavix, lipitor, metoprolol, imdur, and heparin gtt -defer to cardiology when can safely stop heparin gtt Code(s): I21.4 - NON-ST ELEVATION (NSTEMI) MYOCARDIAL INFARCTION (2) End stage chronic kidney disease Assessment/Plan: -nephrology following -no emergent need for HD pending medical treatment of NSTEMI -continue sodium bicarbonate Code(s): N18.6 - END STAGE RENAL DISEASE Z99.2 - DEPENDENCE ON RENAL DIALYSIS (3) Diabetes Assessment/Plan: -continue diabetic diet Code(s): E11.9 - TYPE 2 DIABETES MELLITUS WITHOUT COMPLICATIONS Qualifiers: Diabetes mellitus type: type 2 Diabetes mellitus complication status: with kidney complications Diabetes mellitus complication detail: with chronic kidney disease Diabetes mellitus termite treater helper insulin use: without termite treater helper use Chronic kidney disease stage: stage 5, not on chronic dialysis Qualified Code(s): E11.22 - Type 2 diabetes mellitus with diabetic chronic kidney disease; E11.22 - Type 2 diabetes mellitus with diabetic chronic kidney disease; E11.22 - Type 2 diabetes mellitus with diabetic chronic kidney disease; E11.22 - Type 2 diabetes mellitus with diabetic chronic kidney disease; E11.22 - Type 2 diabetes mellitus with diabetic chronic kidney disease; N18.1 - Chronic kidney disease, stage 1; N18.1 - Chronic kidney disease, stage 1; Z79.4 - residential (current) use of insulin; Z79.4 - watermelon inspector (current) use of insulin; Z79.4 - watermelon inspector (current) use of insulin; Z79.4 - residential (current) use of insulin (4) Hypertension Assessment/Plan: -controlled -continue hydralazine -continue metoprolol and imdur -on IV lasix Code(s): I10 - ESSENTIAL (PRIMARY) HYPERTENSION Qualifiers: Hypertension type: essential hypertension Qualified Code(s): I10 - Essential (primary) hypertension; I10 - Essential (primary) hypertension; I10 - Essential (primary) hypertension (5) CHF (congestive heart failure) Assessment/Plan: -secondary to NSTEMI/ACS -ECHO showing systolic dysfunction -treating underlying ACS -continue IV lasix Code(s): I50.9 - HEART FAILURE, UNSPECIFIED Qualifiers: Congestive heart failure type: systolic Congestive heart failure chronicity: acute Qualified Code(s): I50.21 - Acute systolic (congestive ) heart failure; I50.21 - Acute systolic (congestive) heart failure; I50.21 - Acute systolic (congestive) heart failure; I50.21 - Acute systolic (congestive) heart failure
[2017-08-02 11:01] LABS: TROPONIN I 3.83 ng/ml (0.00-0.05)
--- NOTE | 2017-08-02 12:05 | PN ---
Teaching Attending Note Name of Resident: Bran Ayoub ATTENDING PHYSICIAN STATEMENT I saw and evaluated the patient. I reviewed the resident's note and discussed the case with the resident. I agree with the resident's findings and plan as documented. SUBJECTIVE: Pt seen and examined in the ICU. Denies shortness of breath or chest pain. No fevers or chills. Good urine output. OBJECTIVE: Last Vital Signs Temp Pulse Resp BP Pulse Ox 97.8 F 70 20 133/75 100 08/02/17 10:00 08/02/17 10:00 08/02/17 10:00 08/02/17 10:00 08/02/17 10:17 Intake & Output 07/30/17 07/31/17 08/01/17 08/02/17 23:59 23:59 23:59 23:59 Intake Total 168 1282 504 Output Total 1300 1925 1200 Balance -1132 -643 -696 Weight 152 lb 145 lb 4.554 oz 143 lb 1.28 oz Gen: less tachypneic Heart: RRR Lung: decreased breath sounds at the bases Abd: soft, nontender Ext: no edema CBC, BMP 08/02/17 05:00 08/02/17 05:00 Active Medications Acetaminophen (Tylenol -) 325 mg PO Q4H PRN PRN Reason: FEVER OR PAIN Aspirin (Ecotrin -) 81 mg PO DAILY [facility] Last Admin: 08/02/17 09:20 Dose: 81 mg Atorvastatin Calcium (Lipitor -) 80 mg PO HS [facility] Last Admin: 08/01/17 21:41 Dose: 80 mg Clopidogrel Bisulfate (Plavix -) 75 mg PO DAILY [facility] Last Admin: 08/02/17 09:20 Dose: 75 mg Furosemide (Lasix Injection -) 120 mg IVPUSH DAILY [facility] Last Admin: 08/02/17 09:08 Dose: 120 mg Heparin Sodium (Porcine) (Heparin -) 1,000 unit IVPUSH PRN PRN PRN Reason: Heparin Last Admin: 08/02/17 08:21 Dose: 1,000 unit Heparin Sodium (Porcine) (Heparin -) 5,000 unit IVPUSH PRN PRN PRN Reason: Heparin Last Admin: 07/31/17 12:14 Dose: 5,000 unit Hydralazine HCl (Apresoline -) 10 mg PO BID [facility] Last Admin: 08/02/17 09:21 Dose: 10 mg Heparin Sodium/Dextrose (Heparin Infusion -) 500 mls @ 20 mls/hr IVPB TITR [facility] ; 1,000 UNITS/HR PRN Reason: Protocol Last Titration: 08/02/17 08:11 Dose: 24 units/hr Isosorbide Mononitrate (Imdur -) 30 mg PO BID [facility] Last Admin: 08/02/17 09:21 Dose: 30 mg Metoprolol Tartrate (Lopressor -) 50 mg PO TID [facility] Last Admin: 08/02/17 06:30 Dose: 50 mg Sodium Bicarbonate (Sodium Bicarbonate -) 650 mg PO TID [facility] Last Admin: 08/02/17 06:30 Dose: 650 mg ASSESSMENT AND PLAN: Acute NSTEMI Acute Pulmonary Edema Hypertensive Urgency Acute on CKD 5 DM - continue IV lasix - monitor urine output, creatinine - monitor CXR - monitoring off antibiotics as pt afebrile with normal WBC - O2 to keep SpO2 >90% - discussed benefits of cardiac catheterization but pt continues to decline intervention - ASA, plavix - beta angelina, statin - heparin gtt per cardiology - HD per renal - can monitor on telemetry critical care time spent in reviewing chart, evaluating patient and formulating plan 35 min
[2017-08-02] MEDS ORDERED: NITROGLYCERIN SUBLINGUAL 1/150 0.4 MG TAB SL ONE (12:21)
[2017-08-02] MEDS ORDERED: HEMOQUE TEST 1 EACH EACH ONE (12:22)
[2017-08-02] MEDS: HEPARIN INFUSION - 500 ML IVPB SCH (12:45)
--- NOTE | 2017-08-02 13:00 | PN ---
Physical Exam: SUBJECTIVE: 77 yo with h/o HTN, CAD s/p angioplasty 1990, HLD, s/p L carotid endaterectomy , ESRD s/p AV fisutula who presents with CP/NSTEMI. Patient with no acute events overnight. Patient hemodynamically stable and afebrile. He endorses extremity cramping this morning and last night. Currently denies SOB, lightheadedness, cough, pain, N/V, fevers/chills, dysuria, or urinary complaints. Maintaining adequate urinary output. OBJECTIVE: Vital Signs Period Temp Pulse Resp BP Sys/Rausch Pulse Ox Last 24 Hr 97.6 F-98.8 F 66-80 17-22 78-155/56-86 93-100 GENERAL: The patient is awake, alert, and fully oriented, in no acute distress. HEAD: Normal with no signs of trauma. NECK: Trachea midline, full range of motion, supple. LUNGS: Minimal bibasilar rales with normal respiratory effort, no wheezes, no accessory muscle use. HEART: Regular rate and rhythm, S1, S2 without murmur, rub or gallop. ABDOMEN: Soft, nontender, nondistended, normoactive bowel sounds, no guarding, no rebound, no hepatosplenomegaly, no masses. EXTREMITIES: 2+ pulses, warm, well-perfused, no edema. PSYCH: Normal mood, normal affect. SKIN: Warm, dry, normal turgor, no rashes or lesions noted Laboratory Results - last 24 hr 08/01/17 08/01/17 08/02/17 15:30 16:00 05:00 WBC RBC Hgb Hct MCV MCH MCHC RDW Plt Count MPV Neutrophils % Lymphocytes % Monocytes % Eosinophils % Basophils % PTT (Actin FS) 56.5 H 45.1 H Sodium Potassium Chloride Carbon Dioxide Anion Gap BUN Creatinine Random Glucose Lactic Acid Calcium Phosphorus Magnesium Creatine Kinase 280 Creatine Kinase Index 3.9 CK-MB (CK-2) 11.043 H Troponin I 4.69 H* 08/02/17 08/02/17 08/02/17 05:00 05:00 09:45 WBC 7.8 RBC 3.36 L Hgb 9.7 L Hct 28.7 L MCV 85.5 MCH 28.9 MCHC 33.9 RDW 15.2 Plt Count 208 MPV 9.2 Neutrophils % 69.2 Lymphocytes % 16.1 D Monocytes % 9.5 Eosinophils % 4.7 H D Basophils % 0.5 PTT (Actin FS) Sodium 137 Potassium 3.3 L Chloride 98 Carbon Dioxide 20 L Anion Gap 19 H BUN 114 H* Creatinine 9.6 H* Random Glucose 116 H D Lactic Acid 1.1 Calcium 7.6 L Phosphorus 8.3 H D Magnesium 2.3 Creatine Kinase Creatine Kinase Index CK-MB (CK-2) Troponin I 08/02/17 09:45 WBC RBC Hgb Hct MCV MCH MCHC RDW Plt Count MPV Neutrophils % Lymphocytes % Monocytes % Eosinophils % Basophils % PTT (Actin FS) Sodium Potassium Chloride Carbon Dioxide Anion Gap BUN Creatinine Random Glucose Lactic Acid Calcium Phosphorus Magnesium Creatine Kinase 240 Creatine Kinase Index 3.2 CK-MB (CK-2) 7.723 H Troponin I 3.83 H* Active Medications Generic Name Dose Route Start Last Admin Trade Name Freq PRN Reason Stop Dose Admin Acetaminophen 325 mg 08/01/17 17:15 Tylenol - PO Q4H PRN FEVER OR PAIN Aspirin 81 mg 08/01/17 10:00 08/02/17 09:20 Ecotrin - PO 81 mg DAILY [facility]U Administration Atorvastatin Calcium 80 mg 07/31/17 22:00 08/01/17 21:41 Lipitor - PO 80 mg HS MAU Administration Clopidogrel Bisulfate 75 mg 08/01/17 10:00 08/02/17 09:20 Plavix - PO 75 mg DAILY MAU Administration Furosemide 120 mg 08/01/17 10:00 08/02/17 09:08 Lasix Injection - IVPUSH 120 mg DAILY MAU Administration Heparin Sodium (Porcine) 1,000 unit 07/31/17 11:47 08/02/17 08:21 Heparin - IVPUSH 1,000 unit PRN PRN Administration Heparin Heparin Sodium (Porcine) 5,000 unit 07/31/17 11:47 07/31/17 12:14 Heparin - IVPUSH 5,000 unit PRN PRN Administration Heparin Hydralazine HCl 10 mg 08/01/17 22:00 08/02/17 09:21 Apresoline - PO 10 mg BID MAU Administration Heparin Sodium/Dextrose 500 mls @ 20 mls/hr 07/31/17 12:00 08/02/17 12:45 Heparin Infusion - IVPB 0.48 mls/hr TITR MAU Administration Protocol 1,000 UNITS/HR Isosorbide Mononitrate 30 mg 08/01/17 15:15 08/02/17 09:21 Imdur - PO 30 mg BID MAU Administration Metoprolol Tartrate 50 mg 08/01/17 14:00 08/02/17 06:30 Lopressor - PO 50 mg TID MAU Administration Sodium Bicarbonate 650 mg 07/31/17 22:00 08/02/17 06:30 Sodium Bicarbonate - PO 650 mg TID MAU Administration ASSESSMENT/PLAN: 77 yo with h/o HTN, CAD s/p angioplasty 1990, HLD, s/p L carotid endaterectomy , ESRD s/p AV fisutula who presents with CP/NSTEMI. Cardiac: NSTEMI/Angina - ED EKG borderline revealed tachycardic with new ekg changes. - (07/31) Per ACS protocol started ASA, Statin, Heparin, Plavix. - S/p lasix 120 mg x 1 today with increased UOP. - Will titrate lopressor for goal HR < 70. - Echo (08/01) Global hypokinesis - Patient continues to refuse cardiac catherization ( 08/01). States he would like to remain DNR/DNI. - Pt. was counseled on need to temporarily reverse DNR/DNI procedure in order to get cardiac catheterization,but patient continuously declines - Cont medical management of NSTEMI per patient preference. - HD initiation per renal and when stable from perspective of NSTEMI. Plan: -Cont lasix 120 mg IV QD for pulmonary edema. - Cont Metoprolol 50 mg TID to maintain HR < 70 - Bipap PRN - Echo - D/c Nitro gtt - Trend trop HTN - Maintain SBP < 140 with Imdur - Cont Metoprolol - Cont Hydralazine - IV lasix HLD: Cont Statin Nephrology: ESRD s/p AV fistula 1 month ago - HD intiation per renal. - Currently non emergent HD. - Sodium Bicarbonate FEN: No IVF, Lytes PRN K > 4.0, mg > 2.0. PPx: Heparin 5000 U Dispo: Transfer to Telemetry Visit type - Emergency Visit Emergency Visit: Yes ED Registration Date: 07/31/17 Care time: The patient presented to the Emergency Department on the above date and was hospitalized for further evaluation of their emergent condition. - New Patient This patient is new to me today: No - Critical Care Critical Care patient: Yes Total Critical Care Time (in minutes): 30 Critical Care Statement: The care of this patient involved high complexity decision making to prevent further life threatening deterioration of the patient 's condition and/or to evaluate & treat vital organ system(s) failure or risk of failure.
[2017-08-02] MEDS ORDERED: HEPARIN INFUSION - 500 ML IVPB SCH (14:00)
[2017-08-02] MEDS ORDERED: HEPARIN NA (PORCINE) 5,000 UNITS/ML 1ML VIAL IVPUSH PRN ×3 (14:00)
[2017-08-02] MEDS ORDERED: ACETAMINOPHEN 325 MG TABLET (FP) PO PRN (14:00)
--- NOTE | 2017-08-02 15:48 | PN ---
Progress Note, Physician History of Present Illness: Pt seen and examined at bedside. He is more drowsy today than yesterday. He has poor appetite. - Current Medication List Current Medications: Active Medications Acetaminophen (Tylenol -) 325 mg PO Q4H PRN PRN Reason: FEVER OR PAIN Aspirin (Ecotrin -) 81 mg PO DAILY [facility]U Atorvastatin Calcium (Lipitor -) 80 mg PO HS MAU Clopidogrel Bisulfate (Plavix -) 75 mg PO DAILY [facility]U Furosemide (Lasix Injection -) 120 mg IVPUSH DAILY MAU Heparin Sodium (Porcine) (Heparin -) 5,000 unit IVPUSH PRN PRN PRN Reason: Heparin Heparin Sodium (Porcine) (Heparin -) 1,000 unit IVPUSH PRN PRN PRN Reason: Heparin Heparin Sodium (Porcine) (Heparin -) 5,000 unit IVPUSH PRN PRN PRN Reason: Heparin Hydralazine HCl (Apresoline -) 10 mg PO BID MAU Heparin Sodium/Dextrose (Heparin Infusion -) 500 mls @ 20 mls/hr IVPB TITR MAU ; 1,000 UNITS/HR PRN Reason: Protocol Isosorbide Mononitrate (Imdur -) 30 mg PO BID MAU Metoprolol Tartrate (Lopressor -) 50 mg PO TID MAU Sodium Bicarbonate (Sodium Bicarbonate -) 650 mg PO TID MAU - Objective Vital Signs: Vital Signs Temperature 98.5 F 08/02/17 14:16 Pulse Rate 68 08/02/17 14:16 Respiratory Rate 16 08/02/17 14:16 Blood Pressure 139/71 08/02/17 14:16 O2 Sat by Pulse Oximetry (%) 100 08/02/17 10:17 Constitutional: Yes: Calm Eyes: Yes: Conjunctiva Clear HENT: Yes: Atraumatic Cardiovascular: Yes: S1, S2 Respiratory: Yes: On Nasal O2 Gastrointestinal: Yes: Soft Genitourinary: Yes: WNL Musculoskeletal: Yes: WNL Edema: No Neurological: Yes: Oriented Psychiatric: Yes: Oriented Labs: CBC, BMP 08/02/17 05:00 08/02/17 05:00 INR, PTT INR 1.14 (0.82-1.09) 07/31/17 10:20 Problem List - Problems (1) ACS (acute coronary syndrome) Code(s): I24.9 - ACUTE ISCHEMIC HEART DISEASE, UNSPECIFIED (2) Diabetes Code(s): E11.9 - TYPE 2 DIABETES MELLITUS WITHOUT COMPLICATIONS Qualifiers: Diabetes mellitus type: type 2 Diabetes mellitus complication status: with kidney complications Diabetes mellitus complication detail: with chronic kidney disease Diabetes mellitus longterm insulin use: without termite technician use Chronic kidney disease stage: stage 5, not on chronic dialysis Qualified Code(s): E11.22 - Type 2 diabetes mellitus with diabetic chronic kidney disease; E11.22 - Type 2 diabetes mellitus with diabetic chronic kidney disease; E11.22 - Type 2 diabetes mellitus with diabetic chronic kidney disease; E11.22 - Type 2 diabetes mellitus with diabetic chronic kidney disease; E11.22 - Type 2 diabetes mellitus with diabetic chronic kidney disease; N18.1 - Chronic kidney disease, stage 1; N18.1 - Chronic kidney disease, stage 1; Z79.4 - termite treater (current) use of insulin; Z79.4 - termite treater (current) use of insulin; Z79.4 - termite treater (current) use of insulin; Z79.4 - FPC (current) use of insulin (3) Dyslipidemia Code(s): E78.5 - HYPERLIPIDEMIA, UNSPECIFIED (4) Hypertension Code(s): I10 - ESSENTIAL (PRIMARY) HYPERTENSION Qualifiers: Hypertension type: essential hypertension Qualified Code(s): I10 - Essential (primary) hypertension; I10 - Essential (primary) hypertension; I10 - Essential (primary) hypertension (5) Non-ST elevation [place] (NSTEMI) Code(s): I21.4 - NON-ST ELEVATION (NSTEMI) MYOCARDIAL INFARCTION (6) CKD (chronic kidney disease) stage 5, 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 ml/min Code(s): N18.5 - CHRONIC KIDNEY DISEASE, STAGE 5 Assessment/Plan Current Medications Generic Name Dose Route Start Last Admin Trade Name Freq PRN Reason Stop Dose Admin Acetaminophen 325 mg 08/02/17 14:00 Tylenol - PO Q4H PRN FEVER OR PAIN Aspirin 81 mg 08/03/17 10:00 Ecotrin - PO DAILY [facility] Atorvastatin Calcium 80 mg 08/02/17 22:00 Lipitor - PO HS MAU Clopidogrel Bisulfate 75 mg 08/03/17 10:00 Plavix - PO DAILY [facility] Furosemide 120 mg 08/03/17 10:00 Lasix Injection - IVPUSH DAILY [facility] Heparin Sodium (Porcine) 5,000 unit 08/02/17 14:00 Heparin - IVPUSH PRN PRN Heparin Heparin Sodium (Porcine) 1,000 unit 08/02/17 14:00 Heparin - IVPUSH PRN PRN Heparin Heparin Sodium (Porcine) 5,000 unit 08/02/17 14:00 Heparin - IVPUSH PRN PRN Heparin Hydralazine HCl 10 mg 08/02/17 22:00 Apresoline - PO BID MAU Heparin Sodium/Dextrose 500 mls @ 20 mls/hr 08/02/17 14:00 08/02/17 15:46 Heparin Infusion - IVPB Not Given TITR [facility] Protocol 1,000 UNITS/HR Isosorbide Mononitrate 30 mg 08/02/17 22:00 Imdur - PO BID MAU Metoprolol Tartrate 50 mg 08/02/17 14:00 08/02/17 15:41 Lopressor - PO 50 mg TID MAU Administration Sodium Bicarbonate 650 mg 08/02/17 14:00 08/02/17 15:42 Sodium Bicarbonate - PO 650 mg TID MAU Administration Impression 1. CKD 2. NSTEMI 3. HTN 4. hyperlipidemia 5. CAD Plan - renal function is worse today - discussed HD with pt and family - called vascular surgery for access - will likely start HD tomorrow - ptis refusing cardiac cath - monitor troponin level - discussed with Dr Díaz - will follow Dr Roa
--- NOTE | 2017-08-02 16:14 | PN ---
Progress Note (short form) - Note Progress Note: CC: CP/nstemi S: No recurrence of chest discomfort. no sob, is comfortable and out of bed to chair. no palps, dizziness. Current Medications Acetaminophen (Tylenol -) 325 mg PO Q4H PRN PRN Reason: FEVER OR PAIN Aspirin (Ecotrin -) 81 mg PO DAILY [facility] Atorvastatin Calcium (Lipitor -) 80 mg PO HS MAU Clopidogrel Bisulfate (Plavix -) 75 mg PO DAILY MAU Furosemide (Lasix Injection -) 120 mg IVPUSH DAILY MAU Heparin Sodium (Porcine) (Heparin -) 5,000 unit IVPUSH PRN PRN PRN Reason: Heparin Heparin Sodium (Porcine) (Heparin -) 1,000 unit IVPUSH PRN PRN PRN Reason: Heparin Heparin Sodium (Porcine) (Heparin -) 5,000 unit IVPUSH PRN PRN PRN Reason: Heparin Hydralazine HCl (Apresoline -) 10 mg PO BID [facility] Heparin Sodium/Dextrose (Heparin Infusion -) 500 mls @ 20 mls/hr IVPB TITR MAU ; 1,000 UNITS/HR PRN Reason: Protocol Last Admin: 08/02/17 15:46 Dose: Not Given Isosorbide Mononitrate (Imdur -) 30 mg PO BID [facility] Metoprolol Tartrate (Lopressor -) 50 mg PO TID [facility] Last Admin: 08/02/17 15:41 Dose: 50 mg Sodium Bicarbonate (Sodium Bicarbonate -) 650 mg PO TID [facility] Last Admin: 08/02/17 15:42 Dose: 650 mg Vital Signs - 24 hr 08/01/17 08/01/17 08/01/17 18:00 20:00 20:53 Temperature Pulse Rate 72 80 Respiratory 20 18 18 Rate Blood Pressure 142/78 145/86 O2 Sat by Pulse 95 Oximetry (%) 08/01/17 08/02/17 08/02/17 22:00 00:00 02:10 Temperature 98.8 F 98.6 F Pulse Rate 74 66 68 Respiratory 18 17 22 Rate Blood Pressure 155/82 132/71 114/61 O2 Sat by Pulse Oximetry (%) 08/02/17 08/02/17 08/02/17 04:00 06:00 08:00 Temperature 97.6 F 98.5 F Pulse Rate 70 72 68 Respiratory 18 20 Rate Blood Pressure 124/68 124/70 143/79 O2 Sat by Pulse Oximetry (%) 08/02/17 08/02/17 08/02/17 08:58 10:00 : Temperature 97.8 F Pulse Rate 70 Respiratory 20 Rate Blood Pressure 133/75 O2 Sat by Pulse 93 L 100 Oximetry (%) Intake & Output 07/31/17 08/01/17 08/02/17 08/03/17 07:59 07:59 07:59 07:59 Intake Total 480 1234 240 Output Total 1700 2425 950 Balance -1220 -1191 -710 Weight 145 lb 4.554 oz 143 lb 1.28 oz nad, calm jvd increased, neck supple trace bibasilar rales, nl effort rrr nl s1, s2. no mrg. displaced pmi + bs soft nt nd ext without e/c/c diminished dp/pt no carotid bruit aaox3 no jaundice, diaphoresis. CBC, BMP 08/02/17 05:00 08/02/17 05:00 EKG 07/31 #1: nsr, 99 bpm. lad. prolonged qt. New downsloping STD in the anterolateral leads. EKG 07/31 #2: nsr, 85 bpm. lad. prolonged qt. anterolateral changes still present but much improved. tele: sr cxr: cm. congestion. possible RLL infiltrate. echo 10/2016: nl lv/rv, no sig valve path mibi 10/2016: nl mpi, nl lvef.eg 77 yo with h/o cad (s/p mild mi 1990 per pt tx with cath/angioplasty), htn, hl, carotid dz s/p left cea 02/2017, ESRD s/p AV fisutula last month in anticipation of HD initiation, htn, hld, dm here with cp/nstemi. CP/nstemi/known cad - Initial EKG borderline tachycardic with new ekg changes (improved on follow up ekg after heart rate slowed). - 07/31: ACS protocol: asa, plavix, heparin, statin. nitroglycerin to keep patient cp free and sys bp < 140. Can add metoprolol tartrate 25 mg or 50 mg ( depending on bp) TID to maintain HR < 70. s/p lasix 120 mg x 1 today with good uop response. Would repeat dose tomorrow. Can use bipap if needed. - 08/01: ACS protocol, day 2 of heparin, con't. Echo today to assess EF and evaluate for ischemic MR. Will uptitrate lopressor for goal HR < 70. Begin weaning nitro drip. Addition of anti-anginal/anti-hypertensive depending on EF. Con't lasix 120 mg IV daily for pulmonary edema. - discussed recommendation for cardiac catheterization with patient and family. Patient states he would like to be dnr/dni. Counseled patient on the need to temporarily reverse dnr/dni jordy-procedure in order to get cardiac catheterization and patient declining. --> con't medical management of nstemi per patient preference. If EF is normal and no ischemic MR than not unreasonable to pursue conservative strategy. - 08/02: ACS protocol continues with heparin and dapt. Pt remains cp free. Echo with only mild LV dysfunction, no significant MR. Pursuing medical mgm't of nstemi per patient preference. Discussed timing of HD initiation with renal. From CV perspective, will be high risk but patient with need for HD. Would recommend completing 72 hours of heparin drip if possible (to be d/c tomorrow at noon). Can go for permacath afterwards. If procedure needs to be done sooner, reasonable to stop heparin drip sooner (already s/p 48 hours). htn - con't current regimen, HR/bp reasonable overall control on metoprolol, imdur , hydralazine. Hl - con't statin s/p L CEA 02/2017 - no neurologic sx's. anti-platelets, statin as above ESRD s/p AV fistula last month in anticipation of HD initiation (not yet mature) - timing of HD intiation per renal as discussed above. prolonged qt - appreciate renal input for electrolyte repletion, K > 4.0, mg > 2.0. - avoid qt prolonging drugs (PPI, zofran). Will d/c famotidine. - close tele monitoring. Repeat ekg in am to reassess qt prior to anesthesia.
--- NOTE | 2017-08-02 19:02 | PN ---
Progress Note (short form) - Note Progress Note: Temporary dialysis catheter requested by Dr. Roa. Patient currently on Heparin drip. i will arrange for catheter placement in the morning after holding drip.
[2017-08-02] MEDS: ATORVASTATIN CA 80 MG TABLET (FP) PO SCH (21:18)
--- NOTE | 2017-08-02 21:52 | EKG ---
Test Reason : Blood Pressure : / mmHG Vent. Rate : 069 BPM Atrial Rate : 069 BPM P-R Int : 140 ms QRS Dur : 094 ms QT Int : 468 ms P-R-T Axes : 270 -49 -73 degrees QTc Int : 501 ms UNUSUAL P AXIS, POSSIBLE ECTOPIC ATRIAL RHYTHM , PROBABLE INTERMITTENT ATRIAL PACING LEFT ANTERIOR FASCICULAR BLOCK LEFT VENTRICULAR HYPERTROPHY WITH REPOLARIZATION ABNORMALITY PROLONGED QT ABNORMAL ECG WHEN COMPARED WITH ECG OF 02-AUG-2017 08:54, ECTOPIC ATRIAL RHYTHM HAS REPLACED SINUS RHYTHM CLINICAL CORRELATION IS RECOMMENDED Confirmed by MEGHANA LOREDO MD ([id number]) on 08/02/2017 9:51:55 PM Referred By: CARMEN MARIA DR Confirmed By:MEGHANA LOREDO MD
[2017-08-03] MEDS: SODIUM BICARBONATE 650 MG TABLET PO SCH (05:24)
[2017-08-03] MEDS: METOPROLOL TARTRATE 25 MG TABLET (FP) PO SCH ×3 (05:24→21:33)
[2017-08-03 06:42] LABS: BASOPHIL 0.4 % (0-2.0); EOSINOPHIL 5.2 % (0-4.5); MCH 28.7 pg (25.7-33.7); MEAN CELL VOLUME 84.4 fl (80-96); MEAN PLT VOLUME 9.1 fl (7.5-11.1); NEUTROPHILS 64.3 % (42.8-82.8); PLATELET COUNT 224 K/MM3 (134-434)
--- NOTE | 2017-08-03 08:41 | PROC ---
Central Line Insertion Indication: Other (Dialysis access) Risks and Benefits Explained: Yes Consent on Chart: Yes Central Line: Dialysis Cath, Dual Lumen Anesthesia: 1% Lidocaine Sterile Technique: Yes Ultrasound Guided Assistance: No Position: Right Femoral Sterile Dressing Applied: Yes
[2017-08-03 09:22] LABS: ANION GAP 19 (8-16); CALCIUM 7.7 mg/dL (8.5-10.1); CO2 21 mmol/L (21-32); GLUCOSE,RANDOM 102 mg/dL (74-106); MAGNESIUM 2.4 mg/dL (1.8-2.4)
[2017-08-03 09:28] LABS: PHOSPHOROUS 2.4 mg/dL (2.5-4.9)
[2017-08-03 09:45] LABS: CPK 180 IU/L (39-308)
[2017-08-03 10:00] LABS: CREATININE 10.4 mg/dL (0.7-1.3); TROPONIN I 2.54 ng/ml (0.00-0.05)
[2017-08-03] MEDS: ASPIRIN COATED 81 MG TABLET.EC PO SCH (10:24)
[2017-08-03] MEDS: CLOPIDOGREL BISULFATE 75 MG TABLET (FP) PO SCH (10:25)
[2017-08-03] MEDS: ISOSORBIDE MONONITRATE 30 MG TAB.SR.24H (FP) PO SCH ×2 (10:25→21:33)
[2017-08-03] MEDS: hydrALAZINE HCL 10 MG TABLET PO SCH ×2 (10:26→21:33)
[2017-08-03] MEDS: FUROSEMIDE 40 MG/4 ML INJECTABLE VIAL IVPUSH SCH (10:26)
--- NOTE | 2017-08-03 10:36 | PN ---
Progress Note (short form) - Note Progress Note: Progress Note: CC: CP/nstemi S: No recurrence of chest discomfort. no sob, is comfortable and out of bed to chair. no palps, dizziness. had femoral line placed for HD access. ex cigs Current Medications Generic Name Dose Route Start Last Admin Trade Name Freq PRN Reason Stop Dose Admin Acetaminophen 325 mg 08/02/17 14:00 Tylenol - PO Q4H PRN FEVER OR PAIN Aspirin 81 mg 08/03/17 10:00 08/03/17 10:24 Ecotrin - PO 81 mg DAILY [facility] Administration Atorvastatin Calcium 80 mg 08/02/17 22:00 08/02/17 21:18 Lipitor - PO 80 mg HS [facility]U Administration Clopidogrel Bisulfate 75 mg 08/03/17 10:00 08/03/17 10:25 Plavix - PO 75 mg DAILY [facility]U Administration Furosemide 120 mg 08/03/17 10:00 08/03/17 10:26 Lasix Injection - IVPUSH Not Given DAILY [facility]U Hydralazine HCl 10 mg 08/02/17 22:00 08/03/17 10:26 Apresoline - PO Not Given BID MAU Isosorbide Mononitrate 30 mg 08/02/17 22:00 08/03/17 10:25 Imdur - PO 30 mg BID [facility]U Administration Metoprolol Tartrate 50 mg 08/02/17 14:00 08/03/17 05:24 Lopressor - PO 50 mg TID MAU Administration Sodium Bicarbonate 650 mg 08/02/17 14:00 08/03/17 05:24 Sodium Bicarbonate - PO 650 mg TID MAU Administration Vital Signs Temp 98.5 F 08/03/17 06:00 Pulse 66 08/03/17 06:00 Resp 16 08/03/17 06:00 BP 137/73 08/03/17 06:00 Pulse Ox 96 08/02/17 20:39 Intake & Output 08/02/17 08/02/17 08/03/17 11:59 23:59 11:59 Intake Total 504 120 96 Output Total 1200 650 Balance -696 -530 96 Weight 143 lb 1.28 oz 140 lb Intake: IV 264 120 96 Heparin Infusion - 500 ml 264 @ 1,000 UNITS/HR 20 mls/ hr IVPB TITR [facility] Rx#: [id number] Heparin Infusion - 500 ml 120 96 @ 1,000 UNITS/HR 20 mls/ hr IVPB TITR [facility] Rx#: [id number] Oral Supplement 240 Output: Urine 1200 650 Void 1200 650 Other: Voiding Method Urinal Urinal Weight Measurement Method Built in Bedscale Standing Scale nad, calm jvd increased, neck supple trace bibasilar rales, nl effort rrr nl s1, s2. no mrg. displaced pmi + bs soft nt nd ext without e/c/c no carotid bruit aaox3 no jaundice, diaphoresis. Laboratory Last Values WBC 8.0 K/mm3 (4.0-10.0) 08/03/17 06:05 RBC 3.59 M/mm3 (4.00-5.60) L 08/03/17 06:05 Hgb 10.3 GM/dL (11.7-16.9) L 08/03/17 06:05 Hct 30.3 % (35.4-49) L 08/03/17 06:05 MCV 84.4 fl (80-96) 08/03/17 06:05 MCH 28.7 pg (25.7-33.7) 08/03/17 06:05 MCHC 34.0 g/dl (32.0-35.9) 08/03/17 06:05 RDW 15.0 % (11.9-15.9) 08/03/17 06:05 Plt Count 224 K/MM3 (134-434) 08/03/17 06:05 MPV 9.1 fl (7.5-11.1) 08/03/17 06:05 Neutrophils % 64.3 % (42.8-82.8) 08/03/17 06:05 Lymphocytes % 20.3 % (8-40) D 08/03/17 06:05 Monocytes % 9.8 % (3.8-10.2) 08/03/17 06:05 Eosinophils % 5.2 % (0-4.5) H 08/03/17 06:05 Basophils % 0.4 % (0-2.0) 08/03/17 06:05 PT with INR 12.60 SEC (9.98-11.88) H 07/31/17 10:20 INR 1.14 (0.82-1.09) 07/31/17 10:20 PTT (Actin FS) 47.0 SECONDS (26.9-34.4) H 08/03/17 06:05 Sodium 135 mmol/L (136-145) L 08/03/17 06:05 Potassium 3.4 mmol/L (3.5-5.1) L 08/03/17 06:05 Chloride 95 mmol/L (98-107) L 08/03/17 06:05 Carbon Dioxide 21 mmol/L (21-32) 08/03/17 06:05 Anion Gap 19 (8-16) H 08/03/17 06:05 BUN 122 mg/dL (7-18) H* 08/03/17 06:05 Creatinine 10.4 mg/dL (0.7-1.3) H* 08/03/17 06:05 Creat Clearance w eGFR 5.88 (>60) 08/01/17 05:00 POC Glucometer 80.35794 UNITS (()) 07/31/17 09:40 Random Glucose 102 mg/dL (74-106) 08/03/17 06:05 Lactic Acid 1.1 mmol/L (0.4-2.0) 08/02/17 09:45 Calcium 7.7 mg/dL (8.5-10.1) L 08/03/17 06:05 Phosphorus 2.4 mg/dL (2.5-4.9) L D 08/03/17 06:05 Magnesium 2.4 mg/dL (1.8-2.4) 08/03/17 06:05 Total Bilirubin 0.6 mg/dL (0.2-1.0) 08/01/17 05:00 AST 33 U/L (15-37) D 08/01/17 05:00 ALT 21 U/L (12-78) 08/01/17 05:00 Alkaline Phosphatase 81 U/L (45-117) 08/01/17 05:00 Creatine Kinase 180 IU/L (39-308) 08/03/17 06:05 Creatine Kinase Index 3.2 % (0.0-5.0) 08/03/17 06:05 CK-MB (CK-2) 5.850 ng/mL (0.5-3.6) H 08/03/17 06:05 Troponin I 2.54 ng/ml (0.00-0.05) H* D 08/03/17 06:05 B-Natriuretic Peptide 56301.35 pg/ml (5-450) H 07/31/17 10:20 Total Protein 6.1 g/dl (6.4-8.2) L 08/01/17 05:00 Albumin 2.7 g/dl (3.4-5.0) L 08/01/17 05:00 Urine Color Straw 07/31/17 10:25 Urine Appearance Clear 07/31/17 10:25 Urine pH 5.0 (5.0-8.0) 07/31/17 10:25 Ur Specific [place] 1.015 (1.005-1.025) 07/31/17 10:25 Urine Protein 2+ (NEGATIVE) H 07/31/17 10:25 Urine Glucose (UA) 1+ (NEGATIVE) H 07/31/17 10:25 Urine Ketones Trace (NEGATIVE) H 07/31/17 10:25 Urine Blood 1+ (NEGATIVE) H 07/31/17 10:25 Urine Nitrite Negative (NEGATIVE) 07/31/17 10:25 Urine Bilirubin Negative (NEGATIVE) 07/31/17 10:25 Urine Urobilinogen Negative mg/dL (0.2-1.0) 07/31/17 10:25 Ur Leukocyte Esterase Negative (NEGATIVE) 07/31/17 10:25 Urine RBC <1 /hpf (0-3) 07/31/17 10:25 Urine WBC 1 /hpf (3-5) 07/31/17 10:25 Urine Bacteria Rare /hpf (NONE SEEN) 07/31/17 10:25 EKG 07/31 #1: nsr, 99 bpm. lad. prolonged qt. New downsloping STD in the anterolateral leads. EKG 07/31 #2: nsr, 85 bpm. lad. prolonged qt. anterolateral changes still present but much improved. tele: sr cxr: cm. congestion. possible RLL infiltrate. echo 10/2016: nl lv/rv, no sig valve path mibi 10/2016: nl mpi, nl lvef.eg a/p: 77 yo with h/o cad (s/p mild mi 1990 per pt tx with cath/angioplasty), htn , hl, carotid dz s/p left cea 02/2017, ESRD s/p AV fisutula last month in anticipation of HD initiation, htn, hld, dm here with cp/nstemi. CP/nstemi/known cad - Initial EKG borderline tachycardic with new ekg changes (improved on follow up ekg after heart rate slowed). - 07/31: ACS protocol: asa, plavix, heparin, statin. nitroglycerin to keep patient cp free and sys bp < 140. Can add metoprolol tartrate 25 mg or 50 mg ( depending on bp) TID to maintain HR < 70. s/p lasix 120 mg x 1 today with good uop response. Would repeat dose tomorrow. Can use bipap if needed. - 08/01: ACS protocol, day 2 of heparin, con't. Echo today to assess EF and evaluate for ischemic MR. Will uptitrate lopressor for goal HR < 70. Begin weaning nitro drip. Addition of anti-anginal/anti-hypertensive depending on EF. Con't lasix 120 mg IV daily for pulmonary edema. - discussed recommendation for cardiac catheterization with patient and family. Patient states he would like to be dnr/dni. Counseled patient on the need to temporarily reverse dnr/dni jordy-procedure in order to get cardiac catheterization and patient declining. --> con't medical management of nstemi per patient preference. If EF is normal and no ischemic MR than not unreasonable to pursue conservative strategy. - 08/02-: ACS protocol continues with heparin and dapt. Pt remains cp free. Echo with only mild LV dysfunction, no significant MR. Pursuing medical mgm't of nstemi per patient preference. Hep gtt can now be stopped as it has been 72 hours. htn - con't current regimen, HR/bp reasonable overall control on metoprolol, imdur , hydralazine. Hld - con't statin s/p L CEA 02/2017 - no neurologic sx's. anti-platelets, statin as above ESRD s/p AV fistula last month in anticipation of HD initiation (not yet mature) - has femoral line access, may proceed with HD from cardiac pov
--- NOTE | 2017-08-03 10:51 | PN ---
Progress Note, Physician History of Present Illness: pulmonary alert,feeling better,-c/o cp,-sob - Current Medication List Current Medications: Active Medications Acetaminophen (Tylenol -) 325 mg PO Q4H PRN PRN Reason: FEVER OR PAIN Aspirin (Ecotrin -) 81 mg PO DAILY [facility] Last Admin: 08/03/17 10:24 Dose: 81 mg Atorvastatin Calcium (Lipitor -) 80 mg PO HS [facility] Last Admin: 08/02/17 21:18 Dose: 80 mg Clopidogrel Bisulfate (Plavix -) 75 mg PO DAILY [facility] Last Admin: 08/03/17 10:25 Dose: 75 mg Furosemide (Lasix Injection -) 120 mg IVPUSH DAILY [facility] Last Admin: 08/03/17 10:26 Dose: Not Given Hydralazine HCl (Apresoline -) 10 mg PO BID [facility] Last Admin: 08/03/17 10:26 Dose: Not Given Isosorbide Mononitrate (Imdur -) 30 mg PO BID [facility] Last Admin: 08/03/17 10:25 Dose: 30 mg Metoprolol Tartrate (Lopressor -) 50 mg PO TID [facility] Last Admin: 08/03/17 05:24 Dose: 50 mg Sodium Bicarbonate (Sodium Bicarbonate -) 650 mg PO TID [facility] Last Admin: 08/03/17 05:24 Dose: 650 mg - Objective Vital Signs: Vital Signs Temperature 98.5 F 08/03/17 06:00 Pulse Rate 66 08/03/17 06:00 Respiratory Rate 16 08/03/17 06:00 Blood Pressure 137/73 08/03/17 06:00 O2 Sat by Pulse Oximetry (%) 96 08/02/17 20:39 Constitutional: Yes: Well Nourished, Calm Eyes: Yes: WNL HENT: Yes: WNL Neck: Yes: WNL Cardiovascular: Yes: Regular Rate and Rhythm, S1, S2 Respiratory: Yes: Rales (bibasilar crackles) Gastrointestinal: Yes: Normal Bowel Sounds, Soft Extremities: Yes: WNL Edema: No Labs: CBC, BMP 08/03/17 06:05 08/03/17 06:05 INR, PTT INR 1.14 (0.82-1.09) 07/31/17 10:20 Problem List - Problems (1) ACS (acute coronary syndrome) Code(s): I24.9 - ACUTE ISCHEMIC HEART DISEASE, UNSPECIFIED (2) CHF (congestive heart failure) Code(s): I50.9 - HEART FAILURE, UNSPECIFIED Qualifiers: Congestive heart failure type: systolic Congestive heart failure chronicity: acute Qualified Code(s): I50.21 - Acute systolic (congestive ) heart failure; I50.21 - Acute systolic (congestive) heart failure; I50.21 - Acute systolic (congestive) heart failure; I50.21 - Acute systolic (congestive) heart failure (3) CKD (chronic kidney disease) stage 5, 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 ml/min Code(s): N18.5 - CHRONIC KIDNEY DISEASE, STAGE 5 (4) Diabetes Code(s): E11.9 - TYPE 2 DIABETES MELLITUS WITHOUT COMPLICATIONS Qualifiers: Diabetes mellitus type: type 2 Diabetes mellitus complication status: with kidney complications Diabetes mellitus complication detail: with chronic kidney disease Diabetes mellitus terminal operator insulin use: without fdc use Chronic kidney disease stage: stage 5, not on chronic dialysis Qualified Code(s): E11.22 - Type 2 diabetes mellitus with diabetic chronic kidney disease; E11.22 - Type 2 diabetes mellitus with diabetic chronic kidney disease; E11.22 - Type 2 diabetes mellitus with diabetic chronic kidney disease; E11.22 - Type 2 diabetes mellitus with diabetic chronic kidney disease; E11.22 - Type 2 diabetes mellitus with diabetic chronic kidney disease; N18.1 - Chronic kidney disease, stage 1; N18.1 - Chronic kidney disease, stage 1; Z79.4 - alf (current) use of insulin; Z79.4 - alf (current) use of insulin; Z79.4 - alf (current) use of insulin; Z79.4 - termite control servicer (current) use of insulin (5) End stage chronic kidney disease Code(s): N18.6 - END STAGE RENAL DISEASE Z99.2 - DEPENDENCE ON RENAL DIALYSIS (6) Hypoxia Code(s): R09.02 - HYPOXEMIA (7) Non-ST elevation [place] (NSTEMI) Code(s): I21.4 - NON-ST ELEVATION (NSTEMI) MYOCARDIAL INFARCTION Assessment/Plan ASSESSMENT AND PLAN: Acute NSTEMI Acute Pulmonary Edema clinically improving Hypertensive Urgency Acute on CKD 5 DM - IV lasix - monitor urine output, creatinine - monitor CXR - monitoring off antibiotics as pt afebrile with normal WBC - O2 to keep SpO2 >90% - ASA, plavix - HD per renal DR LOUISE
--- NOTE | 2017-08-03 13:23 | PN ---
Progress Note, Physician History of Present Illness: Pt seen and examined at bedside. He is awake and alert. He denies chest pain. He denies shortness of breath. - Current Medication List Current Medications: Active Medications Acetaminophen (Tylenol -) 325 mg PO Q4H PRN PRN Reason: FEVER OR PAIN Aspirin (Ecotrin -) 81 mg PO DAILY [facility] Last Admin: 08/03/17 10:24 Dose: 81 mg Atorvastatin Calcium (Lipitor -) 80 mg PO HS [facility] Last Admin: 08/02/17 21:18 Dose: 80 mg Clopidogrel Bisulfate (Plavix -) 75 mg PO DAILY [facility] Last Admin: 08/03/17 10:25 Dose: 75 mg Furosemide (Lasix Injection -) 120 mg IVPUSH DAILY [facility] Last Admin: 08/03/17 10:26 Dose: Not Given Hydralazine HCl (Apresoline -) 10 mg PO BID [facility] Last Admin: 08/03/17 10:26 Dose: Not Given Isosorbide Mononitrate (Imdur -) 30 mg PO BID [facility] Last Admin: 08/03/17 10:25 Dose: 30 mg Metoprolol Tartrate (Lopressor -) 50 mg PO TID [facility] Last Admin: 08/03/17 05:24 Dose: 50 mg Sodium Bicarbonate (Sodium Bicarbonate -) 650 mg PO TID [facility] Last Admin: 08/03/17 05:24 Dose: 650 mg - Objective Vital Signs: Vital Signs Temperature 98.8 F 08/03/17 08:00 Pulse Rate 62 08/03/17 08:00 Respiratory Rate 16 08/03/17 09:00 Blood Pressure 136/70 08/03/17 08:00 O2 Sat by Pulse Oximetry (%) 96 08/03/17 09:00 Constitutional: Yes: Calm Eyes: Yes: Conjunctiva Clear HENT: Yes: Atraumatic Neck: Yes: Supple Cardiovascular: Yes: S1, S2 Respiratory: Yes: CTA Bilaterally Gastrointestinal: Yes: Soft Genitourinary: Yes: WNL Musculoskeletal: Yes: WNL Edema: No Neurological: Yes: Oriented Psychiatric: Yes: Oriented Labs: CBC, BMP 08/03/17 06:05 08/03/17 06:05 INR, PTT INR 1.14 (0.82-1.09) 07/31/17 10:20 Problem List - Problems (1) ACS (acute coronary syndrome) Code(s): I24.9 - ACUTE ISCHEMIC HEART DISEASE, UNSPECIFIED (2) Diabetes Code(s): E11.9 - TYPE 2 DIABETES MELLITUS WITHOUT COMPLICATIONS Qualifiers: Diabetes mellitus type: type 2 Diabetes mellitus complication status: with kidney complications Diabetes mellitus complication detail: with chronic kidney disease Diabetes mellitus penitentiary insulin use: without equipment operator intermodal yard use Chronic kidney disease stage: stage 5, not on chronic dialysis Qualified Code(s): E11.22 - Type 2 diabetes mellitus with diabetic chronic kidney disease; E11.22 - Type 2 diabetes mellitus with diabetic chronic kidney disease; E11.22 - Type 2 diabetes mellitus with diabetic chronic kidney disease; E11.22 - Type 2 diabetes mellitus with diabetic chronic kidney disease; E11.22 - Type 2 diabetes mellitus with diabetic chronic kidney disease; N18.1 - Chronic kidney disease, stage 1; N18.1 - Chronic kidney disease, stage 1; Z79.4 - penitentiary (current) use of insulin; Z79.4 - penitentiary (current) use of insulin; Z79.4 - terminologist (current) use of insulin; Z79.4 - terminologist (current) use of insulin (3) Dyslipidemia Code(s): E78.5 - HYPERLIPIDEMIA, UNSPECIFIED (4) Hypertension Code(s): I10 - ESSENTIAL (PRIMARY) HYPERTENSION Qualifiers: Hypertension type: essential hypertension Qualified Code(s): I10 - Essential (primary) hypertension; I10 - Essential (primary) hypertension; I10 - Essential (primary) hypertension (5) Non-ST elevation [place] (NSTEMI) Code(s): I21.4 - NON-ST ELEVATION (NSTEMI) MYOCARDIAL INFARCTION (6) CKD (chronic kidney disease) stage 5, 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 ml/min Code(s): N18.5 - CHRONIC KIDNEY DISEASE, STAGE 5 Assessment/Plan Current Medications Generic Name Dose Route Start Last Admin Trade Name Freq PRN Reason Stop Dose Admin Acetaminophen 325 mg 08/02/17 14:00 Tylenol - PO Q4H PRN FEVER OR PAIN Aspirin 81 mg 08/03/17 10:00 08/03/17 10:24 Ecotrin - PO 81 mg DAILY [facility] Administration Atorvastatin Calcium 80 mg 08/02/17 22:00 08/02/17 21:18 Lipitor - PO 80 mg HS [facility] Administration Clopidogrel Bisulfate 75 mg 08/03/17 10:00 08/03/17 10:25 Plavix - PO 75 mg DAILY [facility] Administration Furosemide 120 mg 08/03/17 10:00 08/03/17 10:26 Lasix Injection - IVPUSH Not Given DAILY [facility] Hydralazine HCl 10 mg 08/02/17 22:00 08/03/17 10:26 Apresoline - PO Not Given BID [facility] Isosorbide Mononitrate 30 mg 08/02/17 22:00 08/03/17 10:25 Imdur - PO 30 mg BID [facility] Administration Metoprolol Tartrate 50 mg 08/02/17 14:00 08/03/17 05:24 Lopressor - PO 50 mg TID [facility] Administration Sodium Bicarbonate 650 mg 08/02/17 14:00 08/03/17 05:24 Sodium Bicarbonate - PO 650 mg TID [facility] Administration Impression 1. CKD 2. NSTEMI 3. HTN 4. hyperlipidemia 5. CAD Plan - will arrange for HD today - will evaluate again for HD in am - can hold lasix - pt will get HD through [facility] - can stop PO bicarb - ptis refusing cardiac cath - cardio follow up - will follow Dr Roa
--- NOTE | 2017-08-03 14:54 | PN ---
Progress Note, Physician Chief Complaint: Mr Araya says he feels tired today. No cp, sob, n/v. - Current Medication List Current Medications: Active Medications Acetaminophen (Tylenol -) 325 mg PO Q4H PRN PRN Reason: FEVER OR PAIN Aspirin (Ecotrin -) 81 mg PO DAILY [facility] Last Admin: 08/03/17 10:24 Dose: 81 mg Atorvastatin Calcium (Lipitor -) 80 mg PO HS [facility] Last Admin: 08/02/17 21:18 Dose: 80 mg Clopidogrel Bisulfate (Plavix -) 75 mg PO DAILY [facility] Last Admin: 08/03/17 10:25 Dose: 75 mg Furosemide (Lasix Injection -) 120 mg IVPUSH DAILY [facility] Last Admin: 08/03/17 10:26 Dose: Not Given Hydralazine HCl (Apresoline -) 10 mg PO BID [facility] Last Admin: 08/03/17 10:26 Dose: Not Given Isosorbide Mononitrate (Imdur -) 30 mg PO BID [facility] Last Admin: 08/03/17 10:25 Dose: 30 mg Metoprolol Tartrate (Lopressor -) 50 mg PO TID [facility] Last Admin: 08/03/17 14:01 Dose: Not Given - Objective Vital Signs: Vital Signs Temperature 37.1 C 08/03/17 08:00 Pulse Rate 68 08/03/17 10:31 Respiratory Rate 16 08/03/17 09:00 Blood Pressure 136/70 08/03/17 08:00 O2 Sat by Pulse Oximetry (%) 96 08/03/17 10:31 Constitutional: Yes: Well Nourished, No Distress, Calm Cardiovascular: Yes: Regular Rate and Rhythm. No: Gallop, Murmur, Rub Respiratory: Yes: Regular, CTA Bilaterally. No: Rales, Rhonchi, Wheezes Gastrointestinal: Yes: Normal Bowel Sounds, Soft. No: Distention, Tenderness Extremities: Yes: WNL Edema: No Labs: CBC, BMP 08/03/17 06:05 08/03/17 06:05 INR, PTT INR 1.14 (0.82-1.09) 07/31/17 10:20 Problem List - Problems (1) Non-ST elevation [place] (NSTEMI) Code(s): I21.4 - NON-ST ELEVATION (NSTEMI) MYOCARDIAL INFARCTION (2) End stage chronic kidney disease Code(s): N18.6 - END STAGE RENAL DISEASE Z99.2 - DEPENDENCE ON RENAL DIALYSIS (3) Diabetes Code(s): E11.9 - TYPE 2 DIABETES MELLITUS WITHOUT COMPLICATIONS Qualifiers: Diabetes mellitus type: type 2 Diabetes mellitus complication status: with kidney complications Diabetes mellitus complication detail: with chronic kidney disease Diabetes mellitus machine long goods helper insulin use: without machine long goods helper use Chronic kidney disease stage: stage 5, not on chronic dialysis Qualified Code(s): E11.22 - Type 2 diabetes mellitus with diabetic chronic kidney disease; E11.22 - Type 2 diabetes mellitus with diabetic chronic kidney disease; E11.22 - Type 2 diabetes mellitus with diabetic chronic kidney disease; E11.22 - Type 2 diabetes mellitus with diabetic chronic kidney disease; E11.22 - Type 2 diabetes mellitus with diabetic chronic kidney disease; N18.1 - Chronic kidney disease, stage 1; N18.1 - Chronic kidney disease, stage 1; Z79.4 - halfway (current) use of insulin; Z79.4 - intermediate teacher (current) use of insulin; Z79.4 - halfway (current) use of insulin; Z79.4 - intermediate teacher (current) use of insulin (4) Hypertension Code(s): I10 - ESSENTIAL (PRIMARY) HYPERTENSION Qualifiers: Hypertension type: essential hypertension Qualified Code(s): I10 - Essential (primary) hypertension; I10 - Essential (primary) hypertension; I10 - Essential (primary) hypertension (5) CHF (congestive heart failure) Code(s): I50.9 - HEART FAILURE, UNSPECIFIED Qualifiers: Congestive heart failure type: systolic Congestive heart failure chronicity: acute Qualified Code(s): I50.21 - Acute systolic (congestive ) heart failure; I50.21 - Acute systolic (congestive) heart failure; I50.21 - Acute systolic (congestive) heart failure; I50.21 - Acute systolic (congestive) heart failure Assessment/Plan (1) Non-ST elevation [place] (NSTEMI) Assessment/Plan: -cardiology following -heparin gtt stopped -troponins trending down -continue metoprolol, lipitor, aspirin, plavix, and imdur -? if would benefit from ACEI/ARB Code(s): I21.4 - NON-ST ELEVATION (NSTEMI) MYOCARDIAL INFARCTION (2) End stage chronic kidney disease Assessment/Plan: -nephrology following and case discused -planning for HD today Code(s): N18.6 - END STAGE RENAL DISEASE Z99.2 - DEPENDENCE ON RENAL DIALYSIS (3) Diabetes Assessment/Plan: -continue diabetic diet Code(s): E11.9 - TYPE 2 DIABETES MELLITUS WITHOUT COMPLICATIONS Qualifiers: Diabetes mellitus type: type 2 Diabetes mellitus complication status: with kidney complications Diabetes mellitus complication detail: with chronic kidney disease Diabetes mellitus machine long goods helper insulin use: without machine long goods helper use Chronic kidney disease stage: stage 5, not on chronic dialysis Qualified Code(s): E11.22 - Type 2 diabetes mellitus with diabetic chronic kidney disease; E11.22 - Type 2 diabetes mellitus with diabetic chronic kidney disease; E11.22 - Type 2 diabetes mellitus with diabetic chronic kidney disease; E11.22 - Type 2 diabetes mellitus with diabetic chronic kidney disease; E11.22 - Type 2 diabetes mellitus with diabetic chronic kidney disease; N18.1 - Chronic kidney disease, stage 1; N18.1 - Chronic kidney disease, stage 1; Z79.4 - halfway (current) use of insulin; Z79.4 - intermediate teacher (current) use of insulin; Z79.4 - halfway (current) use of insulin; Z79.4 - halfway (current) use of insulin (4) Hypertension Assessment/Plan: -controlled -continue hydralazine -continue metoprolol and imdur Code(s): I10 - ESSENTIAL (PRIMARY) HYPERTENSION Qualifiers: Hypertension type: essential hypertension Qualified Code(s): I10 - Essential (primary) hypertension; I10 - Essential (primary) hypertension; I10 - Essential (primary) hypertension (5) CHF (congestive heart failure) Assessment/Plan: -secondary to NSTEMI/ACS -ECHO showing systolic dysfunction -treating underlying ACS -? if needs IV lasix with HD, will defer to nephrology and cardiology Code(s): I50.9 - HEART FAILURE, UNSPECIFIED Qualifiers: Congestive heart failure type: systolic Congestive heart failure chronicity: acute Qualified Code(s): I50.21 - Acute systolic (congestive ) heart failure; I50.21 - Acute systolic (congestive) heart failure; I50.21 - Acute systolic (congestive) heart failure; I50.21 - Acute systolic (congestive) heart failure
[2017-08-03] MEDS: ATORVASTATIN CA 80 MG TABLET (FP) PO SCH (21:33)
[2017-08-03] MEDS ORDERED: ACETAMINOPHEN 325 MG TABLET (FP) ONE (21:38)
[2017-08-04] MEDS: METOPROLOL TARTRATE 25 MG TABLET (FP) PO SCH ×3 (06:30→21:19)
[2017-08-04 06:56] LABS: MCH 28.6 pg (25.7-33.7); MCHC 33.9 g/dl (32.0-35.9); MEAN CELL VOLUME 84.4 fl (80-96); MEAN PLT VOLUME 9.2 fl (7.5-11.1); PLATELET COUNT 241 K/MM3 (134-434); RDW 14.8 % (11.9-15.9); WHITE BLOOD COUNT 7.5 K/mm3 (4.0-10.0)
[2017-08-04 07:10] LABS: ANION GAP 14 (8-16); CALCIUM 8.2 mg/dL (8.5-10.1); CO2 25 mmol/L (21-32); GLUCOSE,RANDOM 109 mg/dL (74-106); MAGNESIUM 2.2 mg/dL (1.8-2.4); PHOSPHOROUS 7.8 mg/dL (2.5-4.9)
[2017-08-04 07:43] LABS: CREATININE 8.4 mg/dL (0.7-1.3)
[2017-08-04] MEDS: CLOPIDOGREL BISULFATE 75 MG TABLET (FP) PO SCH (09:13)
[2017-08-04] MEDS: hydrALAZINE HCL 10 MG TABLET PO SCH ×2 (09:13→21:19)
[2017-08-04] MEDS: ISOSORBIDE MONONITRATE 30 MG TAB.SR.24H (FP) PO SCH ×2 (09:13→21:19)
[2017-08-04] MEDS: ASPIRIN COATED 81 MG TABLET.EC PO SCH (09:13)
[2017-08-04] MEDS: FUROSEMIDE 40 MG/4 ML INJECTABLE VIAL IVPUSH SCH (09:14)
--- NOTE | 2017-08-04 10:16 | PN ---
Progress Note (short form) - Note Progress Note: Progress Note: CC: CP/nstemi S: No recurrence of chest discomfort. no sob, is comfortable and out of bed to chair. no palps, dizziness. tolerated hd yesterday Current Medications Generic Name Dose Route Start Last Admin Trade Name Tru PRN Reason Stop Dose Admin Acetaminophen 325 mg 08/02/17 14:00 Tylenol - PO Q4H PRN FEVER OR PAIN Aspirin 81 mg 08/03/17 10:00 08/04/17 09:13 Ecotrin - PO 81 mg DAILY [facility] Administration Atorvastatin Calcium 80 mg 08/02/17 22:00 08/03/17 21:33 Lipitor - PO 80 mg HS [facility] Administration Clopidogrel Bisulfate 75 mg 08/03/17 10:00 08/04/17 09:13 Plavix - PO 75 mg DAILY [facility] Administration Furosemide 120 mg 08/03/17 10:00 08/04/17 09:14 Lasix Injection - IVPUSH 120 mg DAILY [facility] Administration Hydralazine HCl 10 mg 08/02/17 22:00 08/04/17 09:13 Apresoline - PO 10 mg BID [facility]U Administration Isosorbide Mononitrate 30 mg 08/02/17 22:00 08/04/17 09:13 Imdur - PO 30 mg BID [facility]U Administration Metoprolol Tartrate 50 mg 08/02/17 14:00 08/04/17 06:30 Lopressor - PO 50 mg TID [facility] Administration Vital Signs Period Temp Pulse Resp BP Sys/Rausch Pulse Ox Last 24 Hr 97.8 F-98.7 F 62-71 17-20 115-145/63-79 96-97 nad, calm jvd increased, neck supple trace bibasilar rales, nl effort rrr nl s1, s2. no mrg. displaced pmi + bs soft nt nd ext without e/c/c aaox3 no jaundice, diaphoresis. CBC, BMP 08/04/17 06:15 08/04/17 06:15 EKG 07/31 #1: nsr, 99 bpm. lad. prolonged qt. New downsloping STD in the anterolateral leads. EKG 07/31 #2: nsr, 85 bpm. lad. prolonged qt. anterolateral changes still present but much improved. tele: sr, occ pvcs echo 10/2016: nl lv/rv, no sig valve path mibi 10/2016: nl mpi, nl lvef.eg a/p: 77 yo with h/o cad (s/p mild mi 1990 per pt tx with cath/angioplasty), htn , hl, carotid dz s/p left cea 02/2017, ESRD s/p AV fisutula last month in anticipation of HD initiation, htn, hld, dm here with cp/nstemi. CP/nstemi/known cad - Initial EKG borderline tachycardic with new ekg changes (improved on follow up ekg after heart rate slowed). - 07/31: ACS protocol: asa, plavix, heparin, statin. nitroglycerin to keep patient cp free and sys bp < 140. Can add metoprolol tartrate 25 mg or 50 mg ( depending on bp) TID to maintain HR < 70. s/p lasix 120 mg x 1 today with good uop response. Would repeat dose tomorrow. Can use bipap if needed. - 08/01: ACS protocol, day 2 of heparin, con't. Echo today to assess EF and evaluate for ischemic MR. Will uptitrate lopressor for goal HR < 70. Begin weaning nitro drip. Addition of anti-anginal/anti-hypertensive depending on EF. Con't lasix 120 mg IV daily for pulmonary edema. - discussed recommendation for cardiac catheterization with patient and family. Patient states he would like to be dnr/dni. Counseled patient on the need to temporarily reverse dnr/dni jordy-procedure in order to get cardiac catheterization and patient declining. --> con't medical management of nstemi per patient preference. If EF is normal and no ischemic MR than not unreasonable to pursue conservative strategy. - 08/02-: ACS protocol completed. Pt remains cp free. Echo with only mild LV dysfunction, no significant MR. Pursuing medical mgm't of nstemi per patient preference. Cont dapt. htn - con't current regimen, HR/bp reasonable overall control on metoprolol, imdur , hydralazine. Hld - con't statin s/p L CEA 02/2017 - no neurologic sx's. anti-platelets, statin as above ESRD s/p AV fistula last month in anticipation of HD initiation (not yet mature) - has femoral line access, may proceed with HD from cardiac pov
--- NOTE | 2017-08-04 11:50 | PN ---
Progress Note, Physician Chief Complaint: Mr Araya says he feels better today. Denies cp, sob, n/v. - Current Medication List Current Medications: Active Medications Acetaminophen (Tylenol -) 325 mg PO Q4H PRN PRN Reason: FEVER OR PAIN Aspirin (Ecotrin -) 81 mg PO DAILY [facility] Last Admin: 08/04/17 09:13 Dose: 81 mg Atorvastatin Calcium (Lipitor -) 80 mg PO HS [facility] Last Admin: 08/03/17 21:33 Dose: 80 mg Clopidogrel Bisulfate (Plavix -) 75 mg PO DAILY [facility] Last Admin: 08/04/17 09:13 Dose: 75 mg Furosemide (Lasix Injection -) 120 mg IVPUSH DAILY [facility] Last Admin: 08/04/17 09:14 Dose: 120 mg Hydralazine HCl (Apresoline -) 10 mg PO BID [facility] Last Admin: 08/04/17 09:13 Dose: 10 mg Isosorbide Mononitrate (Imdur -) 30 mg PO BID [facility] Last Admin: 08/04/17 09:13 Dose: 30 mg Metoprolol Tartrate (Lopressor -) 50 mg PO TID [facility] Last Admin: 08/04/17 06:30 Dose: 50 mg - Objective Vital Signs: Vital Signs Temperature 36.6 C 08/04/17 09:35 Pulse Rate 62 08/04/17 09:46 Respiratory Rate 18 08/04/17 09:35 Blood Pressure 138/69 08/04/17 09:35 O2 Sat by Pulse Oximetry (%) 97 08/04/17 09:46 Constitutional: Yes: Well Nourished, No Distress, Calm Cardiovascular: Yes: Regular Rate and Rhythm. No: Gallop, Murmur, Rub Respiratory: Yes: Regular, CTA Bilaterally. No: Rales, Rhonchi, Wheezes Gastrointestinal: Yes: Normal Bowel Sounds, Soft. No: Distention, Tenderness Extremities: Yes: WNL Edema: No Labs: CBC, BMP 08/04/17 06:15 08/04/17 06:15 INR, PTT INR 1.14 (0.82-1.09) 07/31/17 10:20 Problem List - Problems (1) Non-ST elevation CT (NSTEMI) Code(s): I21.4 - NON-ST ELEVATION (NSTEMI) MYOCARDIAL INFARCTION (2) End stage chronic kidney disease Code(s): N18.6 - END STAGE RENAL DISEASE Z99.2 - DEPENDENCE ON RENAL DIALYSIS (3) Diabetes Code(s): E11.9 - TYPE 2 DIABETES MELLITUS WITHOUT COMPLICATIONS Qualifiers: Diabetes mellitus type: type 2 Diabetes mellitus complication status: with kidney complications Diabetes mellitus complication detail: with chronic kidney disease Diabetes mellitus long term care social worker insulin use: without long term care social worker use Chronic kidney disease stage: stage 5, not on chronic dialysis Qualified Code(s): E11.22 - Type 2 diabetes mellitus with diabetic chronic kidney disease; E11.22 - Type 2 diabetes mellitus with diabetic chronic kidney disease; E11.22 - Type 2 diabetes mellitus with diabetic chronic kidney disease; E11.22 - Type 2 diabetes mellitus with diabetic chronic kidney disease; E11.22 - Type 2 diabetes mellitus with diabetic chronic kidney disease; N18.1 - Chronic kidney disease, stage 1; N18.1 - Chronic kidney disease, stage 1; Z79.4 - equipment operator intermodal yard (current) use of insulin; Z79.4 - penitentiary (current) use of insulin; Z79.4 - penitentiary (current) use of insulin; Z79.4 - equipment operator intermodal yard (current) use of insulin (4) Hypertension Code(s): I10 - ESSENTIAL (PRIMARY) HYPERTENSION Qualifiers: Hypertension type: essential hypertension Qualified Code(s): I10 - Essential (primary) hypertension; I10 - Essential (primary) hypertension; I10 - Essential (primary) hypertension (5) CHF (congestive heart failure) Code(s): I50.9 - HEART FAILURE, UNSPECIFIED Qualifiers: Congestive heart failure type: systolic Congestive heart failure chronicity: acute Qualified Code(s): I50.21 - Acute systolic (congestive ) heart failure; I50.21 - Acute systolic (congestive) heart failure; I50.21 - Acute systolic (congestive) heart failure; I50.21 - Acute systolic (congestive) heart failure Assessment/Plan (1) Non-ST elevation CT (NSTEMI) Assessment/Plan: -cardiology following -heparin gtt stopped -continue medical management -stable Code(s): I21.4 - NON-ST ELEVATION (NSTEMI) MYOCARDIAL INFARCTION (2) End stage chronic kidney disease Assessment/Plan: -HD per nephrology -has femoral HD cathether currently -will d/w nephrology disposition planning Code(s): N18.6 - END STAGE RENAL DISEASE Z99.2 - DEPENDENCE ON RENAL DIALYSIS (3) Diabetes Assessment/Plan: -continue diabetic diet Code(s): E11.9 - TYPE 2 DIABETES MELLITUS WITHOUT COMPLICATIONS Qualifiers: Diabetes mellitus type: type 2 Diabetes mellitus complication status: with kidney complications Diabetes mellitus complication detail: with chronic kidney disease Diabetes mellitus long term care social worker insulin use: without long term care social worker use Chronic kidney disease stage: stage 5, not on chronic dialysis Qualified Code(s): E11.22 - Type 2 diabetes mellitus with diabetic chronic kidney disease; E11.22 - Type 2 diabetes mellitus with diabetic chronic kidney disease; E11.22 - Type 2 diabetes mellitus with diabetic chronic kidney disease; E11.22 - Type 2 diabetes mellitus with diabetic chronic kidney disease; E11.22 - Type 2 diabetes mellitus with diabetic chronic kidney disease; N18.1 - Chronic kidney disease, stage 1; N18.1 - Chronic kidney disease, stage 1; Z79.4 - penitentiary (current) use of insulin; Z79.4 - penitentiary (current) use of insulin; Z79.4 - penitentiary (current) use of insulin; Z79.4 - equipment operator intermodal yard (current) use of insulin (4) Hypertension Assessment/Plan: -controlled -continue hydralazine -continue metoprolol and imdur Code(s): I10 - ESSENTIAL (PRIMARY) HYPERTENSION Qualifiers: Hypertension type: essential hypertension Qualified Code(s): I10 - Essential (primary) hypertension; I10 - Essential (primary) hypertension; I10 - Essential (primary) hypertension (5) CHF (congestive heart failure) Assessment/Plan: -currently on IV lasix -cardiology note reviewed -will d/w nephrology, since now receiving HD ? need for lasix Code(s): I50.9 - HEART FAILURE, UNSPECIFIED Qualifiers: Congestive heart failure type: systolic Congestive heart failure chronicity: acute Qualified Code(s): I50.21 - Acute systolic (congestive ) heart failure; I50.21 - Acute systolic (congestive) heart failure; I50.21 - Acute systolic (congestive) heart failure; I50.21 - Acute systolic (congestive) heart failure
--- NOTE | 2017-08-04 13:05 | PN ---
Progress Note (short form) - Note Progress Note: Feels better overall. No CP or SOB. No acute events overnight. Intake & Output 08/01/17 08/02/17 08/03/17 08/04/17 23:59 23:59 23:59 23:59 Intake Total 1282 624 336 Output Total 0781 3720 200 Balance -643 -1226 136 Weight 145 lb 4.554 oz 143 lb 1.28 oz 140 lb 137 lb 8 oz Last Vital Signs Temp Pulse Resp BP Pulse Ox 98.1 F 70 18 129/75 97 08/04/17 12:25 08/04/17 12:30 08/04/17 12:30 08/04/17 12:30 08/04/17 09:46 Active Medications Acetaminophen (Tylenol -) 325 mg PO Q4H PRN PRN Reason: FEVER OR PAIN Aspirin (Ecotrin -) 81 mg PO DAILY [facility] Last Admin: 08/04/17 09:13 Dose: 81 mg Atorvastatin Calcium (Lipitor -) 80 mg PO HS [facility] Last Admin: 08/03/17 21:33 Dose: 80 mg Clopidogrel Bisulfate (Plavix -) 75 mg PO DAILY [facility] Last Admin: 08/04/17 09:13 Dose: 75 mg Furosemide (Lasix Injection -) 120 mg IVPUSH DAILY [facility] Last Admin: 08/04/17 09:14 Dose: 120 mg Hydralazine HCl (Apresoline -) 10 mg PO BID [facility] Last Admin: 08/04/17 09:13 Dose: 10 mg Isosorbide Mononitrate (Imdur -) 30 mg PO BID [facility] Last Admin: 08/04/17 09:13 Dose: 30 mg Metoprolol Tartrate (Lopressor -) 50 mg PO TID [facility] Last Admin: 08/04/17 06:30 Dose: 50 mg Constitutional: Yes: NAD Eyes: Yes: WNL HENT: Yes: WNL Neck: Yes: WNL Cardiovascular: Yes: Regular Rate and Rhythm, S1, S2 Respiratory: Yes: Rales (bibasilar crackles) Gastrointestinal: Yes: Normal Bowel Sounds, Soft Extremities: Yes: WNL Edema: No Labs: Laboratory Results - last 24 hr 08/04/17 08/04/17 06:15 06:15 WBC 7.5 RBC 3.65 L Hgb 10.4 L Hct 30.8 L MCV 84.4 MCH 28.6 MCHC 33.9 RDW 14.8 Plt Count 241 MPV 9.2 Sodium 138 Potassium 3.6 Chloride 99 Carbon Dioxide 25 Anion Gap 14 BUN 87 H D Creatinine 8.4 H* Random Glucose 109 H Calcium 8.2 L Phosphorus 7.8 H D Magnesium 2.2 Problem List - Problems (1) ACS (acute coronary syndrome) Code(s): I24.9 - ACUTE ISCHEMIC HEART DISEASE, UNSPECIFIED (2) CHF (congestive heart failure) Code(s): I50.9 - HEART FAILURE, UNSPECIFIED Qualifiers: Congestive heart failure type: systolic Congestive heart failure chronicity: acute Qualified Code(s): I50.21 - Acute systolic (congestive ) heart failure; I50.21 - Acute systolic (congestive) heart failure; I50.21 - Acute systolic (congestive) heart failure; I50.21 - Acute systolic (congestive) heart failure (3) CKD (chronic kidney disease) stage 5, 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 ml/min Code(s): N18.5 - CHRONIC KIDNEY DISEASE, STAGE 5 (4) Diabetes Code(s): E11.9 - TYPE 2 DIABETES MELLITUS WITHOUT COMPLICATIONS Qualifiers: Diabetes mellitus type: type 2 Diabetes mellitus complication status: with kidney complications Diabetes mellitus complication detail: with chronic kidney disease Diabetes mellitus terminal operations supervisor insulin use: without terminal operations supervisor use Chronic kidney disease stage: stage 5, not on chronic dialysis Qualified Code(s): E11.22 - Type 2 diabetes mellitus with diabetic chronic kidney disease; E11.22 - Type 2 diabetes mellitus with diabetic chronic kidney disease; E11.22 - Type 2 diabetes mellitus with diabetic chronic kidney disease; E11.22 - Type 2 diabetes mellitus with diabetic chronic kidney disease; E11.22 - Type 2 diabetes mellitus with diabetic chronic kidney disease; N18.1 - Chronic kidney disease, stage 1; N18.1 - Chronic kidney disease, stage 1; Z79.4 - terminal operations supervisor (current) use of insulin; Z79.4 - terminal operations supervisor (current) use of insulin; Z79.4 - correction (current) use of insulin; Z79.4 - correction (current) use of insulin (5) End stage chronic kidney disease Code(s): N18.6 - END STAGE RENAL DISEASE Z99.2 - DEPENDENCE ON RENAL DIALYSIS (6) Hypoxia Code(s): R09.02 - HYPOXEMIA (7) Non-ST elevation [place] (NSTEMI) Code(s): I21.4 - NON-ST ELEVATION (NSTEMI) MYOCARDIAL INFARCTION Assessment/Plan ASSESSMENT AND PLAN: Acute NSTEMI Acute Pulmonary Edema clinically improving Hypertensive Urgency Acute on CKD 5 DM - HD per Renal - Monitor off ABX - O2 to keep SpO2 >90% - ASA, plavix Dr Forrester
--- NOTE | 2017-08-04 16:24 | PN ---
Progress Note, Physician History of Present Illness: Pt seen and examined at bedside. He is awake and alert. He is getting HD today. He denies shortness of breath. - Current Medication List Current Medications: Active Medications Acetaminophen (Tylenol -) 325 mg PO Q4H PRN PRN Reason: FEVER OR PAIN Aspirin (Ecotrin -) 81 mg PO DAILY [facility] Last Admin: 08/04/17 09:13 Dose: 81 mg Atorvastatin Calcium (Lipitor -) 80 mg PO HS [facility] Last Admin: 08/03/17 21:33 Dose: 80 mg Clopidogrel Bisulfate (Plavix -) 75 mg PO DAILY [facility] Last Admin: 08/04/17 09:13 Dose: 75 mg Hydralazine HCl (Apresoline -) 10 mg PO BID [facility] Last Admin: 08/04/17 09:13 Dose: 10 mg Isosorbide Mononitrate (Imdur -) 30 mg PO BID [facility] Last Admin: 08/04/17 09:13 Dose: 30 mg Metoprolol Tartrate (Lopressor -) 50 mg PO TID [facility] Last Admin: 08/04/17 06:30 Dose: 50 mg - Objective Vital Signs: Vital Signs Temperature 98.1 F 08/04/17 12:25 Pulse Rate 71 08/04/17 15:10 Respiratory Rate 18 08/04/17 15:10 Blood Pressure 121/65 08/04/17 15:10 O2 Sat by Pulse Oximetry (%) 97 08/04/17 09:46 Constitutional: Yes: Calm Eyes: Yes: Conjunctiva Clear HENT: Yes: Atraumatic Neck: Yes: Supple Cardiovascular: Yes: S1, S2 Respiratory: Yes: CTA Bilaterally Gastrointestinal: Yes: Normal Bowel Sounds, Soft Genitourinary: Yes: WNL Musculoskeletal: Yes: WNL Edema: No Neurological: Yes: Oriented Psychiatric: Yes: Oriented Labs: CBC, BMP 08/04/17 06:15 08/04/17 06:15 INR, PTT INR 1.14 (0.82-1.09) 07/31/17 10:20 Problem List - Problems (1) ACS (acute coronary syndrome) Code(s): I24.9 - ACUTE ISCHEMIC HEART DISEASE, UNSPECIFIED (2) Diabetes Code(s): E11.9 - TYPE 2 DIABETES MELLITUS WITHOUT COMPLICATIONS Qualifiers: Diabetes mellitus type: type 2 Diabetes mellitus complication status: with kidney complications Diabetes mellitus complication detail: with chronic kidney disease Diabetes mellitus buttermaker insulin use: without usp use Chronic kidney disease stage: stage 5, not on chronic dialysis Qualified Code(s): E11.22 - Type 2 diabetes mellitus with diabetic chronic kidney disease; E11.22 - Type 2 diabetes mellitus with diabetic chronic kidney disease; E11.22 - Type 2 diabetes mellitus with diabetic chronic kidney disease; E11.22 - Type 2 diabetes mellitus with diabetic chronic kidney disease; E11.22 - Type 2 diabetes mellitus with diabetic chronic kidney disease; N18.1 - Chronic kidney disease, stage 1; N18.1 - Chronic kidney disease, stage 1; Z79.4 - director long term care (current) use of insulin; Z79.4 - director long term care (current) use of insulin; Z79.4 - director long term care (current) use of insulin; Z79.4 - director long term care (current) use of insulin (3) Dyslipidemia Code(s): E78.5 - HYPERLIPIDEMIA, UNSPECIFIED (4) Hypertension Code(s): I10 - ESSENTIAL (PRIMARY) HYPERTENSION Qualifiers: Hypertension type: essential hypertension Qualified Code(s): I10 - Essential (primary) hypertension; I10 - Essential (primary) hypertension; I10 - Essential (primary) hypertension (5) Non-ST elevation [place] (NSTEMI) Code(s): I21.4 - NON-ST ELEVATION (NSTEMI) MYOCARDIAL INFARCTION (6) CKD (chronic kidney disease) stage 5, 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 ml/min Code(s): N18.5 - CHRONIC KIDNEY DISEASE, STAGE 5 Assessment/Plan Current Medications Generic Name Dose Route Start Last Admin Trade Name Freq PRN Reason Stop Dose Admin Acetaminophen 325 mg 08/02/17 14:00 Tylenol - PO Q4H PRN FEVER OR PAIN Aspirin 81 mg 08/03/17 10:00 08/04/17 09:13 Ecotrin - PO 81 mg DAILY [facility] Administration Atorvastatin Calcium 80 mg 08/02/17 22:00 08/03/17 21:33 Lipitor - PO 80 mg HS [facility] Administration Clopidogrel Bisulfate 75 mg 08/03/17 10:00 08/04/17 09:13 Plavix - PO 75 mg DAILY [facility] Administration Hydralazine HCl 10 mg 08/02/17 22:00 08/04/17 09:13 Apresoline - PO 10 mg BID [facility] Administration Isosorbide Mononitrate 30 mg 08/02/17 22:00 08/04/17 09:13 Imdur - PO 30 mg BID [facility] Administration Metoprolol Tartrate 50 mg 08/02/17 14:00 08/04/17 06:30 Lopressor - PO 50 mg TID [facility] Administration Selected Entries 08/04/17 08/04/17 08/04/17 14:00 14:30 15:00 Blood Pressure 114/67 119/71 131/72 08/04/17 15:10 Blood Pressure 121/65 Impression 1. CKD 2. NSTEMI 3. HTN 4. hyperlipidemia 5. CAD Plan - HD again today - spoke to vascular, possible permacath tomorrow - cardiology follow up - lasix stopped - bicarb stopped - pt is refusing cardiac cath - cardio follow up - will follow Dr Roa
[2017-08-04] MEDS: ATORVASTATIN CA 80 MG TABLET (FP) PO SCH (21:19)
[2017-08-05] MEDS: METOPROLOL TARTRATE 25 MG TABLET (FP) PO SCH (06:30)
[2017-08-05] MEDS ORDERED: HEPARIN NA (PORCINE) 5,000 UNITS/ML 1ML VIAL ONE (07:12)
[2017-08-05] MEDS ORDERED: LIDOCAINE HCL 1%, 10 MG/ML (20ML VIAL) ONE (07:12)
[2017-08-05 07:17] LABS: BASOPHIL 0.7 % (0-2.0); EOSINOPHIL 6.4 % (0-4.5); MCH 28.9 pg (25.7-33.7); MCHC 33.6 g/dl (32.0-35.9); MEAN PLT VOLUME 9.1 fl (7.5-11.1); NEUTROPHILS 59.3 % (42.8-82.8); PLATELET COUNT 244 K/MM3 (134-434); RDW 15.1 % (11.9-15.9); WHITE BLOOD COUNT 7.5 K/mm3 (4.0-10.0)
[2017-08-05] MEDS ORDERED: MIDAZOLAM HCL 2 MG/2 ML SINGLE DOSE VIAL ONE (07:34)
[2017-08-05 07:36] LABS: ANION GAP 13 (8-16); CALCIUM 8.2 mg/dL (8.5-10.1); CO2 27 mmol/L (21-32); GLUCOSE,RANDOM 110 mg/dL (74-106); MAGNESIUM 2.2 mg/dL (1.8-2.4); PHOSPHOROUS 7.5 mg/dL (2.5-4.9)
[2017-08-05] MEDS ORDERED: PROPOFOL 20 ML ONE (07:47)
[2017-08-05] MEDS ORDERED: ceFAZolin SODIUM 1 GM VIAL ONE (07:50)
[2017-08-05] MEDS ORDERED: LIDOCAINE HCL 1%, 10 MG/ML (20ML VIAL) INF ONE (07:55)
--- NOTE | 2017-08-05 08:19 | OP ---
Operative Note - Note: Operative Date: 08/05/17 Pre-Operative Diagnosis: ESRD on HD Operation: Placement permacath. Removal Shiley Implants: 32 cm Permacath Post-Operative Diagnosis: Same as Pre-op Surgeon: Catarino Ribera Anesthesiologist/SUPERVISOR WOUND: Judi Garcia Anesthesia: Fractional
[2017-08-05] MEDS ORDERED: ACETAMINOPHEN 325 MG TABLET (FP) PO PRN (08:25)
--- NOTE | 2017-08-05 08:39 | OP ---
DATE OF OPERATION: 08/05/2017 SURGEON: Catarino Davidson MD PROCEDURE: Placement of PermCath and removal of Shiley. PREOPERATIVE DIAGNOSIS: End-stage renal disease, on hemodialysis. POSTOPERATIVE DIAGNOSIS: End-stage renal disease, on hemodialysis. ANESTHESIA: Fractional. ANESTHESIOLOGIST: Judi Garcia CRNA OPERATIVE PROCEDURE: Following routine patient identification, side and site verification, intravenous sedation was established. The left neck and chest were prepped with ChloraPrep. The left internal jugular vein was identified with duplex imaging. It was patent and had normal flow pattern. One percent Xylocaine was infiltrated in the skin lateral to the vein, and the vein was then cannulated under ultrasound guidance using a Micropuncture needle. A wire was passed proximally into the superior vena cava under fluoroscopic guidance. The needle was exchanged for a 5-Cameroonian catheter. The wire was exchanged for a J-tip guidewire, which was advanced through the right atrium into the inferior vena cava. Additional Xylocaine was infiltrated in the chest wall and a stab wound made. A 32-cm length PermCath was passed with a tunneler from chest to neck. The tract around the wire was then dilated under fluoroscopic guidance and the introducer placed over the wire into the superior vena cava. The wire and the dilator were removed, and the PermCath was passed through the introducer and positioned in the right atrium. The introducer was peeled away, leaving the catheter tip in place. Each lumen was aspirated for blood and flushed with saline and heparin solution. The catheter was filled with heparin-saline solution, and was then sutured to the skin at the exit site with 3-0 nylon. The neck incision was closed with a subcuticular suture of 3-0 Vicryl. A sterile dressing was applied. The right groin was exposed and the Shiley catheter was removed after cutting the suture holding it in place. Pressure was applied until bleeding ceased, and a sterile dressing applied. The patient was transported to the recovery room in stable condition. CATARINO DAVIDSON M.D. [id number]
[2017-08-05 09:37] LABS: CREATININE 7.8 mg/dL (0.7-1.3)
--- NOTE | 2017-08-05 11:13 | PN ---
Progress Note (short form) - Note Progress Note: Progress Note: CC: CP/nstemi S: No recurrence of chest discomfort. no sob, is comfortable and out of bed to chair. no palps, dizziness. had permacath placed this AM. Current Medications Generic Name Dose Route Start Last Admin Trade Name Freq PRN Reason Stop Dose Admin Acetaminophen 325 mg 08/05/17 08:25 Tylenol - PO Q4H PRN FEVER OR PAIN Aspirin 81 mg 08/05/17 10:00 Ecotrin - PO DAILY MAU Atorvastatin Calcium 80 mg 08/05/17 22:00 Lipitor - PO HS MAU Clopidogrel Bisulfate 75 mg 08/05/17 10:00 Plavix - PO DAILY MAU Hydralazine HCl 10 mg 08/05/17 10:00 Apresoline - PO BID MAU Isosorbide Mononitrate 30 mg 08/05/17 10:00 Imdur - PO BID MAU Metoprolol Tartrate 50 mg 08/05/17 14:00 Lopressor - PO TID MAU Vital Signs Period Temp Pulse Resp BP Sys/Rausch Pulse Ox Last 24 Hr 97.8 F-98.6 F 58-73 12-20 98-139/50-80 93-99 nad, calm jvd increased, neck supple cta bl, nl effort rrr nl s1, s2. no mrg. displaced pmi + bs soft nt nd ext without e/c/c aaox3 no jaundice, diaphoresis. CBC, BMP 08/05/17 05:10 08/05/17 05:10 EKG 07/31 #1: nsr, 99 bpm. lad. prolonged qt. New downsloping STD in the anterolateral leads. EKG 07/31 #2: nsr, 85 bpm. lad. prolonged qt. anterolateral changes still present but much improved. tele: sr, occ pvcs echo 10/2016: nl lv/rv, no sig valve path mibi 10/2016: nl mpi, nl lvef a/p: 77 yo with h/o cad (s/p mild mi 1990 per pt tx with cath/angioplasty), htn , hl, carotid dz s/p left cea 02/2017, ESRD s/p AV fisutula last month in anticipation of HD initiation, htn, hld, dm here with cp/nstemi. CP/nstemi/known cad - Initial EKG borderline tachycardic with new ekg changes (improved on follow up ekg after heart rate slowed). - 07/31: ACS protocol: asa, plavix, heparin, statin. nitroglycerin to keep patient cp free and sys bp < 140. Can add metoprolol tartrate 25 mg or 50 mg ( depending on bp) TID to maintain HR < 70. s/p lasix 120 mg x 1 today with good uop response. Would repeat dose tomorrow. Can use bipap if needed. - 08/01: ACS protocol, day 2 of heparin, con't. Echo today to assess EF and evaluate for ischemic MR. Will uptitrate lopressor for goal HR < 70. Begin weaning nitro drip. Addition of anti-anginal/anti-hypertensive depending on EF. Con't lasix 120 mg IV daily for pulmonary edema. - discussed recommendation for cardiac catheterization with patient and family. Patient states he would like to be dnr/dni. Counseled patient on the need to temporarily reverse dnr/dni jordy-procedure in order to get cardiac catheterization and patient declining. --> con't medical management of nstemi per patient preference. If EF is normal and no ischemic MR than not unreasonable to pursue conservative strategy. - 08/02-: ACS protocol completed. Pt remains cp free. Echo with only mild LV dysfunction, no significant MR. Pursuing medical mgm't of nstemi per patient preference. Cont dapt. htn - con't current regimen, HR/bp reasonable overall control on metoprolol, imdur , hydralazine. Hld - con't statin s/p L CEA 02/2017 - no neurologic sx's. anti-platelets, statin as above ESRD s/p AV fistula last month in anticipation of HD initiation (not yet mature) - cont hd per renal cardiac franz stable for dc
--- NOTE | 2017-08-05 11:42 | PN ---
Progress Note, Physician History of Present Illness: PULMONARY ALERT,NAD,-CP,-SOB - Current Medication List Current Medications: Active Medications Acetaminophen (Tylenol -) 325 mg PO Q4H PRN PRN Reason: FEVER OR PAIN Aspirin (Ecotrin -) 81 mg PO DAILY [facility]U Atorvastatin Calcium (Lipitor -) 80 mg PO HS MAU Clopidogrel Bisulfate (Plavix -) 75 mg PO DAILY [facility] Hydralazine HCl (Apresoline -) 10 mg PO BID [facility] Isosorbide Mononitrate (Imdur -) 30 mg PO BID [facility] Metoprolol Tartrate (Lopressor -) 50 mg PO TID MAU - Objective Vital Signs: Vital Signs Temperature 97.8 F 08/05/17 09:50 Pulse Rate 63 08/05/17 10:43 Respiratory Rate 18 08/05/17 09:50 Blood Pressure 129/59 08/05/17 09:50 O2 Sat by Pulse Oximetry (%) 93 L 08/05/17 10:43 Constitutional: Yes: Well Nourished, Calm Eyes: Yes: WNL, Other Neck: Yes: WNL Cardiovascular: Yes: Regular Rate and Rhythm, S1, S2 Respiratory: Yes: Rales (BIBASILAR CRACKLES) Gastrointestinal: Yes: Normal Bowel Sounds, Soft Extremities: Yes: WNL Edema: No Labs: CBC, BMP 08/05/17 05:10 08/05/17 05:10 INR, PTT INR 1.14 (0.82-1.09) 07/31/17 10:20 - ....Imaging Chest X-ray: Report Reviewed, Image Reviewed (MILD CONGESTION) Problem List - Problems (1) ACS (acute coronary syndrome) Code(s): I24.9 - ACUTE ISCHEMIC HEART DISEASE, UNSPECIFIED (2) CHF (congestive heart failure) Code(s): I50.9 - HEART FAILURE, UNSPECIFIED Qualifiers: Congestive heart failure type: systolic Congestive heart failure chronicity: acute Qualified Code(s): I50.21 - Acute systolic (congestive ) heart failure; I50.21 - Acute systolic (congestive) heart failure; I50.21 - Acute systolic (congestive) heart failure; I50.21 - Acute systolic (congestive) heart failure (3) CKD (chronic kidney disease) stage 5, 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 ml/min Code(s): N18.5 - CHRONIC KIDNEY DISEASE, STAGE 5 (4) Diabetes Code(s): E11.9 - TYPE 2 DIABETES MELLITUS WITHOUT COMPLICATIONS Qualifiers: Diabetes mellitus type: type 2 Diabetes mellitus complication status: with kidney complications Diabetes mellitus complication detail: with chronic kidney disease Diabetes mellitus group home insulin use: without termite control representative use Chronic kidney disease stage: stage 5, not on chronic dialysis Qualified Code(s): E11.22 - Type 2 diabetes mellitus with diabetic chronic kidney disease; E11.22 - Type 2 diabetes mellitus with diabetic chronic kidney disease; E11.22 - Type 2 diabetes mellitus with diabetic chronic kidney disease; E11.22 - Type 2 diabetes mellitus with diabetic chronic kidney disease; E11.22 - Type 2 diabetes mellitus with diabetic chronic kidney disease; N18.1 - Chronic kidney disease, stage 1; N18.1 - Chronic kidney disease, stage 1; Z79.4 - residential (current) use of insulin; Z79.4 - residential (current) use of insulin; Z79.4 - residential (current) use of insulin; Z79.4 - residential (current) use of insulin (5) End stage chronic kidney disease Code(s): N18.6 - END STAGE RENAL DISEASE Z99.2 - DEPENDENCE ON RENAL DIALYSIS (6) Hypoxia Code(s): R09.02 - HYPOXEMIA (7) Non-ST elevation IN (NSTEMI) Code(s): I21.4 - NON-ST ELEVATION (NSTEMI) MYOCARDIAL INFARCTION Assessment/Plan ASSESSMENT AND PLAN: Acute NSTEMI Acute Pulmonary Edema clinically improving Hypertensive Urgency Acute on CKD 5 DM - monitor urine output, creatinine - monitor CXR - O2 to keep SpO2 >90% - ASA, plavix - HD per renal DR LOUISE
--- NOTE | 2017-08-05 11:42 | PN ---
Progress Note, Physician Chief Complaint: Mr Araya is without complaint today. No cp, sob, n/v. s/p dialysis catheter placement. - Current Medication List Current Medications: Active Medications Acetaminophen (Tylenol -) 325 mg PO Q4H PRN PRN Reason: FEVER OR PAIN Aspirin (Ecotrin -) 81 mg PO DAILY [facility] Atorvastatin Calcium (Lipitor -) 80 mg PO HS MAU Clopidogrel Bisulfate (Plavix -) 75 mg PO DAILY [facility] Hydralazine HCl (Apresoline -) 10 mg PO BID MAU Isosorbide Mononitrate (Imdur -) 30 mg PO BID [facility] Metoprolol Tartrate (Lopressor -) 50 mg PO TID MAU - Objective Vital Signs: Vital Signs Temperature 36.6 C 08/05/17 09:50 Pulse Rate 63 08/05/17 10:43 Respiratory Rate 18 08/05/17 09:50 Blood Pressure 129/59 08/05/17 09:50 O2 Sat by Pulse Oximetry (%) 93 L 08/05/17 10:43 Constitutional: Yes: Well Nourished, No Distress, Calm Cardiovascular: Yes: Regular Rate and Rhythm. No: Gallop, Murmur, Rub Respiratory: Yes: Regular, CTA Bilaterally. No: Rales, Rhonchi, Wheezes Gastrointestinal: Yes: Normal Bowel Sounds, Soft. No: Distention, Tenderness Extremities: Yes: WNL Edema: No Labs: CBC, BMP 08/05/17 05:10 08/05/17 05:10 INR, PTT INR 1.14 (0.82-1.09) 07/31/17 10:20 Problem List - Problems (1) Non-ST elevation MA (NSTEMI) Code(s): I21.4 - NON-ST ELEVATION (NSTEMI) MYOCARDIAL INFARCTION (2) End stage chronic kidney disease Code(s): N18.6 - END STAGE RENAL DISEASE Z99.2 - DEPENDENCE ON RENAL DIALYSIS (3) Diabetes Code(s): E11.9 - TYPE 2 DIABETES MELLITUS WITHOUT COMPLICATIONS Qualifiers: Diabetes mellitus type: type 2 Diabetes mellitus complication status: with kidney complications Diabetes mellitus complication detail: with chronic kidney disease Diabetes mellitus skilled nursing insulin use: without termite treater use Chronic kidney disease stage: stage 5, not on chronic dialysis Qualified Code(s): E11.22 - Type 2 diabetes mellitus with diabetic chronic kidney disease; E11.22 - Type 2 diabetes mellitus with diabetic chronic kidney disease; E11.22 - Type 2 diabetes mellitus with diabetic chronic kidney disease; E11.22 - Type 2 diabetes mellitus with diabetic chronic kidney disease; E11.22 - Type 2 diabetes mellitus with diabetic chronic kidney disease; N18.1 - Chronic kidney disease, stage 1; N18.1 - Chronic kidney disease, stage 1; Z79.4 - correction (current) use of insulin; Z79.4 - correction (current) use of insulin; Z79.4 - petroleum 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; Z79.4 - correction (current) use of insulin (4) Hypertension Code(s): I10 - ESSENTIAL (PRIMARY) HYPERTENSION Qualifiers: Hypertension type: essential hypertension Qualified Code(s): I10 - Essential (primary) hypertension; I10 - Essential (primary) hypertension; I10 - Essential (primary) hypertension (5) CHF (congestive heart failure) Code(s): I50.9 - HEART FAILURE, UNSPECIFIED Qualifiers: Congestive heart failure type: systolic Congestive heart failure chronicity: acute Qualified Code(s): I50.21 - Acute systolic (congestive ) heart failure; I50.21 - Acute systolic (congestive) heart failure; I50.21 - Acute systolic (congestive) heart failure; I50.21 - Acute systolic (congestive) heart failure Assessment/Plan (1) Non-ST elevation MA (NSTEMI) Assessment/Plan: -cardiology following -heparin gtt stopped -continue medical management -stable Code(s): I21.4 - NON-ST ELEVATION (NSTEMI) MYOCARDIAL INFARCTION (2) End stage chronic kidney disease Assessment/Plan: -HD per nephrology -s/p catheter placement -plan for discharge tomorrow after HD performed Code(s): N18.6 - END STAGE RENAL DISEASE Z99.2 - DEPENDENCE ON RENAL DIALYSIS (3) Diabetes Assessment/Plan: -continue diabetic diet Code(s): E11.9 - TYPE 2 DIABETES MELLITUS WITHOUT COMPLICATIONS Qualifiers: Diabetes mellitus type: type 2 Diabetes mellitus complication status: with kidney complications Diabetes mellitus complication detail: with chronic kidney disease Diabetes mellitus skilled nursing insulin use: without termite treater use Chronic kidney disease stage: stage 5, not on chronic dialysis Qualified Code(s): E11.22 - Type 2 diabetes mellitus with diabetic chronic kidney disease; E11.22 - Type 2 diabetes mellitus with diabetic chronic kidney disease; E11.22 - Type 2 diabetes mellitus with diabetic chronic kidney disease; E11.22 - Type 2 diabetes mellitus with diabetic chronic kidney disease; E11.22 - Type 2 diabetes mellitus with diabetic chronic kidney disease; N18.1 - Chronic kidney disease, stage 1; N18.1 - Chronic kidney disease, stage 1; Z79.4 - petroleum 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; Z79.4 - correction (current) use of insulin; 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 - petroleum 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; Z79.4 - correction (current) use of insulin (4) Hypertension Assessment/Plan: -controlled -continue hydralazine -continue metoprolol and imdur Code(s): I10 - ESSENTIAL (PRIMARY) HYPERTENSION Qualifiers: Hypertension type: essential hypertension Qualified Code(s): I10 - Essential (primary) hypertension; I10 - Essential (primary) hypertension; I10 - Essential (primary) hypertension (5) CHF (congestive heart failure) Assessment/Plan: -controlled Code(s): I50.9 - HEART FAILURE, UNSPECIFIED Qualifiers: Congestive heart failure type: systolic Congestive heart failure chronicity: acute Qualified Code(s): I50.21 - Acute systolic (congestive ) heart failure; I50.21 - Acute systolic (congestive) heart failure; I50.21 - Acute systolic (congestive) heart failure; I50.21 - Acute systolic (congestive) heart failure Dispo -d/c tomorrow after HD
--- NOTE | 2017-08-05 12:33 | SPEC ---
DATE OF OPERATION: DATE OF DICTATION: 08/03/2017 OPERATION: Placement of percutaneous dialysis catheter. SURGEON: Catarino Davidson M.D. ANESTHESIA: Fractional PROCEDURE: Following intravenous sedation, the patient was placed in the Trendelenburg position. The neck and chest were prepped with Betadine solution. 1% Xylocaine was infiltrated subcutaneously in the neck and the internal jugular vein cannulated with a fine needle. A fine flexible wire was passed proximally under fluoroscopic guidance into the superior vena cava. The tract around the wire was dilated and the wire was exchanged for a larger diameter wire. Additional Xylocaine was infiltrated on the chest wall and a stab wound made beneath the clavicle. With the aid of a tunneler, the catheter was passed from chest to neck to exit next the wire. The tract around the wire was again dilated and the introducer placed into the superior vena cava. The wire and the dilator were removed. The Perma-Cath was then passed through the introducer and the tips positioned in the right atrium. The introducer was peeled away, leaving the catheter in place. Each lumen was aspirated for blood and flushed with saline and Heparin solution. The neck wound was closed with a subcuticular suture of 4-0 Vicryl and the catheter was sutured to the skin at the exit site with 3-0 Nylon. Sterile dressings were applied and the patient was taken to the recovery room for a chest x-ray. CATARINO DAVIDSON M.D. HARSHA/[id number]
[2017-08-05] MEDS: CLOPIDOGREL BISULFATE 75 MG TABLET (FP) PO SCH (13:23)
[2017-08-05] MEDS: hydrALAZINE HCL 10 MG TABLET PO SCH ×2 (13:23→21:18)
[2017-08-05] MEDS: POLYETHYLENE GLYCOL 3350 119 GM BTL PO SCH ×2 (13:23→21:18)
[2017-08-05] MEDS: ASPIRIN COATED 81 MG TABLET.EC PO SCH (13:23)
[2017-08-05] MEDS: DOCUSATE SODIUM 100 MG CAPSULE (FP) PO SCH ×2 (13:23→21:18)
[2017-08-05] MEDS: ISOSORBIDE MONONITRATE 30 MG TAB.SR.24H (FP) PO SCH ×2 (13:23→21:18)
[2017-08-05] MEDS: METOPROLOL TARTRATE 50 MG TABLET (FP) PO SCH ×3 (13:24→21:18)
--- NOTE | 2017-08-05 14:42 | PN ---
Progress Note, Physician History of Present Illness: Pt seen and examined at bedside. He is out of bed to chair. He denies shortness of breath. - Current Medication List Current Medications: Active Medications Acetaminophen (Tylenol -) 325 mg PO Q4H PRN PRN Reason: FEVER OR PAIN Aspirin (Ecotrin -) 81 mg PO DAILY [facility] Last Admin: 08/05/17 13:23 Dose: 81 mg Atorvastatin Calcium (Lipitor -) 80 mg PO [facility] Clopidogrel Bisulfate (Plavix -) 75 mg PO DAILY [facility] Last Admin: 08/05/17 13:23 Dose: 75 mg Docusate Sodium (Colace -) 100 mg PO BID [facility] Last Admin: 08/05/17 13:23 Dose: 100 mg Hydralazine HCl (Apresoline -) 10 mg PO BID [facility] Last Admin: 08/05/17 13:23 Dose: 10 mg Isosorbide Mononitrate (Imdur -) 30 mg PO BID [facility] Last Admin: 08/05/17 13:23 Dose: 30 mg Metoprolol Tartrate (Lopressor -) 50 mg PO TID [facility] Last Admin: 08/05/17 13:43 Dose: 50 mg Polyethylene Glycol (Miralax (For Daily Use) -) 17 gm PO BID [facility] Last Admin: 08/05/17 13:23 Dose: 17 gm - Objective Vital Signs: Vital Signs Temperature 97.5 F L 08/05/17 14:00 Pulse Rate 65 08/05/17 14:00 Respiratory Rate 20 08/05/17 14:00 Blood Pressure 137/60 08/05/17 14:00 O2 Sat by Pulse Oximetry (%) 93 L 08/05/17 10:43 Constitutional: Yes: Calm Eyes: Yes: Conjunctiva Clear HENT: Yes: Atraumatic Neck: Yes: Supple Cardiovascular: Yes: S1, S2 Respiratory: Yes: CTA Bilaterally Gastrointestinal: Yes: Soft Genitourinary: Yes: WNL Musculoskeletal: Yes: WNL Edema: No Neurological: Yes: Oriented Psychiatric: Yes: Oriented Labs: CBC, BMP 08/05/17 05:10 08/05/17 05:10 INR, PTT INR 1.14 (0.82-1.09) 07/31/17 10:20 Problem List - Problems (1) ACS (acute coronary syndrome) Code(s): I24.9 - ACUTE ISCHEMIC HEART DISEASE, UNSPECIFIED (2) Diabetes Code(s): E11.9 - TYPE 2 DIABETES MELLITUS WITHOUT COMPLICATIONS Qualifiers: Diabetes mellitus type: type 2 Diabetes mellitus complication status: with kidney complications Diabetes mellitus complication detail: with chronic kidney disease Diabetes mellitus buttermaker insulin use: without buttermaker use Chronic kidney disease stage: stage 5, not on chronic dialysis Qualified Code(s): E11.22 - Type 2 diabetes mellitus with diabetic chronic kidney disease; E11.22 - Type 2 diabetes mellitus with diabetic chronic kidney disease; E11.22 - Type 2 diabetes mellitus with diabetic chronic kidney disease; E11.22 - Type 2 diabetes mellitus with diabetic chronic kidney disease; E11.22 - Type 2 diabetes mellitus with diabetic chronic kidney disease; N18.1 - Chronic kidney disease, stage 1; N18.1 - Chronic kidney disease, stage 1; Z79.4 - halfway (current) use of insulin; Z79.4 - intermediate card tender (current) use of insulin; Z79.4 - intermediate card tender (current) use of insulin; Z79.4 - halfway (current) use of insulin (3) Dyslipidemia Code(s): E78.5 - HYPERLIPIDEMIA, UNSPECIFIED (4) Hypertension Code(s): I10 - ESSENTIAL (PRIMARY) HYPERTENSION Qualifiers: Hypertension type: essential hypertension Qualified Code(s): I10 - Essential (primary) hypertension; I10 - Essential (primary) hypertension; I10 - Essential (primary) hypertension (5) Non-ST elevation [place] (NSTEMI) Code(s): I21.4 - NON-ST ELEVATION (NSTEMI) MYOCARDIAL INFARCTION (6) CKD (chronic kidney disease) stage 5, 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 ml/min Code(s): N18.5 - CHRONIC KIDNEY DISEASE, STAGE 5 Assessment/Plan Current Medications Generic Name Dose Route Start Last Admin Trade Name Freq PRN Reason Stop Dose Admin Acetaminophen 325 mg 08/05/17 08:25 Tylenol - PO Q4H PRN FEVER OR PAIN Aspirin 81 mg 08/05/17 10:00 08/05/17 13:23 Ecotrin - PO 81 mg DAILY [facility] Administration Atorvastatin Calcium 80 mg 08/05/17 22:00 Lipitor - PO HS [facility] Clopidogrel Bisulfate 75 mg 08/05/17 10:00 08/05/17 13:23 Plavix - PO 75 mg DAILY [facility] Administration Docusate Sodium 100 mg 08/05/17 11:45 08/05/17 13:23 Colace - PO 100 mg BID [facility]U Administration Hydralazine HCl 10 mg 08/05/17 10:00 08/05/17 13:23 Apresoline - PO 10 mg BID [facility]U Administration Isosorbide Mononitrate 30 mg 08/05/17 10:00 08/05/17 13:23 Imdur - PO 30 mg BID [facility]U Administration Metoprolol Tartrate 50 mg 08/05/17 14:00 08/05/17 13:43 Lopressor - PO 50 mg TID MAU Administration Polyethylene Glycol 17 gm 08/05/17 11:45 08/05/17 13:23 Miralax (For Daily Use) - PO 17 gm BID [facility]U Administration Laboratory Tests 07/07/17 07/07/17 07/07/17 11:59 11:59 11:59 Hep Bs Antigen Negative Hep Bs Ab Concentration Non reactive Hep B Core Ab Interpret Negative Hepatitis C Antibody <0.1 Impression 1. ESRD 2. NSTEMI 3. HTN 4. hyperlipidemia 5. CAD Plan - will arrange for HD in am - pt to go for HD on Tuesday in [facility] - repeat hep panel stat - pt is refusing cardiac cath - cardio follow up - will follow Dr Roa
[2017-08-05] MEDS ORDERED: ATORVASTATIN CA 80 MG TABLET (FP) PO SCH (22:00)
[2017-08-06] MEDS: METOPROLOL TARTRATE 50 MG TABLET (FP) PO SCH (06:02)
[2017-08-06 07:38] LABS: MCH 28.4 pg (25.7-33.7); MCHC 33.1 g/dl (32.0-35.9); MEAN CELL VOLUME 85.9 fl (80-96); MEAN PLT VOLUME 9.5 fl (7.5-11.1); PLATELET COUNT 246 K/MM3 (134-434); RDW 15.1 % (11.9-15.9); WHITE BLOOD COUNT 8.7 K/mm3 (4.0-10.0)
[2017-08-06 08:14] LABS: ANION GAP 13 (8-16); CALCIUM 8.5 mg/dL (8.5-10.1); CO2 26 mmol/L (21-32); GLUCOSE,RANDOM 124 mg/dL (74-106); MAGNESIUM 2.3 mg/dL (1.8-2.4); PHOSPHOROUS 8.1 mg/dL (2.5-4.9)
[2017-08-06 08:55] LABS: CREATININE 9.7 mg/dL (0.7-1.3)
--- NOTE | 2017-08-06 09:26 | DS ---
Physical Exam: SUBJECTIVE: Patient seen and examined OBJECTIVE: Vital Signs Period Temp Pulse Resp BP Sys/Rausch Pulse Ox Last 24 Hr 97.5 F-98.3 F 58-72 18-20 122-142/59-88 93-99 PHYSICAL EXAM GENERAL: The patient is awake, alert, and fully oriented, in no acute distress. HEAD: Normal with no signs of trauma. EYES: PERRL, extraocular movements intact, sclera anicteric, conjunctiva clear. ENT: Ears normal, nares patent, oropharynx clear without exudates, moist mucous membranes. NECK: Trachea midline, full range of motion, supple. LUNGS: Breath sounds equal, clear to auscultation bilaterally, no wheezes, no crackles, no accessory muscle use. HEART: Regular rate and rhythm, S1, S2 without murmur, rub or gallop. ABDOMEN: Soft, nontender, nondistended, normoactive bowel sounds, no guarding, no rebound, no hepatosplenomegaly, no masses. EXTREMITIES: 2+ pulses, warm, well-perfused, no edema. NEUROLOGICAL: Cranial nerves II through XII grossly intact. Normal speech, gait not observed. PSYCH: Normal mood, normal affect. SKIN: Warm, dry, normal turgor, no rashes or lesions noted. LABS Laboratory Results - last 24 hr 08/05/17 08/06/17 08/06/17 05:10 05:18 05:18 WBC 8.7 RBC 3.46 L Hgb 9.9 L Hct 29.8 L MCV 85.9 MCH 28.4 MCHC 33.1 RDW 15.1 Plt Count 246 MPV 9.5 Sodium 139 136 Potassium 3.8 4.0 Chloride 99 97 L Carbon Dioxide 27 26 Anion Gap 13 13 BUN 75 H 101 H D Creatinine 7.8 H* 9.7 H* D Random Glucose 110 H 124 H Calcium 8.2 L 8.5 Phosphorus 7.5 H 8.1 H Magnesium 2.2 2.3 HOSPITAL COURSE: Date of Admission:07/31/17 Date of Sign Out AMA: 08/06/17 (1) Non-ST elevation [place] (NSTEMI) Assessment/Plan: -+ troponins, peaked 6.57 -continue metoprolol, Lipitor, ASA, Plavix Code(s): I21.4 - NON-ST ELEVATION (NSTEMI) MYOCARDIAL INFARCTION (2) End stage chronic kidney disease Assessment/Plan: -HD per nephrology -s/p catheter placement -patient refused to wait for HD today, signed out AMA Code(s): N18.6 - END STAGE RENAL DISEASE Z99.2 - DEPENDENCE ON RENAL DIALYSIS (3) Diabetes Assessment/Plan: -diabetic diet Code(s): E11.9 - TYPE 2 DIABETES MELLITUS WITHOUT COMPLICATIONS Qualifiers: Diabetes mellitus type: type 2 Diabetes mellitus complication status: with kidney complications Diabetes mellitus complication detail: with chronic kidney disease Diabetes mellitus buttermilk drier operator insulin use: without chcf use Chronic kidney disease stage: stage 5, not on chronic dialysis Qualified Code(s): E11.22 - Type 2 diabetes mellitus with diabetic chronic kidney disease; E11.22 - Type 2 diabetes mellitus with diabetic chronic kidney disease; E11.22 - Type 2 diabetes mellitus with diabetic chronic kidney disease; E11.22 - Type 2 diabetes mellitus with diabetic chronic kidney disease; E11.22 - Type 2 diabetes mellitus with diabetic chronic kidney disease; N18.1 - Chronic kidney disease, stage 1; N18.1 - Chronic kidney disease, stage 1; Z79.4 - detention (current) use of insulin; Z79.4 - terminal makeup operator (current) use of insulin; Z79.4 - terminal makeup operator (current) use of insulin; Z79.4 - detention (current) use of insulin (4) Hypertension Assessment/Plan: -BP controlled -treated with metoprolol, hydralazine, imdur Code(s): I10 - ESSENTIAL (PRIMARY) HYPERTENSION Qualifiers: Hypertension type: essential hypertension Qualified Code(s): I10 - Essential (primary) hypertension; I10 - Essential (primary) hypertension; I10 - Essential (primary) hypertension (5) CHF (congestive heart failure) Assessment/Plan: -controlled Code(s): I50.9 - HEART FAILURE, UNSPECIFIED Qualifiers: Congestive heart failure type: systolic Congestive heart failure chronicity: acute Qualified Code(s): I50.21 - Acute systolic (congestive ) heart failure; I50.21 - Acute systolic (congestive) heart failure; I50.21 - Acute systolic (congestive) heart failure; I50.21 - Acute systolic (congestive) heart failure Patient's dialysis treatment was scheduled for 7:30am. He was called at 9:00am. He refused to go stating he had been lied to. Discussed situation at length with the patient, advised him dialysis was available and failing to receive treatment could be life-threatening. He refused, stating that this provider cared more than he did and he would not be lied to. Patient was alert, oriented , and capable of making medical decisions on his own behalf. Minutes to complete discharge: 35 Discharge Summary Reason For Visit: DIABETES/NSTEMI Current Active Problems ACS (acute coronary syndrome) (Acute) CHF (congestive heart failure) (Acute) CKD (chronic kidney disease) stage 5, 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 ml/min (Acute) Diabetes (Acute) Dyslipidemia (Acute) End stage chronic kidney disease (Acute) Hypertension (Acute) Hypoxia (Acute) Non-ST elevation [place] (NSTEMI) (Acute) Volume overload (Acute) Condition: Improved - Instructions Diet, Activity, Other Instructions: YOU ARE SIGNING OUT AGAINST MEDICAL ADVICE. YOUR DIALYSIS TREATMENT WAS DELAYED SEVERAL HOURS TODAY, BUT IS AVAILABLE TO YOU NOW AND WILL CONTINUE TO BE AVAILABLE TO YOU. YOU INDICATED YOU WOULD NOT STAY. YOU WERE ADVISED THAT FAILURE TO GET DIALYSIS TODAY COULD RESULT IN ELECTROLYTES DISTURBANCES, HEART ATTACK, . YOU SAID YOU UNDERSTOOD BUT WANTED TO GO HOME ANYWAY BECAUSE YOU DON'T LIKE TO BE LIED TO. YOU HAVE A SCHEDULED DIALYSIS TREATMENT ON AUGUST 09 AT [facility] [place]. YOU SHOULD CALL TO VERIFY THE TIME. The following medication and prescription changes have been made during your hospital stay: 1. Amlodipine was stopped; do not take this medicine; 2. Plavix was started; a prescription has been sent to your pharmacy, take as directed; 3. Hydralazine was started, a prescription has been sent to your pharmacy, take as directed; 4. Metoprolol was changed to three times daily; a prescription has been sent to your pharmacy, take as directed. You should followup with Dr. Subramanian within one week of your discharge. Return to the emergency department for any new or worsening symptoms. Referrals: Shahriar Subramanian MD [Staff Physician] - Disposition: AGAINST MEDICAL ADVICE - Home Medications Comprehensive Discharge Medication List: Ambulatory Orders Aspirin [Aspir 81] 81 mg PO DAILY 10/26/16 Isosorbide Mononitrate [Imdur -] 60 mg PO DAILY 07/07/17 Simvastatin [Zocor -] 20 mg PO HS 07/07/17 Cholecalciferol (Vitamin D3) [Vitamin D -] 400 unit PO DAILY 07/31/17 Clopidogrel Bisulfate [Plavix -] 75 mg PO DAILY #30 tablet 08/06/17 Clopidogrel Bisulfate [Plavix -] 75 mg PO DAILY #30 tablet 08/06/17 Hydralazine HCl [Apresoline -] 10 mg PO BID #60 tablet 08/06/17 Metoprolol Tartrate [Lopressor -] 50 mg PO TID #90 tablet 08/06/17 This patient is new to me today: Yes Date on this admission: 08/06/17 Emergency Visit: Yes ED Registration Date: 07/31/17 Care time: The patient presented to the Emergency Department on the above date and was hospitalized for further evaluation of their emergent condition. Critical Care patient: No - Discharge Referral Referred to [facility] No
--- NOTE | 2017-08-06 09:33 | PN ---
Progress Note (short form) - Note Progress Note: Progress Note: CC: CP/nstemi S: No recurrence of chest discomfort. no sob, is comfortable and out of bed to chair. no palps, dizziness. Current Medications Generic Name Dose Route Start Last Admin Trade Name Freq PRN Reason Stop Dose Admin Acetaminophen 325 mg 08/05/17 08:25 Tylenol - PO Q4H PRN FEVER OR PAIN Aspirin 81 mg 08/05/17 10:00 08/05/17 13:23 Ecotrin - PO 81 mg DAILY MAU Administration Atorvastatin Calcium 80 mg 08/05/17 22:00 08/05/17 21:18 Lipitor - PO 80 mg HS MAU Administration Clopidogrel Bisulfate 75 mg 08/05/17 10:00 08/05/17 13:23 Plavix - PO 75 mg DAILY MAU Administration Docusate Sodium 100 mg 08/05/17 11:45 08/05/17 21:18 Colace - PO 100 mg BID MAU Administration Hydralazine HCl 10 mg 08/05/17 10:00 08/05/17 21:18 Apresoline - PO 10 mg BID MAU Administration Isosorbide Mononitrate 30 mg 08/05/17 10:00 08/05/17 21:18 Imdur - PO 30 mg BID MAU Administration Metoprolol Tartrate 50 mg 08/05/17 14:00 08/06/17 06:02 Lopressor - PO 50 mg TID MAU Administration Polyethylene Glycol 17 gm 08/05/17 11:45 08/05/17 21:18 Miralax (For Daily Use) - PO 17 gm BID MAU Administration Vital Signs Period Temp Pulse Resp BP Sys/Rausch Pulse Ox Last 24 Hr 97.5 F-98.3 F 58-72 18-20 122-142/59-88 93-99 nad, calm jvd increased, neck supple cta bl, nl effort rrr nl s1, s2. no mrg. + bs soft nt nd ext without e/c/c aaox3 no jaundice, diaphoresis. CBC, BMP 08/06/17 05:18 08/06/17 05:18 EKG 07/31 #1: nsr, 99 bpm. lad. prolonged qt. New downsloping STD in the anterolateral leads. EKG 07/31 #2: nsr, 85 bpm. lad. prolonged qt. anterolateral changes still present but much improved. tele: sr, occ pvcs echo 10/2016: nl lv/rv, no sig valve path mibi 10/2016: nl mpi, nl lvef a/p: 77 yo with h/o cad (s/p mild mi 1990 per pt tx with cath/angioplasty), htn , hl, carotid dz s/p left cea 02/2017, ESRD s/p AV fisutula last month in anticipation of HD initiation, htn, hld, dm here with cp/nstemi. CP/nstemi/known cad - Initial EKG borderline tachycardic with new ekg changes (improved on follow up ekg after heart rate slowed). - 07/31: ACS protocol: asa, plavix, heparin, statin. nitroglycerin to keep patient cp free and sys bp < 140. Can add metoprolol tartrate 25 mg or 50 mg ( depending on bp) TID to maintain HR < 70. s/p lasix 120 mg x 1 today with good uop response. Would repeat dose tomorrow. Can use bipap if needed. - 08/01: ACS protocol, day 2 of heparin, con't. Echo today to assess EF and evaluate for ischemic MR. Will uptitrate lopressor for goal HR < 70. Begin weaning nitro drip. Addition of anti-anginal/anti-hypertensive depending on EF. Con't lasix 120 mg IV daily for pulmonary edema. - discussed recommendation for cardiac catheterization with patient and family. Patient states he would like to be dnr/dni. Counseled patient on the need to temporarily reverse dnr/dni jordy-procedure in order to get cardiac catheterization and patient declining. --> con't medical management of nstemi per patient preference. If EF is normal and no ischemic MR than not unreasonable to pursue conservative strategy. - 08/02-: ACS protocol completed. Pt remains cp free. Echo with only mild LV dysfunction, no significant MR. Pursuing medical mgm't of nstemi per patient preference. Cont dapt. htn - con't current regimen, HR/bp reasonable overall control on metoprolol, imdur , hydralazine. Hld - con't statin s/p L CEA 02/2017 - no neurologic sx's. anti-platelets, statin as above ESRD s/p AV fistula last month in anticipation of HD initiation (not yet mature) , now s/p permacath - cont hd per renal cardiac franz stable for dc
--- NOTE | 2017-08-06 09:36 | PN ---
Progress Note (short form) - Note Progress Note: Anesthesia Post Op Pt seen and examined S;alert and awake O: Vital Signs Temperature 98.3 F 08/06/17 03:43 Pulse Rate 66 08/06/17 03:43 Respiratory Rate 18 08/06/17 03:43 Blood Pressure 132/66 08/06/17 03:43 O2 Sat by Pulse Oximetry (%) 98 08/05/17 20:19 CBC, BMP 08/06/17 05:18 08/06/17 05:18 A/P: Current Active Problems ACS (acute coronary syndrome) (Acute) CHF (congestive heart failure) (Acute) CKD (chronic kidney disease) stage 5, 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 ml/min (Acute) Diabetes (Acute) Dyslipidemia (Acute) End stage chronic kidney disease (Acute) Hypertension (Acute) Hypoxia (Acute) Non-ST elevation [place] (NSTEMI) (Acute) Volume overload (Acute) s/p portacath insertion Doing well post op Continue current care Jesus Jasso MD
[2017-08-06 10:45] VITALS: PULSE 69
[2017-08-06] MEDS: ASPIRIN COATED 81 MG TABLET.EC PO SCH (12:03)
[2017-08-06] MEDS: DOCUSATE SODIUM 100 MG CAPSULE (FP) PO SCH (12:04)
[2017-08-06] MEDS: ISOSORBIDE MONONITRATE 30 MG TAB.SR.24H (FP) PO SCH (12:04)
[2017-08-06] MEDS: POLYETHYLENE GLYCOL 3350 119 GM BTL PO SCH (12:04)
[2017-08-06] MEDS: hydrALAZINE HCL 10 MG TABLET PO SCH (12:05)
[2017-08-06] MEDS: CLOPIDOGREL BISULFATE 75 MG TABLET (FP) PO SCH (12:05)
--- NOTE | 2017-08-06 12:16 | PN ---
Progress Note (short form) - Note Progress Note: Feels OK. S/P HD access yesterday. No CP or SOB. No acute events overnight. Intake & Output 08/03/17 08/04/17 08/05/17 08/06/17 23:59 23:59 23:59 23:59 Intake Total 336 20 460 450 Output Total 200 5 Balance 136 20 455 450 Weight 140 lb 137 lb 8 oz 138 lb 9.6 oz 140 lb 4 oz Last Vital Signs Temp Pulse Resp BP Pulse Ox 98.3 F 69 18 132/66 95 08/06/17 03:43 08/06/17 10:44 08/06/17 03:43 08/06/17 03:43 08/06/17 10:44 Active Medications Acetaminophen (Tylenol -) 325 mg PO Q4H PRN PRN Reason: FEVER OR PAIN Aspirin (Ecotrin -) 81 mg PO DAILY [facility] Last Admin: 08/06/17 12:03 Dose: 81 mg Atorvastatin Calcium (Lipitor -) 80 mg PO HS [facility] Last Admin: 08/05/17 21:18 Dose: 80 mg Clopidogrel Bisulfate (Plavix -) 75 mg PO DAILY [facility] Last Admin: 08/06/17 12:05 Dose: 75 mg Docusate Sodium (Colace -) 100 mg PO BID [facility] Last Admin: 08/06/17 12:04 Dose: 100 mg Hydralazine HCl (Apresoline -) 10 mg PO BID [facility] Last Admin: 08/06/17 12:05 Dose: 10 mg Isosorbide Mononitrate (Imdur -) 30 mg PO BID [facility] Last Admin: 08/06/17 12:04 Dose: 30 mg Metoprolol Tartrate (Lopressor -) 50 mg PO TID [facility] Last Admin: 08/06/17 06:02 Dose: 50 mg Polyethylene Glycol (Miralax (For Daily Use) -) 17 gm PO BID [facility] Last Admin: 08/06/17 12:04 Dose: 17 gm Constitutional: Yes: NAD Eyes: Yes: WNL HENT: Yes: WNL Neck: Yes: WNL Cardiovascular: Yes: Regular Rate and Rhythm, S1, S2 Respiratory: Yes: Few bibasilar rhonhci Gastrointestinal: Yes: Normal Bowel Sounds, Soft Extremities: Yes: WNL Edema: No Labs: Laboratory Results - last 24 hr 08/06/17 08/06/17 05:18 05:18 WBC 8.7 RBC 3.46 L Hgb 9.9 L Hct 29.8 L MCV 85.9 MCH 28.4 MCHC 33.1 RDW 15.1 Plt Count 246 MPV 9.5 Sodium 136 Potassium 4.0 Chloride 97 L Carbon Dioxide 26 Anion Gap 13 BUN 101 H D Creatinine 9.7 H* D Random Glucose 124 H Calcium 8.5 Phosphorus 8.1 H Magnesium 2.3 Problem List - Problems (1) ACS (acute coronary syndrome) Code(s): I24.9 - ACUTE ISCHEMIC HEART DISEASE, UNSPECIFIED (2) CHF (congestive heart failure) Code(s): I50.9 - HEART FAILURE, UNSPECIFIED Qualifiers: Congestive heart failure type: systolic Congestive heart failure chronicity: acute Qualified Code(s): I50.21 - Acute systolic (congestive ) heart failure; I50.21 - Acute systolic (congestive) heart failure; I50.21 - Acute systolic (congestive) heart failure; I50.21 - Acute systolic (congestive) heart failure (3) CKD (chronic kidney disease) stage 5, 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 ml/min Code(s): N18.5 - CHRONIC KIDNEY DISEASE, STAGE 5 (4) Diabetes Code(s): E11.9 - TYPE 2 DIABETES MELLITUS WITHOUT COMPLICATIONS Qualifiers: Diabetes mellitus type: type 2 Diabetes mellitus complication status: with kidney complications Diabetes mellitus complication detail: with chronic kidney disease Diabetes mellitus nursing home insulin use: without nursing home use Chronic kidney disease stage: stage 5, not on chronic dialysis Qualified Code(s): E11.22 - Type 2 diabetes mellitus with diabetic chronic kidney disease; E11.22 - Type 2 diabetes mellitus with diabetic chronic kidney disease; E11.22 - Type 2 diabetes mellitus with diabetic chronic kidney disease; E11.22 - Type 2 diabetes mellitus with diabetic chronic kidney disease; E11.22 - Type 2 diabetes mellitus with diabetic chronic kidney disease; N18.1 - Chronic kidney disease, stage 1; N18.1 - Chronic kidney disease, stage 1; 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; Z79.4 - longterm (current) use of insulin; 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
[2017-08-06 12:40] VITALS: BP 130/77; TEMP 98.7
--- NOTE | 2017-08-08 14:47 | PATH ---
Surgical Pathology Report Patient Name: RAUL DOTY Med. Rec. #: [id number] /Age/Gender: 1940 (Age: 77) / M Account: [id number] Location: 4 W TELEMETRY U Taken: 08/05/2017 Received: 08/05/2017 Reported: 08/08/2017 Physicians: Beryl Milton M.D. Specimen(s) Received OLD FEMORAL CATHETER Clinical History End stage renal disease Final Diagnosis ROOFER, FEMORAL, REMOVAL: DOUBLE LUMEN CATHETER (GROSS ONLY). Electronically Signed David Nunez M.D. Gross Description Received fresh labeled "old femoral catheter," is a 33 cm in length double lumen catheter which is partially wrapped in gauze. No soft tissue is present. No sections are submitted, gross only. DL/08/05/2017 saudi08/05/2017
[2017-08-08 16:19] LABS: HEP B SURFACE AB Non Reactive (.)
== END 2017-08-06 14:14 | disposition left against medical advice (07) | DRG 280 ==
LOC: JER 09:13 → JERBED 12:05 → JICU 14:01 → J4W 08-02 16:40
PROVIDERS: ADMIT Internal Medicine; ATTEND Nurse Practitioner Acute Care
PROC: 02H633Z Insertion of Infusion Device into Right Atrium, Percutaneous Approach (ICD-10-PCS; principal; 2017-08-03)
PROC: B214YZZ Fluoroscopy of Right Heart using Other Contrast (ICD-10-PCS; 2017-08-03)
PROC: 5A1D70Z Performance of Urinary Filtration, Intermittent, Less than 6 Hours Per Day (ICD-10-PCS; 2017-08-04)
PROC: 02H633Z Insertion of Infusion Device into Right Atrium, Percutaneous Approach (ICD-10-PCS; 2017-08-05)
PROC: B244ZZZ Ultrasonography of Right Heart (ICD-10-PCS; 2017-08-05)
PROC: 06PYX3Z Removal of Infusion Device from Lower Vein, External Approach (ICD-10-PCS; 2017-08-05)
DX: I21.4 Non-ST elevation (NSTEMI) myocardial infarction (principal); N18.6 End stage renal disease; I50.21 Acute systolic (congestive) heart failure; I16.1 Hypertensive emergency; I13.2 Hypertensive heart and chronic kidney disease with heart failure and with stage 5 chronic kidney disease, or end stage renal disease; E78.5 Hyperlipidemia, unspecified; Z87.891 Personal history of nicotine dependence; I25.10 Atherosclerotic heart disease of native coronary artery without angina pectoris; E11.22 Type 2 diabetes mellitus with diabetic chronic kidney disease; I45.81 Long QT syndrome
CPT/HCPCS: 36415; 71010-TC; 76000-TC; 80048; 80053; 81003; 81015; 82550; 82553; 83605; 83735; 83880; 84100; 84484; 85025; 85027; 85610; 85730; 86704; 86706; 86708; 86803; 87040; 87086; 87340; 88300-TC; 93005; 93010; 93306-TC; 94660; 94760; 97116-GP; 97161-GP; 99285-25; J1644